=== PATIENT | male | born 1955 | race Caucasian/White ===

== ENCOUNTER 2017-09-30 07:44 | Inpatient (IN) | payer OTHER, MEDICARE, SELFPAY ==
[2017-09-30] VITALS (13 sets, daily range): BP systolic 105–159; BP diastolic 69–77; PULSE 85–112; RESP 18–32; TEMP 37.4–38.2; O2SAT 95–97; BMI 25.0
[2017-09-30 07:56] LABS: Bedside Glucose 327 mg/dL (70-110)
--- NOTE | 2017-09-30 07:57 | ED.RN ---
PT STATES THAT HIS FALL HIS FROM HIS RT FOOT. UNKNOWN CAUSE OF SWELLING. PT STATES THAT IT IS A BURNING FEELING. WOKE UP APPROX 3 DAYS AGO WITH HIS RT FOOT SWELLING.
--- NOTE | 2017-09-30 08:03 | RAD_ITS ---
STUDY: X-RAY CHEST REASON FOR EXAM: Male, 61 years old. Cough. TECHNIQUE: Single AP portable view of the chest. COMPARISON: Comparison is made with prior study dated September 23, 2017. FINDINGS: EKG electrodes are seen. The lungs are clear and expanded. There is no demonstrated pleural abnormality. Normal size heart. Normal mediastinum and catherine. Normal visualized pulmonary arteries. Normal visualized aortic arch and descending thoracic aorta. There are diffuse degenerative changes of the visualized thoracic spine. Normal visualized ribs, clavicles, and shoulders. There is no demonstrated abnormality of the visualized soft tissue structures of the upper abdomen. RAD/Chest 1 View (Portable) IMPRESSION: The lungs are clear. Electronically Signed: Abel Casas MD at 9:23 EST Tel [phone], Service support ,
--- NOTE | 2017-09-30 08:05 | RAD_ITS ---
STUDY: X-RAY - RIGHT FOOT CLINICAL: Male, 61 years old. Swelling and bruising following a recent fall. TECHNIQUE: 4 view(s) of the foot. COMPARISON: None. FINDINGS: There is a plantar calcaneal spur. Normal visualized subtalar, talonavicular, calcaneocuboid, tarsal and tarsometatarsal articulations. Normal metatarsi. Normal metatarsophalangeal joint of the great toe. Normal tibial and fibular sesamoid bones. Normal interphalangeal joint of the great toe. Normal phalanges of the great toe. Normal second through fifth metatarsophalangeal joints. MR toe deformity. Diffuse soft tissue swelling. RAD/Foot min 3 Views IMPRESSION: Diffuse soft tissue swelling. Electronically Signed: Abel Casas MD at 9:25 EST Tel [phone], Service support ,
[2017-09-30 08:33] LABS: Absolute Lymphocyte Count 1.14 X10^3/ul (0.83-4.51); Absolute Neutrophil Count 15.9 X10^3/uL (2.0-7.7); Basophil# 0.01 X10^3/uL; Basophil% 0.1 % (0-1); Hematocrit 43.1 % (40-54); Hemoglobin 14.4 g/dl (13.0-16.5); Lymphocyte # 1.14 X10^3/ul (4.0); Lymphocyte % 6.1 % (19-41); Mean Corp Hgb Conc 33.4 g/gl (32-36); Mean Corpuscular Hgb 30.3 pg (27.0-32.0); Mean Corpuscular Volume 90.7 fL (80-94); Mean Platelet Vol. 10.1 fl (6.2-12.0); Monocyte# 1.55 X10^3/uL; Monocyte% 8.3 % (0-10); Neutrophil # 15.85 X10^3/uL (2.7-7.7); Neutrophil % 85.3 % (47-70); Platelet Count 148 K/mm3 (150-450); RBC Distribution Width CV 13.7 % (11.6-14.6); RBC Distribution Width SD 45.3 fl (35.1-43.9); Red Blood Count 4.75 M/mm3 (4.6-6.2); White Blood Count 18.6 K/mm3 (4.4-11.0)
[2017-09-30 08:35] LABS: Differential Indicated SCAN CRITERIA MET; POSITIVE COUNT NO; POSITIVE DIFFERENTIAL YES; POSITIVE MORPHOLOGY YES
[2017-09-30] MEDS: 0.9% Normal Saline 1,000 ML 150 ML IV ×3 (08:42→22:40)
[2017-09-30 08:49] LABS: ALB/GLOB Ratio 0.6 RATIO (0.9-2.4); AST(SGOT) 167 U/L (15-37); Alanine Aminotransfer ALT/SGPT 50 U/L (12-78); Albumin, Serum 3.2 g/dL (3.4-5.0); Alkaline Phosphatase 78 U/L (45-117); Anion Gap 12 (5-15); BUN 40 mg/dL (7-18); BUN/Creat Ratio 22.6 RATIO (10-20); Calcium,Total 9.6 mg/dL (8.5-10.1); Chloride 98 mmol/L (98-107); Creatinine, Serum 1.77 mg/dL (0.70-1.30); EST Glomerular Filtration Rate 41 mL/min (>60); Est Glom Filt Rate - Afr Amer 50 mL/min (>60); Glucose 356 mg/dL (70-110); Protein, Total 8.2 g/dL (6.4-8.2); Sodium Level 134 mmol/L (136-145)
--- NOTE | 2017-09-30 08:57 | ED.RN ---
LACTIC ACID 2.[address] THE LAB. DR TIRADO AWARE
[2017-09-30 08:59] LABS: Lactic Acid 2.8 mmol/L (0.4-2.0)
--- NOTE | 2017-09-30 09:08 | ED.VISSUMM ---
- ER Visit Summary Date of Service: 09/30/17 Chief Complaint: [Fall with right foot pain] History of Present Illness: The patient is a 61 M [resents the emergency department with pain in his right foot. Patient somewhat of a poor informant but does describe a fall about 3 days ago. Patient thinks he may have injured his foot at that time. He has had some discomfort in his right foot but was more severe this morning around 5 AM. Patient apparently attempted to get out of his seat at some point this morning and started to follow-up with somebody caught him and cannot help him down of the floor. He denies any injuries this morning. Patient denies fever. Patient has had a slight cough. Patient lives in a intermediate. Patient does not have a primary care physician locally.] Physical Examination: [HEENT-PERRLA, EOMI. Cranial nerves II through XII grossly intact. TMs clear. Mucous membranes dry. No adenopathy. Cardiovascular-regular rate and rhythm without murmur or ectopy Lungs-clear to auscultation, chest wall stable without crepitus or subcu emphysema Abdomen-normoactive bowel sounds, soft, nontender, no rebound or rigidity, no peritoneal signs. Extremities-intact ?4. Right foot-patient has diffuse erythema and ecchymosis noted. Patient has blistering to the sole of the foot noted with tenderness to palpation. She has some fluctuance noted over the area of blistering. There is a foul odor from the foot. Patient has normal dorsal pedal and posterior tibial pulses and normal cap refill. Test Results: [Blood cultures ordered. CBC with differential obtained showed an elevated white blood cell count of 18.6, hemoglobin 14, hematocrit 43, platelets 148. Chemistries unremarkable. BUN was 40, creatinine 1.77, glucose 356. X-rays of the right foot showed soft tissue swelling and no fractures noted and no evidence of osteomyelitis on my interpretation however official report from radiology pending. Chest x-ray also showed nothing acute as per my interpretation.] Lactate was elevated 2.8. Emergency Department Course and Treatment: [Patient was started on vancomycin and Unasyn IV. Patient received a 2 L normal saline fluid bolus.] Treatment Plan: [Admit for IV antibiotics and surgical consultation for possible I&D of right foot.] Disposition: [Admit] Impression: [Cellulitis/abscess right foot in diabetic patient Sepsis Renal insufficiency Diabetes] This note was generated with [employer] dictation software. It may contain incorrect words, spelling, and punctuation that were not noted in review of the chart prior to signing ED Disposition - Plan for ED Patient: Chief Complaint: Fall Referrals: Care Physician,No Primary [Primary Care Provider] -
--- NOTE | 2017-09-30 09:14 | ED.DCSUM_ITS ---
- ER Visit Summary Date of Service: 09/30/17 Chief Complaint: [Fall with right foot pain] History of Present Illness: The patient is a 61 M [resents the emergency department with pain in his right foot. Patient somewhat of a poor informant but does describe a fall about 3 days ago. Patient thinks he may have injured his foot at that time. He has had some discomfort in his right foot but was more severe this morning around 5 AM. Patient apparently attempted to get out of his seat at some point this morning and started to follow-up with somebody caught him and cannot help him down of the floor. He denies any injuries this morning. Patient denies fever. Patient has had a slight cough. Patient lives in a care home. Patient does not have a primary care physician locally.] Physical Examination: [HEENT-PERRLA, EOMI. Cranial nerves II through XII grossly intact. TMs clear. Mucous membranes dry. No adenopathy. Cardiovascular-regular rate and rhythm without murmur or ectopy Lungs-clear to auscultation, chest wall stable without crepitus or subcu emphysema Abdomen-normoactive bowel sounds, soft, nontender, no rebound or rigidity, no peritoneal signs. Extremities-intact ?4. Right foot-patient has diffuse erythema and ecchymosis noted. Patient has blistering to the sole of the foot noted with tenderness to palpation. She has some fluctuance noted over the area of blistering. There is a foul odor from the foot. Patient has normal dorsal pedal and posterior tibial pulses and normal cap refill. Test Results: [Blood cultures ordered. CBC with differential obtained showed an elevated white blood cell count of 18.6, hemoglobin 14, hematocrit 43, platelets 148. Chemistries unremarkable. BUN was 40, creatinine 1.77, glucose 356. X-rays of the right foot showed soft tissue swelling and no fractures noted and no evidence of osteomyelitis on my interpretation however official report from radiology pending. Chest x-ray also showed nothing acute as per my interpretation.] Lactate was elevated 2.8. Emergency Department Course and Treatment: [Patient was started on vancomycin and Unasyn IV. Patient received a 2 L normal saline fluid bolus.] Treatment Plan: [Admit for IV antibiotics and surgical consultation for possible I&D of right foot.] Disposition: [Admit] Impression: [Cellulitis/abscess right foot in diabetic patient Sepsis Renal insufficiency Diabetes] This note was generated with [employer] dictation software. It may contain incorrect words, spelling, and punctuation that were not noted in review of the chart prior to signing ED Disposition - Plan for ED Patient: Chief Complaint: Fall Referrals: Care Physician,No Primary [Primary Care Provider] -
--- NOTE | 2017-09-30 09:22 | PCM.HP.STD ---
Problem List (1) Falls Status: Acute (2) Diabetic foot infection Status: Chronic (3) Type 2 diabetes mellitus Status: Acute (4) Sepsis Status: Acute (5) Acute kidney injury Status: Acute (6) Hypertension Status: Chronic History of Present Illness Date of Admission: 09/30/17 Chief Complaint: Falls, foot infection The patient is a 61 year old M past medical history of type II DM complicated by peripheral neuropathy, hypertension, hyperlipidemia who comes in with complaints of pain in his right foot and a history of fall 3 days prior. Patient is a and follows up with the [facility], and is reportedly living in the halfway. History of bipolar disorder and drug use. He complains of chills but denied any fever. States he has had discomfort in his right foot for some time. He last had a fall this morning. Denied any chest pain no dizziness or feeling of going to pass out. Vitals in the ED showed temperature of 99.3F, heart rate was 112, blood pressure is 159/74, respiratory rate was 24 was saturating well at 96% on room air. WBC was 18.6, b 14.4, Plt 148, Na 134, 5.0, Cl 98, Co2 24, BUN 40, Cr 1.77, HbA1c 7.3, admitting lactic acid was 2.8 CXR was unremarkable. Right foot x-ray showed diffuse soft tissue swelling. CT scan of right foot showed degenerative changes, diffuse soft tissue edema without discrete drainable abscess. Past Medical History Past Medical History (Chronic Problems): Chronic Problems Diabetic foot infection (Chronic) Hypertension (Chronic) Allergies HYDROCODONE Allergy (Uncoded 09/30/17 07:54) Unknown Home Medications: Ambulatory Orders Medication Instructions Recorded Acetaminophen [Tylenol] 325 mg PO TID PRN 09/30/17 Ammonium Lactate 1 dose TOPICAL DAILY 09/30/17 Aspirin 81 mg PO DAILY 09/30/17 Capsaicin 1 dose TOPICAL DAILY 09/30/17 Diclofenac 4 gm TOPICAL BID 09/30/17 Divalproex Sodium [Depakote ER] 4 tab PO QHS 09/30/17 Gabapentin [Neurontin] 2 tab PO TID 09/30/17 Hydrochlorothiazide [Hctz] 25 mg PO DAILY 09/30/17 Lisinopril [Zestril] 20 mg PO BID 09/30/17 Metoprolol Tartrate [Lopressor 25 mg PO BID 09/30/17 (Beta Kely)] Twilight-3 Fatty Acids/Fish Oil [Fish 2 cap PO BID 09/30/17 Oil 1,000 mg Capsule] Primidone [Mysoline] 50 mg PO BID 09/30/17 Quetiapine Fumarate 3.5 tab PO QHS 09/30/17 Simvastatin 40 tab PO QHS 09/30/17 Tamsulosin HCl [Flomax] 1 tab PO DAILY 09/30/17 Surgical History: - - unknown Psychiatric History: No pertinent psych hx Smoking Status: Current every day smoker Tobacco Use: Cigarettes Alcohol: None Drugs: Cocaine - history - *Family History Maternal History Items: No pertinent history Paternal History Items: No pertinent history Review of Systems Constitutional: Denies: Anorexia, Chills, Fever, Malaise, Weakness, Weight Change Eyes: Denies: Blurred vision, Cataracts, Conjunctivae Inflammation, Pain, Redness HEENT: Denies: Difficulty Swallowing, Head Aches, Hearing Changes, Nasal Congestion, Sinus Congestion, Sinus Drainage, Sore Throat, Visual Changes Cardiovascular: Denies: Chest Pain, Claudication, Edema, Orthopnea, Palpitations, Paroxysmal Noc. Dyspnea, Syncope Respiratory: Denies: Cough, Shortness of Breath, Shortness of breath at rest, Shortness of breath upon exertion, Sputum production Gastrointestinal: Denies: Abdominal Pain, Constipation, Hematemesis, Nausea, Vomiting Genitourinary: Denies: Dysuria, Frequency, Incontinence Musculoskeletal: Denies: Joint Pain, Joint stiffness, Joint swelling, Joint Tenderness Skin: Denies: Dryness, Jaundice, Rash, Wounds Neurological: Denies: Blurred vision, Double vision, Difficulty swallowing, Focal weakness, Numbness, Tingling Psychiatric: Denies: Anxiety, Depression, Homicidal Ideations, Suicidal Ideations Endocrine: Denies: Change in Body Habitus, Heat/ Cold Intolerance Hematologic/ Lymphatic: Denies: Anemia, Easy Bruising, Easy Bleeding, Petechiae VTE Information - Inpt Only VTE Present on Admission: No VTE Pharm Prophylaxis ordered?: Yes Patient Problems: Active and Suspected Problems Falls (Acute) Type 2 diabetes mellitus (Acute) Sepsis (Acute) Acute kidney injury (Acute) Type 2 diabetes mellitus with diabetic polyneuropathy (Acute) Abscess of right foot (Acute) - Physical Exam General: Alert, Oriented x3, Cooperative, No apparent distress HEENT: Atraumatic, PERRLA, EOMI, Normocephalic Oral: Moist Mucosa Neck: Supple Lungs: Clear to auscultation, Normal air movement Cardiovascular: Regular rate, Regular Rhythm, Normal S1, Normal S2, No murmurs Abdomen: Bowel Sounds Present, Soft, Non Tender, Non-Distended, No Hepato-splenomegaly Extremities: Edema - of the right foot with erythema extending over the lower leg. Prominent bulge of the right plantar surface with ecchymosis and erythema, Tenderness, - - Diminished pulses of the right foot Skin: No rashes, No breakdown Musculoskeletal: No Tenderness to Palpation of Joints or Extremities Lymphatic: No Cervical, Supraclavicular, or Inguinal Adenopathy Neurological: Cranial nerves II-XII grossly intact, Neuro grossly intact Psych/Mental Status: Normal Affect, Appropriate Vital Signs Temp Pulse Resp BP Pulse Ox 99.3 F H 107 H 24 H 159/74 H 96 09/30/17 07:45 09/30/17 07:55 09/30/17 07:45 09/30/17 07:45 09/30/17 07:45 Oxygen Delivery Method Room Air Weight: 97.7 kg Body Mass Index (BMI) 30.0 Finger Stick Blood Glucose 256 Laboratory Tests Past 24 Hrs 09/30/17 09/30/17 09/30/17 08:13 08:13 08:13 WBC 18.6 H RBC 4.75 Hgb 14.4 Hct 43.1 MCV 90.7 MCH 30.3 MCHC 33.4 RDW 13.7 RDW Differential 45.3 H Plt Count 148 L MPV 10.1 Immature Gran % (Auto) 0.200 Neut % (Auto) 85.3 H Lymph % (Auto) 6.1 L [place] % (Auto) 8.3 Eos % (Auto) 0.0 Baso % (Auto) 0.1 Absolute Neuts (auto) 15.9 H Absolute Lymphs (auto) 1.14 Total Counted Pending Sodium 134 L Potassium 5.0 Chloride 98 Carbon Dioxide 24.0 Anion Gap 12 BUN 40 H Creatinine 1.77 H Estim Creat Clear Calc 45.50 Est GFR (MDRD) Af Amer 50 L Est GFR (MDRD) Non-Af 41 L BUN/Creatinine Ratio 22.6 H Glucose 356 H Lactic Acid 2.8 H Calcium 9.6 Total Bilirubin 0.60 AST 167 H ALT 50 Alkaline Phosphatase 78 Total Protein 8.2 Albumin 3.2 L Globulin 5.0 H Albumin/Globulin Ratio 0.6 L POC Glucose 09/30/17 07:49 POC Glucose 327 H Assessment/Plan Active and Suspected Problems Falls (Acute) Type 2 diabetes mellitus (Acute) Sepsis (Acute) Acute kidney injury (Acute) Type 2 diabetes mellitus with diabetic polyneuropathy (Acute) Abscess of right foot (Acute) 61y/o male with PMHx of hypertension, Type 2 DM complicated by neuropathy, bipolar disorder who comes in with complaints of right leg swelling and falls 1. Sepsis secondary to Right foot and lower extremity swelling, secondary to diabetic foot infection, CT scan of the leg as well as foot x-ray did not show any discrete abscess, patient has a noticeable collection in the plantar surface of the right foot, Patient has tachycardia, elevated white cell count, acute kidney injury, source of infection being the right foot. Lactic acid was 2.8 on admission, repeat has been 1.9 Plan: admit to [place], on telemetry, Podiatry consult, IV vancomycin and Zosyn, infectious disease consult, pain control, Doppler ultrasound of the right lower extremity 2. DM, type II complicated by peripheral neuropathy, with history of recurrent falls, and is on large doses of insulin, would start patient on half the dose of insulin and slowly working up, will continue on Accu-Cheks and insulin sliding scale, HbA1c 7.3, continue also on gabapentin 3. Hypertension, controlled, on metoprolol, hydrochlorothiazide and lisinopril, continue same and continue to monitor 4. Hyperlipidemia, on simvastatin 5. Bipolar disorder, on Seroquel and Depakote 6. Acute kidney injury likely related to current infection, will continue on IV fluids, recheck BMP in a.m. 7. DVT prophylaxis on Lovenox subcu Code Visit Inpatient E&M: 02902 Init Hosp L2
--- NOTE | 2017-09-30 09:24 | ED.RN ---
PT HAS BEEN UNABLE TO PROVIDE A UA AT THIS TIME. PER MD, DO NOT CATH AT THIS TIME.
[2017-09-30] MEDS: 0.9% Normal Saline 1,000 ML 1000 ML IV ×2 (09:28→10:25)
--- NOTE | 2017-09-30 09:49 | CT_ITS ---
STUDY: CT RIGHT FOOT REASON FOR EXAM: Male, 61 years old. Diabetic foot, suspected abscess RADIATION DOSAGE (If Supplied By Facility): CTDIvol = ( 7.68 ) mGy, DLP = ( 236.51 ) mGycm TECHNIQUE: Thin section transaxial imaging of the foot was obtained, with sagittal and coronal reconstructed images. Individualized dose optimization techniques were used for this CT. COMPARISON: Right foot films 09/30/2017 FINDINGS: There is no fracture or bony erosion. An enthesophyte is seen at the insertion of the Achilles tendon. A plantar calcaneal spur is present. There is slight subluxation of the navicular on the talus medially. Degenerative changes are seen within the midfoot. Normal metatarsi. Normal metatarsophalangeal joint of the great toe. Normal tibial and fibular sesamoid bones. Normal interphalangeal joint of the great toe. Normal phalanges of the great toe. Normal second through fifth metatarsophalangeal joints. Normal interphalangeal joints and phalanges of the lesser toes. There is diffuse soft tissue edema. No definite well-defined, drainable fluid collection. CT/Extremity Lower without Contra IMPRESSION: No discrete bony erosion. Degenerative changes, as detailed above. Diffuse soft tissue edema, without discrete drainable abscess. Electronically Signed: Asad Alford DO at 10:35 EST Tel , Service support ,
--- NOTE | 2017-09-30 10:31 | CON.PCM_ITS ---
Problem List (1) Diabetic foot infection Status: Acute Reason for Consult: foot infection Consulted by: Dr. Jones History of Present Illness: The patient is a 61 year old M with T2DM who presented with one week of progressive R foot pain, swelling, redness. Pain was severe, burning. No inciting events or trauma. Has some neuropathy. Developed fever and shaking chills. No recent abx. No drainage from foot. Came to ED, found to be septic , vanc/unasyn ordered, bcx sent. Full ROS Performed and neg except as noted above. - Medical History Past Medical History (Chronic Problems): Chronic Problems Hypertension (Chronic) Allergies/Adverse Reactions: Allergies HYDROCODONE Allergy (Uncoded 09/30/17 07:54) Unknown Home Medications: Ambulatory Orders Medication Instructions Recorded Acetaminophen [Tylenol] 325 mg PO TID PRN 09/30/17 Ammonium Lactate 1 dose TOPICAL DAILY 09/30/17 Aspirin 81 mg PO DAILY 09/30/17 Capsaicin 1 dose TOPICAL DAILY 09/30/17 Diclofenac 4 gm TOPICAL BID 09/30/17 Divalproex Sodium [Depakote ER] 4 tab PO QHS 09/30/17 Gabapentin [Neurontin] 2 tab PO TID 09/30/17 Hydrochlorothiazide [Hctz] 25 mg PO DAILY 09/30/17 Lisinopril [Zestril] 20 mg PO BID 09/30/17 Metoprolol Tartrate [Lopressor 25 mg PO BID 09/30/17 (Beta Kely)] Farber-3 Fatty Acids/Fish Oil [Fish 2 cap PO BID 09/30/17 Oil 1,000 mg Capsule] Primidone [Mysoline] 50 mg PO BID 09/30/17 Quetiapine Fumarate 3.5 tab PO QHS 09/30/17 Simvastatin 40 tab PO QHS 09/30/17 Tamsulosin HCl [Flomax] 1 tab PO DAILY 09/30/17 - Social History SMOKING STATUS:: Current every day smoker Drug Use: none Vital Signs Temp Pulse Resp BP Pulse Ox 99.4 F H 105 H 28 H 159/74 H 97 09/30/17 09:21 09/30/17 09:45 09/30/17 09:21 09/30/17 09:45 09/30/17 09:21 - Other Studies Radiology: [] reviewed Other Studies: [] Route of nutrition/ use of supplements: [] Nutritional Intake: [] IV Site: [] Hart Catheter: [] - Physical Exam General: Alert, Cooperative, - - ill appearing, shaking HEENT: Atraumatic, PERRLA, EOMI Neck: Supple, No Nodes Lungs: Clear to auscultation, Normal air movement Cardiovascular: No murmurs, Tachycardic Abdomen: Bowel Sounds Present, Soft, Non Tender, Non-Distended Extremities: Edema Skin: - - R foot with swelling, redness, tenderness, and ecchymosis on plantar side IV Site: Peripheral, without redness Neurological: Cranial nerves II-XII grossly intact - Assessment/Plan Antibiotics: [] Assessment/Plan: [] Active and Suspected Problems Falls (Acute) Diabetic foot infection (Acute) Type 2 diabetes mellitus (Acute) Sepsis (Acute) Acute kidney injury (Acute) Severe sepsis (leukocytosis, tachycardia, elevated lactate, GEMA) due to DM R foot infection, concerning for abscess/osteo - CT pending. Bcx sent. No open wound for culturing. Podiatry consulted. Would cover empirically with vanc/ zosyn. Likely will need surgical debridement, but will wait for imaging and podiatry eval. Thank you, will follow, d/w Dr. Jones.
--- NOTE | 2017-09-30 10:32 | ED.RN ---
[facility] CALL[facility] AND [facility] NO B[facility]S
[2017-09-30 11:20] LABS: Bedside Glucose 335 mg/dL (70-110)
[2017-09-30 11:23] LABS: Hemoglobin A1c 7.3 % (4.2-6.3)
[2017-09-30] MEDS: Lisinopril 20 MG Tablet PO ×2 (12:16→21:00)
[2017-09-30] MEDS: Tamsulosin HCl 0.4 MG Capsule PO (12:16)
[2017-09-30] MEDS: Primidone 50 MG Tablet PO ×2 (12:16→17:32)
[2017-09-30] MEDS: Metoprolol Tartrate 25 MG Tablet PO ×2 (12:16→21:00)
[2017-09-30] MEDS: Aspirin 81 MG TAB.CHEW PO (12:16)
[2017-09-30] MEDS: Omega-3 Acid Ethyl Esters 1 GM Capsule 2 GM PO ×2 (12:16→21:00)
[2017-09-30] MEDS: Enoxaparin 40 MG/0.4 ML Syringe SC (12:17)
[2017-09-30] MEDS: Gabapentin 600 MG Tablet PO ×2 (12:22→17:32)
[2017-09-30 12:26] LABS: Reflex Lactate? Y
--- NOTE | 2017-09-30 13:11 | VDLE_ITS ---
Reason For Study: SWELLING RIGHT GSV is normal. CFV is compressible, spontaneous, phasic, competent and demonstrates normal augmentation. FV is compressible, spontaneous, phasic, competent and demonstrates normal augmentation. POP V is compressible, spontaneous, phasic, competent and demonstrates normal augmentation. T/P Trunk is compressible. PTV is compressible. RT PerV is compressible. Procedure Exam performed portable in patient room. A preliminary report was called and/or faxed to [facility]. Interpretation Summary Deep veins of the right lower extremity are patent and compressible segmentally. There is no evidence of right lower extremity deep vein thrombosis. Valvular competence appears intact within the proximal deep venous system on the right . The right greater saphenous vein appears patent and compressible segmentally. Ordering Physician: Samantha Jones Performed By: Kiki Vazquez, DAHLIA, RVT
--- NOTE | 2017-09-30 13:19 | PCM.RX.CS ---
Subjective/Objective Date: 09/30/17 Time: 13:19 Antibiotic: Vancomycin Type of Consult: New start Labs: Sodium 134 mmol/L (136-145) L 09/30/17 08:13 Potassium 5.0 mmol/L (3.5-5.1) 09/30/17 08:13 Chloride 98 mmol/L (98-107) 09/30/17 08:13 Carbon Dioxide 24.0 mmol/L (21.0-32.0) 09/30/17 08:13 Anion Gap 12 (5-15) 09/30/17 08:13 BUN 40 mg/dL (7-18) H 09/30/17 08:13 Creatinine 1.77 mg/dL (0.70-1.30) H 09/30/17 08:13 Est GFR (MDRD) Af Amer 50 mL/min (>60) L 09/30/17 08:13 Est GFR (MDRD) Non-Af 41 mL/min (>60) L 09/30/17 08:13 BUN/Creatinine Ratio 22.6 RATIO (10-20) H 09/30/17 08:13 Glucose 356 mg/dL (70-110) H 09/30/17 08:13 Pharmacy Plan for Drug Dosing: Goal vancomycin trough 10-15 mcg/mL. Recommend vancomycin 1500mg IV q24h for est trough 12 mcg/mL. Check prior to 4th dose. Increase if renal function improves to baseline. Pharmacy Service will continue to monitor and adjust dosing as required. Pharmacy to order these labs: Trough - Vancomycin Labs to be done on (date): 10/03/17 Labs to be done (time): 09:00
[2017-09-30 13:32] LABS: Lactic Acid 1.9 mmol/L (0.4-2.0)
--- NOTE | 2017-09-30 13:37 | PCM.CONS.GEN ---
Problem List (1) Type 2 diabetes mellitus with diabetic polyneuropathy Status: Acute (2) Abscess of right foot Status: Acute (3) Diabetic foot infection Status: Chronic (4) Sepsis Status: Acute (5) Charcot's joint of right foot Status: Acute Reason for Consult Date of Consultation: 09/30/17 Reason for Consultation: Right foot infection History of Present Illness: The patient is a 61 year old M with history of diabetes and other comorbidities as seen bedside this afternoon for right foot that is swollen, red, hot, and bruised. He reports he first noticed this condition on Thursday approximately 2 days ago. He denies trauma or puncture wound. He denies history of previous foot infections or ulcers. He is concerned he does not live in a clean environment and reports there are dogs going to the bathroom all over the house on a daily basis. He does have some right foot pain. He does not feel stable and denies claudication. It is not clear if he is ambulating at this time. He was seen by infectious disease earlier today who ordered a CT scan and this is pending. He is very lethargic during exam and is able to participate in a partial manner. Past Medical History Past Medical History (Chronic Problems): Chronic Problems Diabetic foot infection (Chronic) Hypertension (Chronic) Allergies HYDROCODONE Allergy (Uncoded 09/30/17 07:54) Unknown Home Medications: Ambulatory Orders Medication Instructions Recorded Acetaminophen [Tylenol] 325 mg PO TID PRN 09/30/17 Ammonium Lactate 1 dose TOPICAL DAILY 09/30/17 Aspirin 81 mg PO DAILY 09/30/17 Capsaicin 1 dose TOPICAL DAILY 09/30/17 Diclofenac 4 gm TOPICAL BID 09/30/17 Divalproex Sodium [Depakote ER] 4 tab PO QHS 09/30/17 Gabapentin [Neurontin] 2 tab PO TID 09/30/17 Hydrochlorothiazide [Hctz] 25 mg PO DAILY 09/30/17 Lisinopril [Zestril] 20 mg PO BID 09/30/17 Metoprolol Tartrate [Lopressor 25 mg PO BID 09/30/17 (Beta Kely)] [place]-3 Fatty Acids/Fish Oil [Fish 2 cap PO BID 09/30/17 Oil 1,000 mg Capsule] Primidone [Mysoline] 50 mg PO BID 09/30/17 Quetiapine Fumarate 3.5 tab PO QHS 09/30/17 Simvastatin 40 tab PO QHS 09/30/17 Tamsulosin HCl [Flomax] 1 tab PO DAILY 09/30/17 Lives: - - He lives with others in this location is not known if this is at a [facility] or with family or friends Smoking Status: Current every day smoker - *Family History Maternal History Items: No pertinent history Paternal History Items: No pertinent history Review of Systems Constitutional: Reports: Weakness, Fatigue. Denies: Chills, Fever Cardiovascular: Denies: Claudication Respiratory: Denies: Cough Musculoskeletal: Reports: Foot Pain. Denies: Leg Pain Skin: Reports: Skin Changes. Denies: Wounds Neurological: Reports: Numbness Patient Problems: Active and Suspected Problems Falls (Acute) Type 2 diabetes mellitus (Acute) Sepsis (Acute) Acute kidney injury (Acute) Type 2 diabetes mellitus with diabetic polyneuropathy (Acute) Abscess of right foot (Acute) Charcot's joint of right foot (Acute) - Physical Exam General: Alert, Cooperative, No apparent distress, Lethargic HEENT: Atraumatic Extremities: Diminished Peripheral Pulses, Edema - Right foot with calor Skin: - - Bulla to plantar medial arch with serous drainage only noted on drainage. Bulla sub-first metatarsal head of the right foot with serous drainage noted upon scalpel drainage. No purulence on expression. There is significant ecchymosis and some erythema to the plantar forefoot and medial arch of the right lower extremity. The compartments remain soft. There is no crepitus on palpation to the forefoot. Musculoskeletal: No Tenderness to Palpation of Joints or Extremities, Muscle Wasting, Tenderness - Pain to palpate arch and edema is noted. There is minimal laxity noted with the midfoot manipulation with discomfort Neurological: - - Lack of sensation light touch Psych/Mental Status: Normal Affect, Appropriate Vital Signs Temp Pulse Resp BP Pulse Ox 100.8 F H 108 H 32 H 137/71 H 97 09/30/17 11:07 09/30/17 12:16 09/30/17 11:07 09/30/17 11:07 09/30/17 11:07 Oxygen Delivery Method Room Air Weight: 81.4 kg Body Mass Index (BMI) 25.0 Intake and Output for Last 24 Hours 09/28/17 09/29/17 09/30/17 23:59 23:59 23:59 Intake Total 2177 / 2177 Balance 2176 / 217 Laboratory Tests Past 24 Hrs 09/30/17 12:50 Lactic Acid 1.9 POC Glucose 09/30/17 11:06 POC Glucose 335 H Assessment/Plan Active and Suspected Problems Falls (Acute) Type 2 diabetes mellitus (Acute) Sepsis (Acute) Acute kidney injury (Acute) Type 2 diabetes mellitus with diabetic polyneuropathy (Acute) Abscess of right foot (Acute) Charcot's joint of right foot (Acute) Right foot infection Differential and concurrent diagnosis also includes Charcot right talonavicular joint Sepsis diabetes with neuropathy High fall risk Other comorbidities I reviewed and discussed the patient case with him today. I reviewed his diagnostic data including his labs. His leukocytosis of 18.5 is noted. ESR and C-reactive protein are pending. 3 right foot x-rays are noted without soft tissue emphysema, definitive osseous destruction, or foreign body. There is no acute fracture noted. There is some subluxation of the navicular on the talus where approximately 70% of the joint is still congruent. There is edema noted. Clinically his foot is red and warm this is consistent with both an infection and Charcot event. I recommend treating both at this time. Infectious disease is on consultation and input is greatly appreciated. He continues on broad-spectrum antibiotics of vancomycin and Zosyn. After verbal consent and alcohol preparation a 15 blade was used to drain his bulla sites ?2 and a deep aerobic and anaerobic wound culture was obtained. His CT scan was also reviewed without definitive abscess or osseous destruction. Again, his soft tissue emphysema is noted And subluxation of the navicular of the talus. A dry gauze dressing and Kerlix and Jorge wrap was applied. He is advised to elevate this limb. To maintain a nonweightbearing strict status with assistive device and assistance from a staff medical member is encouraged. I will follow him closely while in house. If improvement is not clinically noted surgical drainage and exploration will be considered. Medical management and DVT prophylaxis per primary team is appreciated. I also recommend care coordination start for discharge planning; the patient expressed that he is not living safe conditions. Please not hesitate to call if you have any questions. Thank you very much for the consultation. Valery Faulkner, [facility] [phone]
--- NOTE | 2017-09-30 13:56 | CASEMGMT ---
Social Work Note Placed call to EDGAR Cummins, at [facility] and confirmed that the pt would not have usp covered under the [facility] as he is only 50% service connected. Inquires if pt needs placement and inform that EDGAR is not sure yet, but depending if he ends up needing wound care or IV antibiotics it would be a possibility. Will await to see what outcome of ID and podiatry consults are to begin discussion with pt's guardian regarding discharge plan. EDGAR to continue to follow and assist with discharge planning. Mariela Fairbanks, SENIOR PREMIUM AUDITOR SALT OPERATOR
--- NOTE | 2017-09-30 14:10 | RAD_ITS ---
STUDY: X-RAY - RIGHT FOOT CLINICAL: Male, 61 years old. Infection and possible abscess of the foot. TECHNIQUE: 3 view(s) of the foot. COMPARISON: None. FINDINGS: There is an enthesophyte involving the posterior superior calcaneus at the site of insertion of the Achilles tendon. Small plantar spur. Normal visualized subtalar, talonavicular, calcaneocuboid, tarsal and tarsometatarsal articulations. Normal metatarsi. Normal metatarsophalangeal joint of the great toe. Normal tibial and fibular sesamoid bones. Normal interphalangeal joint of the great toe. Normal phalanges of the great toe. Normal second through fifth metatarsophalangeal joints. Normal interphalangeal joints and phalanges of the lesser toes. Diffuse soft tissue swelling. RAD/Foot min 3 Views IMPRESSION: Diffuse soft tissue swelling. Electronically Signed: Abel Casas MD at 14:43 EST Tel [phone], Service support ,
--- NOTE | 2017-09-30 14:53 | NURSING ---
Awaiting to give patient lunch and afternoon meds- pt had doppler, taken to xray and is working with therapy at this time. Will see patient as soon as therapy complete.
[2017-09-30] MEDS: Piperacil/Tazobactam 3.375 GM/50 ML ML IV ×2 (15:28→22:40)
[2017-09-30 15:34] LABS: Pathologist Review Reviewed
[2017-09-30 16:03] LABS: Erythrocyte Sedimentation Rate 49 mm/hr (0-20)
[2017-09-30 16:11] LABS: Bedside Glucose 249 mg/dL (70-110)
[2017-09-30] MEDS: Glucerna Shake 120 ML LIQUID PO ×2 (17:34→20:58)
[2017-09-30 17:40] LABS: Bedside Glucose 214 mg/dL (70-110)
[2017-09-30] MEDS: Atorvastatin Calcium 20 MG Tablet PO (21:00)
[2017-09-30 21:41] LABS: Bedside Glucose 193 mg/dL (70-110)
[2017-10-01] VITALS (17 sets, daily range): BP systolic 137–162; BP diastolic 72–80; PULSE 62–83; RESP 16–18; TEMP 36.8–37.6; O2SAT 92–98; BMI 25.0
[2017-10-01] MEDS: oxyCODONE 5 MG Tablet PO ×2 (01:35→21:49)
[2017-10-01] MEDS: 0.9% Normal Saline 1,000 ML 150 ML IV ×2 (05:27→14:09)
[2017-10-01] MEDS: Piperacil/Tazobactam 3.375 GM/50 ML ML IV ×3 (06:08→22:40)
[2017-10-01 06:36] LABS: Bedside Glucose 135 mg/dL (70-110)
[2017-10-01 06:40] LABS: Absolute Lymphocyte Count 1.03 X10^3/ul (0.83-4.51); Absolute Neutrophil Count 5.3 X10^3/uL (2.0-7.7); Basophil# 0.02 X10^3/uL; Basophil% 0.3 % (0-1); Eosinophil# 0.03 X10^3/uL; Eosinophils% 0.4 % (0-5); Hematocrit 35.3 % (40-54); Hemoglobin 11.8 g/dl (13.0-16.5); Lymphocyte # 1.03 X10^3/ul (4.0); Lymphocyte % 13.2 % (19-41); Mean Corp Hgb Conc 33.4 g/gl (32-36); Mean Corpuscular Volume 89.8 fL (80-94); Monocyte% 17.9 % (0-10); Neutrophil # 5.31 X10^3/uL (2.7-7.7); Neutrophil % 68.1 % (47-70); Platelet Count 129 K/mm3 (150-450); RBC Distribution Width CV 13.5 % (11.6-14.6); RBC Distribution Width SD 43.5 fl (35.1-43.9); Red Blood Count 3.93 M/mm3 (4.6-6.2); White Blood Count 7.8 K/mm3 (4.4-11.0)
[2017-10-01 06:47] LABS: POSITIVE COUNT NO; POSITIVE DIFFERENTIAL NO; POSITIVE MORPHOLOGY NO
[2017-10-01 07:20] LABS: Anion Gap 8 (5-15); BUN 23 mg/dL (7-18); BUN/Creat Ratio 22.3 RATIO (10-20); Calcium,Total 8.2 mg/dL (8.5-10.1); Chloride 105 mmol/L (98-107); Cholesterol 81 mg/dL (200); Creatinine, Serum 1.03 mg/dL (0.70-1.30); EST Glomerular Filtration Rate 77 mL/min (>60); Est Glom Filt Rate - Afr Amer 94 mL/min (>60); Estimated Creatinine Clearance 78.18 ml/min; Glucose 133 mg/dL (70-110); High Density Lipoprotein 15 mg/dL; Potassium 3.7 mmol/L (3.5-5.1); Sodium Level 136 mmol/L (136-145); Triglycerides 147 mg/dL; Very Low Density Lipoprotein 29 mg/dL (5-40)
[2017-10-01 07:24] LABS: Bacteria 0 SEEN /hpf (None Seen); Mucous, Urine 0 SEEN /hpf (<or=2+); Red Blood Cells-Urine 0 SEEN /hpf (0-5)
[2017-10-01 07:28] LABS: Color, Urine Yellow (Yellow); Glucose, Dipstick 250 mg/dl (Normal); Ketone-Dipstick 5 mg/dl (Negative); Leukocyte Esterase-Dipstick Negative /ul (Negative); Nitrite-Dipstick Negative (Negative); Occult Blood-Urine 50 /ul (Negative); Protein-Dipstick 15 mg/dl (Negative); Urine Bilirubin Dipstick Negative (Negative); Urine Clarity Clear (Clear); Urine Urobilinogen 4 mg/dl (Normal); Urine pH 6.5 (5.0 - 8.0)
[2017-10-01 07:36] LABS: Squamous Epithelial Cells - UA 0-5 SEEN /hpf (0-5); White Blood Cells 0-5 SEEN /hpf (0-5)
[2017-10-01] MEDS: Tamsulosin HCl 0.4 MG Capsule PO (07:57)
[2017-10-01] MEDS: Primidone 50 MG Tablet PO ×2 (07:57→21:50)
[2017-10-01] MEDS: Gabapentin 600 MG Tablet PO ×3 (07:57→21:51)
[2017-10-01] MEDS: Aspirin 81 MG TAB.CHEW PO (07:57)
[2017-10-01] MEDS: Omega-3 Acid Ethyl Esters 1 GM Capsule 2 GM PO ×2 (07:58→21:52)
[2017-10-01] MEDS: Enoxaparin 40 MG/0.4 ML Syringe SC (07:58)
[2017-10-01] MEDS: Lisinopril 20 MG Tablet PO ×2 (08:00→21:51)
[2017-10-01] MEDS: Metoprolol Tartrate 25 MG Tablet PO ×2 (08:01→21:52)
[2017-10-01] MEDS: Glucerna Shake 120 ML LIQUID PO ×2 (08:09→22:00)
[2017-10-01 09:11] LABS: Bedside Glucose 130 mg/dL (70-110)
--- NOTE | 2017-10-01 09:46 | PCM.PROGNOTE ---
Patient Problems: Active and Suspected Problems Falls (Acute) Type 2 diabetes mellitus (Acute) Sepsis (Acute) Acute kidney injury (Acute) Type 2 diabetes mellitus with diabetic polyneuropathy (Acute) Abscess of right foot (Acute) Charcot's joint of right foot (Acute) Subjective: This 61-year-old male with multiple comorbidities seen bedside this morning for follow-up of right foot infection with sepsis. He is more alert and able to participate in his exam this morning. It is noted that he is hard of hearing. He reports decreased foot pain and nausea or chills. He reports of fever last night. He is able to participate in his exam more this morning. - Physical Exam General: Alert, Oriented x3, Cooperative Extremities: No cyanosis, Capillary Refill Less than 3 Seconds, No Calf Tenderness - negative rai and jones signs bilateral, Diminished Peripheral Pulses, Edema - bilateral lower extremity. slightly decreased to right foot and leg Skin: - - Increased skin wrinkles noted with decreased edema to the right lower extremity. The intensity of the erythema is decreasing to the right foot. There is still a plantar arch ecchymosis area with bulla that is draining serous fluid and appears to have additional fluid loculation. There is no crepitus on deep palpation of the tissues however it is painful on the plantar medial arch. Musculoskeletal: Muscle Wasting, Tenderness - Plantar medial arch palpation pain. No pain with passive manipulation of the digits or midfoot. Neurological: - - Diminished sensation light touch right foot Psych/Mental Status: Normal Affect, Appropriate Vital Signs Temp Pulse Resp BP Pulse Ox 98.3 F 83 18 162/72 H 98 10/01/17 08:12 10/01/17 08:12 10/01/17 08:12 10/01/17 08:12 10/01/17 08:12 Oxygen Delivery Method Room Air Weight: 81.4 kg Body Mass Index (BMI) 25.0 Intake and Output for Last 24 Hours 09/29/17 09/30/17 10/01/17 23:59 23:59 23:59 Intake Total 3322 / 3322 2248 / 2248 Output Total 1000 / 1000 850 / 850 Balance 2322 / 2322 1398 / 1398 Laboratory Tests Past 24 Hrs 09/30/17 09/30/17 10/01/17 12:50 15:15 00:30 WBC RBC Hgb Hct MCV MCH MCHC RDW RDW Differential Plt Count MPV Immature Gran % (Auto) Neut % (Auto) Lymph % (Auto) [place] % (Auto) Eos % (Auto) Baso % (Auto) Absolute Neuts (auto) Absolute Lymphs (auto) Total Counted ESR 49 H Sodium Potassium Chloride Carbon Dioxide Anion Gap BUN Creatinine Estim Creat Clear Calc Est GFR (MDRD) Af Amer Est GFR (MDRD) Non-Af BUN/Creatinine Ratio Glucose Lactic Acid 1.9 Calcium Triglycerides Cholesterol LDL Cholesterol VLDL Cholesterol HDL Cholesterol Urine Color Yellow Urine Clarity Clear Urine pH 6.5 Ur Specific [place] 1.010 Urine Protein 15 H Urine Glucose (UA) 250 H Urine Ketones 5 H Urine Occult Blood 50 H Urine Nitrite Negative Urine Bilirubin Negative Urine Urobilinogen 4 H Ur Leukocyte Esterase Negative Urine RBC 0 SEEN Urine WBC 0-5 SEEN Ur Squamous Epith Cells 0-5 SEEN Urine Bacteria 0 SEEN Urine Mucus 0 SEEN 10/01/17 10/01/17 05:52 05:52 WBC 7.8 RBC 3.93 L Hgb 11.8 L Hct 35.3 L MCV 89.8 MCH 30.0 MCHC 33.4 RDW 13.5 RDW Differential 43.5 Plt Count 129 L MPV 10.0 Immature Gran % (Auto) 0.100 Neut % (Auto) 68.1 Lymph % (Auto) 13.2 L [place] % (Auto) 17.9 H Eos % (Auto) 0.4 Baso % (Auto) 0.3 Absolute Neuts (auto) 5.3 Absolute Lymphs (auto) 1.03 Total Counted Not Reportable ESR Sodium 136 Potassium 3.7 Chloride 105 Carbon Dioxide 23.0 Anion Gap 8 BUN 23 H Creatinine 1.03 Estim Creat Clear Calc 78.18 Est GFR (MDRD) Af Amer 94 Est GFR (MDRD) Non-Af 77 BUN/Creatinine Ratio 22.3 H Glucose 133 H Lactic Acid Calcium 8.2 L Triglycerides 147 Cholesterol 81 LDL Cholesterol 37 VLDL Cholesterol 29 HDL Cholesterol 15 L Urine Color Urine Clarity Urine pH Ur Specific [place] Urine Protein Urine Glucose (UA) Urine Ketones Urine Occult Blood Urine Nitrite Urine Bilirubin Urine Urobilinogen Ur Leukocyte Esterase Urine RBC Urine WBC Ur Squamous Epith Cells Urine Bacteria Urine Mucus POC Glucose 10/01/17 10/01/17 09/30/17 07:53 06:31 20:48 POC Glucose 130 H 135 H 193 H 09/30/17 09/30/17 09/30/17 17:31 15:12 11:06 POC Glucose 214 H 249 H 335 H Assessment/Plan Active and Suspected Problems Falls (Acute) Type 2 diabetes mellitus (Acute) Sepsis (Acute) Acute kidney injury (Acute) Type 2 diabetes mellitus with diabetic polyneuropathy (Acute) Abscess of right foot (Acute) Charcot's joint of right foot (Acute) Right foot infection Sepsis resolving diabetes with neuropathy High fall risk Other comorbidities I reviewed and discussed the patient case with him today. I reviewed his diagnostic data including his labs. His leukocytosis of 18.5 has decreased to 7.8. ESR was 49. 3 right foot x-rays are noted without soft tissue emphysema, definitive osseous destruction, or foreign body. There is no acute fracture noted. After reviewing the advanced imaging closer it is noted that there is a very hypertrophic navicular with medial extension and most of the joint does appear to be well aligned there is no fragmentation or subluxation. Clinically his foot is red and warm this is consistent with an infection. Although there is slight improvement since yesterday, there is new fluid formation the plantar medial arch with continued palpation pain. I am concerned an abscess is starting to loculated. There is no previous identifiable abscess on the CT scan however upon close review it is noted that there is increased soft tissue emphysema along this plane of concern. I recommend surgical incision and drainage and debridement today in the operating room with either myself, Dr. Faulkner or Dr. Marsh pending operating room time availability. He was made n.p.o. at this time and his heparin was held. Consents will be signed. He understands the planned procedure, possible benefits, risks, complications, and anticipated healing time and management. He understands this may be a staged procedure and he is still at risk for limb loss. Complications include but are not limited to the following: Continued pain, swelling, drainage, delayed or nonhealing, need for further surgery, deformity progression, scarring, blood clot, allergy, loss of limb, function, life. Infectious disease is on consultation and input is greatly appreciated. He continues on broad-spectrum antibiotics of vancomycin and Zosyn. His culture results obtained yesterday are only growing out staph aureus at this time and the susceptibilities and final is still pending. His fever has resolved. An MRI would be helpful for surgical planning if this can be done prior to his surgical time this afternoon. He is able to answer more questions today and complete the MRI safety screening exam and his medical records from his other areas of treatment including [facility] and [facility] are being sent over for further review. I answered his questions. This plan was discussed with Dr. Jones. Valery Faulkner, [facility] [phone]
--- NOTE | 2017-10-01 11:01 | PN.ID_ITS ---
Patient Problems: Active and Suspected Problems Falls (Acute) Type 2 diabetes mellitus (Acute) Sepsis (Acute) Acute kidney injury (Acute) Type 2 diabetes mellitus with diabetic polyneuropathy (Acute) Abscess of right foot (Acute) Charcot's joint of right foot (Acute) Subjective: No fever, no n/v/d. Foot pain controlled. - Physical Exam General: Alert, Cooperative Lungs: Clear to auscultation, Normal air movement Cardiovascular: Regular rate, Regular Rhythm Abdomen: Soft, Non Tender, Non-Distended Skin: Ulcer/ Wound - Foot s/p I&D, some improvement in swelling/redness Vital Signs Temp Pulse Resp BP Pulse Ox 98.3 F 83 18 162/72 H 98 10/01/17 08:12 10/01/17 08:12 10/01/17 08:12 10/01/17 08:12 10/01/17 08:12 Oxygen Delivery Method Room Air Weight: 81.4 kg Body Mass Index (BMI) 25.0 Intake and Output for Last 24 Hours 09/29/17 09/30/17 10/01/17 23:59 23:59 23:59 Intake Total 3322 / 3322 3307 / 3307 Output Total 1000 / 1000 1550 / 1550 Balance 2322 / 2322 1757 / 1757 Microbiology Past 72 Hours 09/30/17 Unknown Gram Stain - Final Wound Abcess - Aerobic & Anaerobic Swabs Laboratory Tests Past 24 Hrs 09/30/17 09/30/17 10/01/17 12:50 15:15 00:30 WBC RBC Hgb Hct MCV MCH MCHC RDW RDW Differential Plt Count MPV Immature Gran % (Auto) Neut % (Auto) Lymph % (Auto) [place] % (Auto) Eos % (Auto) Baso % (Auto) Absolute Neuts (auto) Absolute Lymphs (auto) Total Counted ESR 49 H Sodium Potassium Chloride Carbon Dioxide Anion Gap BUN Creatinine Estim Creat Clear Calc Est GFR (MDRD) Af Amer Est GFR (MDRD) Non-Af BUN/Creatinine Ratio Glucose Lactic Acid 1.9 Calcium Triglycerides Cholesterol LDL Cholesterol VLDL Cholesterol HDL Cholesterol Urine Color Yellow Urine Clarity Clear Urine pH 6.5 Ur Specific [place] 1.010 Urine Protein 15 H Urine Glucose (UA) 250 H Urine Ketones 5 H Urine Occult Blood 50 H Urine Nitrite Negative Urine Bilirubin Negative Urine Urobilinogen 4 H Ur Leukocyte Esterase Negative Urine RBC 0 SEEN Urine WBC 0-5 SEEN Ur Squamous Epith Cells 0-5 SEEN Urine Bacteria 0 SEEN Urine Mucus 0 SEEN 10/01/17 10/01/17 05:52 05:52 WBC 7.8 RBC 3.93 L Hgb 11.8 L Hct 35.3 L MCV 89.8 MCH 30.0 MCHC 33.4 RDW 13.5 RDW Differential 43.5 Plt Count 129 L MPV 10.0 Immature Gran % (Auto) 0.100 Neut % (Auto) 68.1 Lymph % (Auto) 13.2 L [place] % (Auto) 17.9 H Eos % (Auto) 0.4 Baso % (Auto) 0.3 Absolute Neuts (auto) 5.3 Absolute Lymphs (auto) 1.03 Total Counted Not Reportable ESR Sodium 136 Potassium 3.7 Chloride 105 Carbon Dioxide 23.0 Anion Gap 8 BUN 23 H Creatinine 1.03 Estim Creat Clear Calc 78.18 Est GFR (MDRD) Af Amer 94 Est GFR (MDRD) Non-Af 77 BUN/Creatinine Ratio 22.3 H Glucose 133 H Lactic Acid Calcium 8.2 L Triglycerides 147 Cholesterol 81 LDL Cholesterol 37 VLDL Cholesterol 29 HDL Cholesterol 15 L Urine Color Urine Clarity Urine pH Ur Specific [place] Urine Protein Urine Glucose (UA) Urine Ketones Urine Occult Blood Urine Nitrite Urine Bilirubin Urine Urobilinogen Ur Leukocyte Esterase Urine RBC Urine WBC Ur Squamous Epith Cells Urine Bacteria Urine Mucus POC Glucose 10/01/17 10/01/17 09/30/17 07:53 06:31 20:48 POC Glucose 130 H 135 H 193 H 09/30/17 09/30/17 09/30/17 17:31 15:12 11:06 POC Glucose 214 H 249 H 335 H Route of nutrition/ use of supplements: [] Nutritional Intake: [] IV Site: [] Hart Catheter: [] - Assessment/Plan Antibiotics: [] Assessment/Plan: [] Active and Suspected Problems Falls (Acute) Diabetic foot infection (Acute) Type 2 diabetes mellitus (Acute) Sepsis (Acute) Acute kidney injury (Acute) Severe sepsis (leukocytosis, tachycardia, elevated lactate, GEMA) due to DM R foot infection, concerning for abscess/osteo - CT showed no abscess. Labs and vital improved, foot looks better. Cont with vanc/zosyn. I&D done, cx pending will follow, d/w Dr. Faulkner
--- NOTE | 2017-10-01 11:12 | EKG12_ITS ---
Test Reason : PRE-OP Blood Pressure : / mmHG Vent. Rate : 074 BPM Atrial Rate : 074 BPM P-R Int : 172 ms QRS Dur : 122 ms QT Int : 390 ms P-R-T Axes : 063 027 -03 degrees QTc Int : 432 ms Normal sinus rhythm Right bundle branch block Abnormal ECG When compared with ECG of 23-SEP-2017 21:52, No significant change was found Confirmed by JOHN PLUMMER, SEKOU ([id number]), innovation analyst SHOAIB CHRISTIANSON ([id number]) on 10/13/2017 8:53:47 AM Referred By: ELIZABETH Confirmed By:SEKOU LOPEZ MD
[2017-10-01 12:31] LABS: Bedside Glucose 212 mg/dL (70-110)
--- NOTE | 2017-10-01 12:45 | CASEMGMT ---
Social Work Note Reviewed pt's chart and pt is requiring a significant amount of assistance with ADL's. Anticipate potential need for SNF placement at discharge. As confirmed yesterday pt is not service connected enough for the [facility] to assist with payment for SNF and would need to be covered under his Medicare Part A after a 3 day stay. Placed call to pt's EAMNUEL, Rober Houser, and left vm without pt identifiers requesting a return phone call. [facility] had stopped at [facility] and left card with contact information. Placed call and also left vm providing SW's contact information. Will continue to follow and assist with discharge planning. ADELAIDE Roman TIRE CHANGER
--- NOTE | 2017-10-01 14:46 | PCM.PN.HOSP ---
Patient Problems: Active and Suspected Problems Falls (Acute) Type 2 diabetes mellitus (Acute) Sepsis (Acute) Acute kidney injury (Acute) Type 2 diabetes mellitus with diabetic polyneuropathy (Acute) Abscess of right foot (Acute) Charcot's joint of right foot (Acute) Subjective: Patient was seen and examined. Has no new complaints. Denies any fever or chills. Discussed with Dr. Faulkner, will be going for I&D tomorrow. Records from [place] and [facility] are still pending Objective: Physical Exam General: Alert, Oriented x3, Cooperative, No apparent distress HEENT: Atraumatic, PERRLA, EOMI, Normocephalic Oral: Moist Mucosa Neck: Supple Lungs: Clear to auscultation, Normal air movement Cardiovascular: Regular rate, Regular Rhythm, Normal S1, Normal S2, No murmurs Abdomen: Bowel Sounds Present, Soft, Non Tender, Non-Distended, No Hepato-splenomegaly Extremities: Edema - of the right foot with erythema extending over the lower leg. Prominent bulge of the right plantar surface with ecchymosis and erythema, Tenderness, - - Diminished pulses of the right foot Skin: No rashes, No breakdown Musculoskeletal: No Tenderness to Palpation of Joints or Extremities Lymphatic: No Cervical, Supraclavicular, or Inguinal Adenopathy Neurological: Cranial nerves II-XII grossly intact, Neuro grossly intact Psych/Mental Status: Normal Affect, Appropriate Vitals/I&O's: Vital Signs Temp Pulse Resp BP Pulse Ox 99.4 F H 71 18 149/80 H 97 10/01/17 14:04 10/01/17 14:04 10/01/17 14:04 10/01/17 14:04 10/01/17 14:04 Oxygen Delivery Method Room Air Weight: 81.4 kg Body Mass Index (BMI) 25.0 Intake and Output for Last 24 Hours 09/29/17 09/30/17 10/01/17 23:59 23:59 23:59 Intake Total 3322 / 3322 3307 / 3307 Output Total 1000 / 1000 1550 / 1550 Balance 2322 / 2322 1757 / 1757 Microbiology Past 72 Hours 09/30/17 Unknown Wound Abcess - Aerobic & Anaerobic Swabs Gram Stain - Final 09/30/17 Unknown Wound Abcess - Aerobic & Anaerobic Swabs Wound Culture - Preliminary Staphylococcus aureus Laboratory Results 09/30/17 15:12: POC Glucose 249 H 09/30/17 15:15: ESR 49 H 09/30/17 17:31: POC Glucose 214 H 09/30/17 20:48: POC Glucose 193 H 10/01/17 00:30: Urine Color Yellow, Urine Clarity Clear, Urine pH 6.5, Ur Specific [place] 1.010, Urine Protein 15 H, Urine Glucose (UA) 250 H, Urine Ketones 5 H, Urine Occult Blood 50 H, Urine Nitrite Negative, Urine Bilirubin Negative, Urine Urobilinogen 4 H, Ur Leukocyte Esterase Negative, Urine RBC 0 SEEN, Urine WBC 0-5 SEEN, Ur Squamous Epith Cells 0-5 SEEN, Urine Bacteria 0 SEEN, Urine Mucus 0 SEEN 10/01/17 05:52: WBC 7.8, RBC 3.93 L, Hgb 11.8 L, Hct 35.3 L, MCV 89.8, MCH 30.0, MCHC 33.4, RDW 13.5, RDW Differential 43.5, Plt Count 129 L, MPV 10.0, Immature Gran % (Auto) 0.100, Neut % (Auto) 68.1, Lymph % (Auto) 13.2 L, [place] % (Auto) 17.9 H, Eos % (Auto) 0.4, Baso % (Auto) 0.3, Absolute Neuts (auto) 5.3, Absolute Lymphs (auto) 1.03, Total Counted Not Reportable 10/01/17 05:52: Sodium 136, Potassium 3.7, Chloride 105, Carbon Dioxide 23.0, Anion Gap 8, BUN 23 H, Creatinine 1.03, Estim Creat Clear Calc 78.18, Est GFR (MDRD) Af Amer 94, Est GFR (MDRD) Non-Af 77, BUN/Creatinine Ratio 22.3 H, Glucose 133 H, Calcium 8.2 L, Triglycerides 147, Cholesterol 81, LDL Cholesterol 37, VLDL Cholesterol 29, HDL Cholesterol 15 L 10/01/17 06:31: POC Glucose 135 H 10/01/17 07:53: POC Glucose 130 H 10/01/17 11:49: POC Glucose 212 H [facility] Admin: 10/01/17 07:57 Dose: 81 mg Atorvastatin Calcium (Lipitor) 20 mg PO QHS [facility] Last Admin: 09/30/17 21:00 Dose: 20 mg Dextrose (D50w Syringe) 0 gm IV X1 PRN; Protocol PRN Reason: Hypoglycemia Divalproex Sodium (Depakote Er) 2,000 mg PO QHS [facility] Gabapentin (Neurontin) 600 mg PO TIDCM [facility] Last Admin: 10/01/17 11:57 Dose: 600 mg Glucagon () 1 mg IM .X1 PRN PRN Reason: Hypoglycemia Hydrochlorothiazide (Hctz) 25 mg PO DAILY [facility] Last Admin: 09/30/17 17:28 Dose: Not Given Sodium Chloride () 1,000 mls @ 150 mls/hr IV .Q6H40M [facility] Last Admin: 10/01/17 14:09 Dose: 150 mls/hr Piperacillin Sod/Tazobactam Sod (Zosyn) 3.375 gm in 50 mls @ 12.5 mls/hr IV Q8 [facility] Last Admin: 10/01/17 14:09 Dose: 12.5 mls/hr Vancomycin HCl 1,500 mg/ (Sodium Chloride) 530 mls @ 250 mls/hr IV Q24H [facility] Last Admin: 10/01/17 10:45 Dose: 250 mls/hr Insulin Aspart (Novolog Flexpen (Bkc)) 0 units SC ACHS [facility] PRN Reason: Protocol Last Admin: 10/01/17 11:54 Dose: 2 units Insulin Aspart (Novolog Flexpen (Bkc)) 11 units SC DINNER [facility] Last Admin: 09/30/17 17:33 Dose: 11 units Insulin Aspart (Novolog Flexpen (Bkc)) 16 units SC BREAKFAST [facility] Last Admin: 10/01/17 07:59 Dose: 16 u Insulin Aspart (Novolog Flexpen (Bkc)) 10 units SC LUNCH [facility] Last Admin: 10/01/17 11:55 Dose: 10 units Insulin Detemir (Levemir (Bkc)) 50 units SC QHS [facility] Last Admin: 09/30/17 20:57 Dose: 50 u Lisinopril (Zestril) 20 mg PO BID [facility] Last Admin: 10/01/17 08:00 Dose: 20 mg Magnesium Hydroxide (Milk Of Magnesia) 30 ml PO DAILY PRN PRN PRN Reason: Constipation Metoprolol Tartrate (Lopressor (Beta Kely)) 25 mg PO BID [facility] Last Admin: 10/01/17 08:01 Dose: 25 mg Nicotine (Nicoderm Cq (Pbkc)) 21 mg TRANSDERM. DAILY [facility] Last Admin: 10/01/17 07:58 Dose: 21 mg Non-Formulary Medication (Quetiapine Fumarate) 3.5 tab PO QHS [facility] Nutritional Formula (Lactose Free) (Glucerna Shake) 120 ml PO 4X/DAY [facility] Last Admin: 10/01/17 14:05 Dose: Not Given Tbnce-2-Bpmb Ethyl Esters (Lovaza) 2 gm PO BID [facility] Last Admin: 10/01/17 07:58 Dose: 2 gm Ondansetron HCl (Zofran) 4 mg IV Q8H PRN PRN PRN Reason: Nausea Oxycodone HCl (Oxyir) 5 mg PO Q4H PRN PRN PRN Reason: Moderate Pain (pain scale 4-5) Last Admin: 10/01/17 01:35 Dose: 5 mg Prim[facility] (M[facility]) [facility] Last Admin: 10/01/17 07:57 Dose: 50 mg Psyllium Hydrophilic Mucilloid (Metamucil) 1 packet PO DAILY PRN PRN PRN Reason: CONSTIPATION Senna/Docusate Sodium (Senokot-S, Yusra-Colace) 2 tablet PO BID PRN PRN Reason: Constipation Sodium Chloride () 5 - 30 ml IV UD PRN PRN Reason: SALINE FLUSH Tamsulosin HCl (Flomax) 0.4 mg PO DAILY@0830 [facility] Last Admin: 10/01/17 07:57 Dose: 0.4 mg Assessment/Plan Active and Suspected Problems Falls (Acute) Type 2 diabetes mellitus (Acute) Sepsis (Acute) Acute kidney injury (Acute) Type 2 diabetes mellitus with diabetic polyneuropathy (Acute) Abscess of right foot (Acute) Charcot's joint of right foot (Acute) 61y/o male with PMHx of hypertension, Type 2 DM complicated by neuropathy, bipolar disorder who comes in with complaints of right leg swelling and falls 1. Sepsis secondary to Right foot and lower extremity swelling, secondary to diabetic foot infection, wound cultures growing staph aureus, concerning for osteomyelitis/abscess. Initial CT scan of the leg as well as foot x-ray did not show any discrete abscess, WBC has improved, on IV vancomycin and zosyn. Podiatry is planning on doing I & D tomorrow. 2. DM, type II complicated by peripheral neuropathy, with history of recurrent falls, HbA1c 7.3, blood sugars are fairly controlled, on reduced doses of home insulin regimen, will continue on same as well as Accu-Cheks and insulin sliding scale and gabapentin. 3. Hypertension, controlled, on metoprolol, hydrochlorothiazide and lisinopril, continue same and continue to monitor 4. Hyperlipidemia, on simvastatin 5. Bipolar disorder, on Seroquel and Depakote 6. Acute kidney injury likely related to current infection, improved on IV fluids 7. DVT prophylaxis on Lovenox subcu Code Visit Inpatient E&M: 12484 Subs Hosp L2
--- NOTE | 2017-10-01 14:52 | PN_ITS ---
Patient Problems: Active and Suspected Problems Falls (Acute) Type 2 diabetes mellitus (Acute) Sepsis (Acute) Acute kidney injury (Acute) Type 2 diabetes mellitus with diabetic polyneuropathy (Acute) Abscess of right foot (Acute) Charcot's joint of right foot (Acute) Subjective: Patient was seen and examined. Has no new complaints. Denies any fever or chills. Discussed with Dr. Faulkner, will be going for I&D tomorrow. Records from [place] and [facility] are still pending Objective: Physical Exam General: Alert, Oriented x3, Cooperative, No apparent distress HEENT: Atraumatic, PERRLA, EOMI, Normocephalic Oral: Moist Mucosa Neck: Supple Lungs: Clear to auscultation, Normal air movement Cardiovascular: Regular rate, Regular Rhythm, Normal S1, Normal S2, No murmurs Abdomen: Bowel Sounds Present, Soft, Non Tender, Non-Distended, No Hepato- splenomegaly Extremities: Edema - of the right foot with erythema extending over the lower leg. Prominent bulge of the right plantar surface with ecchymosis and erythema, Tenderness, - - Diminished pulses of the right foot Skin: No rashes, No breakdown Musculoskeletal: No Tenderness to Palpation of Joints or Extremities Lymphatic: No Cervical, Supraclavicular, or Inguinal Adenopathy Neurological: Cranial nerves II-XII grossly intact, Neuro grossly intact Psych/Mental Status: Normal Affect, Appropriate Vitals/I&O's: Vital Signs Temp Pulse Resp BP Pulse Ox 99.4 F H 71 18 149/80 H 97 10/01/17 14:04 10/01/17 14:04 10/01/17 14:04 10/01/17 14:04 10/01/17 14:04 Oxygen Delivery Method Room Air Weight: 81.4 kg Body Mass Index (BMI) 25.0 Intake and Output for Last 24 Hours 09/29/17 09/30/17 10/01/17 23:59 23:59 23:59 Intake Total 3322 / 3322 3307 / 3307 Output Total 1000 / 1000 1550 / 1550 Balance 2322 / 2322 1757 / 1757 Microbiology Past 72 Hours 09/30/17 Unknown Wound Abcess - Aerobic & Anaerobic Swabs Gram Stain - Final 09/30/17 Unknown Wound Abcess - Aerobic & Anaerobic Swabs Wound Culture - Preliminary Staphylococcus aureus Laboratory Results 09/30/17 15:12: POC Glucose 249 H 09/30/17 15:15: ESR 49 H 09/30/17 17:31: POC Glucose 214 H 09/30/17 20:48: POC Glucose 193 H 10/01/17 00:30: Urine Color Yellow, Urine Clarity Clear, Urine pH 6.5, Ur Specific [place] 1.010, Urine Protein 15 H, Urine Glucose (UA) 250 H, Urine Ketones 5 H, Urine Occult Blood 50 H, Urine Nitrite Negative, Urine Bilirubin Negative, Urine Urobilinogen 4 H, Ur Leukocyte Esterase Negative, Urine RBC 0 SEEN, Urine WBC 0-5 SEEN, Ur Squamous Epith Cells 0-5 SEEN, Urine Bacteria 0 SEEN, Urine Mucus 0 SEEN 10/01/17 05:52: WBC 7.8, RBC 3.93 L, Hgb 11.8 L, Hct 35.3 L, MCV 89.8, MCH 30.0 , MCHC 33.4, RDW 13.5, RDW Differential 43.5, Plt Count 129 L, MPV 10.0, Immature Gran % (Auto) 0.100, Neut % (Auto) 68.1, Lymph % (Auto) 13.2 L, [place] % (Auto) 17.9 H, Eos % (Auto) 0.4, Baso % (Auto) 0.3, Absolute Neuts (auto) 5.3, Absolute Lymphs (auto) 1.03, Total Counted Not Reportable 10/01/17 05:52: Sodium 136, Potassium 3.7, Chloride 105, Carbon Dioxide 23.0, Anion Gap 8, BUN 23 H, Creatinine 1.03, Estim Creat Clear Calc 78.18, Est GFR ( MDRD) Af Amer 94, Est GFR (MDRD) Non-Af 77, BUN/Creatinine Ratio 22.3 H, Glucose 133 H, Calcium 8.2 L, Triglycerides 147, Cholesterol 81, LDL Cholesterol 37, VLDL Cholesterol 29, HDL Cholesterol 15 L 10/01/17 06:31: POC Glucose 135 H 10/01/17 07:53: POC Glucose 130 H 10/01/17 11:49: POC Glucose 212 H Current [facility] Admin: 10/01/17 07:57 Dose: 81 mg Atorvastatin Calcium (Lipitor) 20 mg PO QHS [facility] Last Admin: 09/30/17 21:00 Dose: 20 mg Dextrose (D50w Syringe) 0 gm IV X1 PRN; Protocol PRN Reason: Hypoglycemia Divalproex Sodium (Depakote Er) 2,000 mg PO QHS [facility] Gabapentin (Neurontin) 600 mg PO TIDCM [facility] Last Admin: 10/01/17 11:57 Dose: 600 mg Glucagon () 1 mg IM .X1 PRN PRN Reason: Hypoglycemia Hydrochlorothiazide (Hctz) 25 mg PO DAILY [facility] Last Admin: 09/30/17 17:28 Dose: Not Given Sodium Chloride () 1,000 mls @ 150 mls/hr IV .Q6H40M [facility] Last Admin: 10/01/17 14:09 Dose: 150 mls/hr Piperacillin Sod/Tazobactam Sod (Zosyn) 3.375 gm in 50 mls @ 12.5 mls/hr IV Q8 [facility] Last Admin: 10/01/17 14:09 Dose: 12.5 mls/hr Vancomycin HCl 1,500 mg/ (Sodium Chloride) 530 mls @ 250 mls/hr IV Q24H [facility] Last Admin: 10/01/17 10:45 Dose: 250 mls/hr Insulin Aspart (Novolog Flexpen (Bkc)) 0 units SC ACHS [facility] PRN Reason: Protocol Last Admin: 10/01/17 11:54 Dose: 2 units Insulin Aspart (Novolog Flexpen (Bkc)) 11 units SC DINNER [facility] Last Admin: 09/30/17 17:33 Dose: 11 units Insulin Aspart (Novolog Flexpen (Bkc)) 16 units SC BREAKFAST [facility] Last Admin: 10/01/17 07:59 Dose: 16 u Insulin Aspart (Novolog Flexpen (Bkc)) 10 units SC LUNCH [facility] Last Admin: 10/01/17 11:55 Dose: 10 units Insulin Detemir (Levemir (Bkc)) 50 units SC QHS [facility] Last Admin: 09/30/17 20:57 Dose: 50 u Lisinopril (Zestril) 20 mg PO BID [facility] Last Admin: 10/01/17 08:00 Dose: 20 mg Magnesium Hydroxide (Milk Of Magnesia) 30 ml PO DAILY PRN PRN PRN Reason: Constipation Metoprolol Tartrate (Lopressor (Beta Kely)) 25 mg PO BID [facility] Last Admin: 10/01/17 08:01 Dose: 25 mg Nicotine (Nicoderm Cq (Pbkc)) 21 mg TRANSDERM. DAILY [facility] Last Admin: 10/01/17 07:58 Dose: 21 mg Non-Formulary Medication (Quetiapine Fumarate) 3.5 tab PO QHS [facility] Nutritional Formula (Lactose Free) (Glucerna Shake) 120 ml PO 4X/DAY [facility] Last Admin: 10/01/17 14:05 Dose: Not Given [id number] Ethyl Esters (Lovaza) 2 gm PO BID [facility] Last Admin: 10/01/17 07:58 Dose: 2 gm Ondansetron HCl (Zofran) 4 mg IV Q8H PRN PRN PRN Reason: Nausea Oxycodone HCl (Oxyir) 5 mg PO Q4H PRN PRN PRN Reason: Moderate Pain (pain scale 4-5) Last Admin: 10/01/17 01:35 Dose: 5 mg [facility]) [facility] Last Admin: 10/01/17 07:57 Dose: 50 mg Psyllium Hydrophilic Mucilloid (Metamucil) 1 packet PO DAILY PRN PRN PRN Reason: CONSTIPATION Senna/Docusate Sodium (Senokot-S, Yusra-Colace) 2 tablet PO BID PRN PRN Reason: Constipation Sodium Chloride () 5 - 30 ml IV UD PRN PRN Reason: SALINE FLUSH Tamsulosin HCl (Flomax) 0.4 mg PO DAILY@0830 [facility] Last Admin: 10/01/17 07:57 Dose: 0.4 mg Assessment/Plan Active and Suspected Problems Falls (Acute) Type 2 diabetes mellitus (Acute) Sepsis (Acute) Acute kidney injury (Acute) Type 2 diabetes mellitus with diabetic polyneuropathy (Acute) Abscess of right foot (Acute) Charcot's joint of right foot (Acute) 61y/o male with PMHx of hypertension, Type 2 DM complicated by neuropathy, bipolar disorder who comes in with complaints of right leg swelling and falls 1. Sepsis secondary to Right foot and lower extremity swelling, secondary to diabetic foot infection, wound cultures growing staph aureus, concerning for osteomyelitis/abscess. Initial CT scan of the leg as well as foot x-ray did not show any discrete abscess, WBC has improved, on IV vancomycin and zosyn. Podiatry is planning on doing I & D tomorrow. 2. DM, type II complicated by peripheral neuropathy, with history of recurrent falls, HbA1c 7.3, blood sugars are fairly controlled, on reduced doses of home insulin regimen, will continue on same as well as Accu-Cheks and insulin sliding scale and gabapentin. 3. Hypertension, controlled, on metoprolol, hydrochlorothiazide and lisinopril , continue same and continue to monitor 4. Hyperlipidemia, on simvastatin 5. Bipolar disorder, on Seroquel and Depakote 6. Acute kidney injury likely related to current infection, improved on IV fluids 7. DVT prophylaxis on Lovenox subcu Code Visit Inpatient E&M: 54001 Subs Hosp L2
--- NOTE | 2017-10-01 15:10 | CASEMGMT ---
RN DYLLAN called and left message with [facility]. Patient information left on confidential VM and requested return call to RN DYLLAN. CM will continue to follow this patient and offer case management services.
--- NOTE | 2017-10-01 15:17 | CASEMGMT ---
Social Work Note Again placed call to the pt's LG, Rober Houser, and had to leave a requesting a return phone call. SW to continue to follow and assist with discharge planning. ADELAIDE RomanW
--- NOTE | 2017-10-01 16:17 | NURSING ---
Pt off of floor to have surgery
--- NOTE | 2017-10-01 16:18 | CHAPLAIN ---
Type of Pastoral Visit _x__ Initial Visit ___ Follow-up Visit ___ On-call Visit ___ General Patient Visit ___ Spiritual Assessment ___ Family Conference ___ Bereavement ___ Rapid Response ___ Code Blue ___ Other (describe below) Pastoral Care Referral From _x__ Patient ___ Family ___ Nurse ___ Physician ___ Academic Records Specialist ___ Lead Android Developer ___ Other (describe below) Sacrament/Intervention _x__ Active listening ___ Anointing ___ Rastafarian ___ Bereavement ___ Communion ___ Teresa exploration ___ ___ Life review ___ Prayer ___ Reconciliation ___ Sacrament of Sick _x__ Supportive presence ___ Wedding ___ Other (describe below) Pastoral Comments patient speaks of and repeats that he is unhappy in his long term and that he has delusions; pt asks that his brother call him; I tell him that I will follow up with that request and see what we can do; during visit his phone rings and I show him how to use phone; he says that it is his brother; I leave room and go to explain my information to SW; EDGAR is aware of these details and has begun work toward some resolution
[2017-10-01 16:55] LABS: Bedside Glucose 173 mg/dL (70-110)
[2017-10-01] MEDS: Bupivacaine Mpf 0.5% 30 ML VIAL (18:56)
--- NOTE | 2017-10-01 19:10 | PCM.OPRPT ---
Report of Operation Date of Procedure: 10/01/17 Pre-Operative Diagnosis: Abscess with necrosis/nonviable tissue right foot Post-Operative Diagnosis: Same Surgery/Procedure Performed:: Incision, Drainage, and debridement right foot Description of Surgical Findings:: Abscess, with drainage, and necrosis consistent with infection right foot patcher helper: Dr. Lowe Type of Anesthesia:: Local MAC Specimen's removed: Deep culture of abscess right foot Estimated Blood Loss (mL): 30mL Description of Procedure: Indications: This is a 61 year old gentleman with history of poorly controlled diabetes who has developed cellulitis with abscess and nonviable necrotic tissue to the right foot. He has elevated temperature, and leukocytosis. ESR and CRP are elevated. Xrays and CT scan of the right foot were obtained and were negative for gas. He is on antibiotic therapy per Infectious Disease. The patient has significant sepsis with cellulitis, swelling, increased temperature, nonviable and necrotic tissue to the foot - due to the findings, the patient was brought to the operating room for incision, drainage, and debridement of the right foot. This was discussed with him as well as his power of senior attorney (his brother Rober over the phone) in great detail - reviewed the rationale of this with them, as well as all of the possible benefits vs risks/possible complications. They were advised the risks and potential complications include, but are not limited to pain, nonhealing, delayed healing, scarring, need for further surgery, need for further procedures, worsening infection, charcot neuroarthropathy, bleeding, complex regional pain syndrome, numbness, swelling, fracture, deformity, problems walking, problems with shoes, weakness, loss of strength, loss of limb, loss of life. They were able to repeat these back. The consent form was reviewed with them, and it was freely signed. All of their questions were answered. No guarantees were given. Also of note he was not able to get an MRI due to hardware, surgical clips in hip area. Operative Procedure: The patient was brought back to the operating room and was placed on the operating room table in the supine position. He was carefully secured to the operating room table with a safely belt around his waist. The patient received MAC anesthesia and after the hindfoot/ankle were cleansed with 70% isopropyl alcohol a right ankle nerve block was completed using a total of 20% of 0.5% Bupivacaine plain. A well padded pneumatic tourniquet was placed around the patient's right ankle. The patient's right foot was scrubbed, prepped, draped in the usual aseptic fashion. A timeout was performed and the patient was proper identified and the surgical plan was confirmed. Further attention was directed to the patient's right foot. There was noted to be significant cellulitis with swelling and skin was very taut consistent with abscess formation to the dorsal forefoot, there was noted to be cellulitis, with swelling, drainage, open ulceration, necrosis and nonviable tissue to the medial and plantar forefoot extending to the midfoot, the skin was also very taut consistent with abscess formation. There was also some soft tissue crepitus to the abscess site. At this time using a 15 scalpel blade an incision was made to the plantar medial forefoot extending to the plantar medial midfoot, also incisions were also made to dorsal foot, one overlying the medial 2nd metatarsal space and the other lateral 3rd metatarsal space. There was immediate expression of dish water drainage from the incision site. There was noted to be some purulence from the plantar medial incision site distally. There was also significant bleeding, therefore the foot was elevated for exsanguination and the right ankle pneumatic tourniquet was inflated for hemostasis and to control the bleeding. The sites were explored with a hemostat breaking up the loculations of the abscess. The abscess was completely drained. The medial plantar flexor tendons were visualized and were noted to be intact and viable. The nonviable necrotic tissue to the medial and plantar medial foot was debrided away using a 15 scalpel blade, this tissue involved the epidermal and dermal layer. A culture was obtained of the abscess and was sent to pathology for further evaluation. The site was flushed out with copious amounts of normal saline solution. The surgical site applied healthy and viable at this time. Also of note, there was no probe to bone and does not appear bone is involved with infection at this time. The site was packed with 1/4 inch Iodoform gauze packing. A dressing was applied which consisted of 4x4 gauze, kerlix, abd pads, and gallito bandages. The pneumatic tourniquet was deflated and there was immediate return of warmth and perfusion to the foot, with CFT < 2 seconds to all toes and more temperature present. The patient tolerated the procedure well and the anesthesia well with no complications. He was transported to the recovery room with vital signs stable and in good condition. Post operative orders were placed. No weightbearing right foot, keep right foot elevated. Keep dressing clean, dry, and intact. He is to continue with antibiotic therapy per Infectious Disease and medical management per the medicine team. He will continued to be followed as an inpatient. Per patient request, I did review the details of the procedure with patient's power of senior attorney (his brother Rober). Grafts/Implants Used: None - Complications None
--- NOTE | 2017-10-01 19:13 | OP.PCM_ITS ---
Report of Operation Date of Procedure: 10/01/17 Pre-Operative Diagnosis: Abscess with necrosis/nonviable tissue right foot Post-Operative Diagnosis: Same Surgery/Procedure Performed:: Incision, Drainage, and debridement right foot Description of Surgical Findings:: Abscess, with drainage, and necrosis consistent with infection right foot driver supervisor: Dr. Lowe Type of Anesthesia:: Local MAC Specimen's removed: Deep culture of abscess right foot Estimated Blood Loss (mL): 30mL Description of Procedure: Indications: This is a 61 year old gentleman with history of poorly controlled diabetes who has developed cellulitis with abscess and nonviable necrotic tissue to the right foot. He has elevated temperature, and leukocytosis. ESR and CRP are elevated. Xrays and CT scan of the right foot were obtained and were negative for gas. He is on antibiotic therapy per Infectious Disease. The patient has significant sepsis with cellulitis, swelling, increased temperature , nonviable and necrotic tissue to the foot - due to the findings, the patient was brought to the operating room for incision, drainage, and debridement of the right foot. This was discussed with him as well as his power of real estate attorney ( his brother Rober over the phone) in great detail - reviewed the rationale of this with them, as well as all of the possible benefits vs risks/possible complications. They were advised the risks and potential complications include, but are not limited to pain, nonhealing, delayed healing, scarring, need for further surgery, need for further procedures, worsening infection, charcot neuroarthropathy, bleeding, complex regional pain syndrome, numbness, swelling, fracture, deformity, problems walking, problems with shoes, weakness, loss of strength, loss of limb, loss of life. They were able to repeat these back. The consent form was reviewed with them, and it was freely signed. All of their questions were answered. No guarantees were given. Also of note he was not able to get an MRI due to hardware, surgical clips in hip area. Operative Procedure: The patient was brought back to the operating room and was placed on the operating room table in the supine position. He was carefully secured to the operating room table with a safely belt around his waist. The patient received MAC anesthesia and after the hindfoot/ankle were cleansed with 70% isopropyl alcohol a right ankle nerve block was completed using a total of 20% of 0.5% Bupivacaine plain. A well padded pneumatic tourniquet was placed around the patient's right ankle. The patient's right foot was scrubbed, prepped , draped in the usual aseptic fashion. A timeout was performed and the patient was proper identified and the surgical plan was confirmed. Further attention was directed to the patient's right foot. There was noted to be significant cellulitis with swelling and skin was very taut consistent with abscess formation to the dorsal forefoot, there was noted to be cellulitis, with swelling, drainage, open ulceration, necrosis and nonviable tissue to the medial and plantar forefoot extending to the midfoot, the skin was also very taut consistent with abscess formation. There was also some soft tissue crepitus to the abscess site. At this time using a 15 scalpel blade an incision was made to the plantar medial forefoot extending to the plantar medial midfoot , also incisions were also made to dorsal foot, one overlying the medial 2nd metatarsal space and the other lateral 3rd metatarsal space. There was immediate expression of dish water drainage from the incision site. There was noted to be some purulence from the plantar medial incision site distally. There was also significant bleeding, therefore the foot was elevated for exsanguination and the right ankle pneumatic tourniquet was inflated for hemostasis and to control the bleeding. The sites were explored with a hemostat breaking up the loculations of the abscess. The abscess was completely drained. The medial plantar flexor tendons were visualized and were noted to be intact and viable. The nonviable necrotic tissue to the medial and plantar medial foot was debrided away using a 15 scalpel blade, this tissue involved the epidermal and dermal layer. A culture was obtained of the abscess and was sent to pathology for further evaluation. The site was flushed out with copious amounts of normal saline solution. The surgical site applied healthy and viable at this time. Also of note, there was no probe to bone and does not appear bone is involved with infection at this time. The site was packed with 1/4 inch Iodoform gauze packing. A dressing was applied which consisted of 4x4 gauze, kerlix, abd pads, and gallito bandages. The pneumatic tourniquet was deflated and there was immediate return of warmth and perfusion to the foot, with CFT < 2 seconds to all toes and more temperature present. The patient tolerated the procedure well and the anesthesia well with no complications. He was transported to the recovery room with vital signs stable and in good condition. Post operative orders were placed. No weightbearing right foot, keep right foot elevated. Keep dressing clean, dry, and intact. He is to continue with antibiotic therapy per Infectious Disease and medical management per the medicine team. He will continued to be followed as an inpatient. Per patient request, I did review the details of the procedure with patient's power of real estate attorney (his brother Rober). Grafts/Implants Used: None - Complications None
[2017-10-01] MEDS: Atorvastatin Calcium 20 MG Tablet PO (21:52)
[2017-10-01] MEDS: Divalproex (ER) 500 MG Tablet 2000 MG PO (22:43)
[2017-10-01 22:46] LABS: Bedside Glucose 250 mg/dL (70-110)
[2017-10-02] VITALS (16 sets, daily range): BP systolic 146–173; BP diastolic 79–85; PULSE 69–94; RESP 16–38; TEMP 36.8–37.3; O2SAT 92–99
[2017-10-02] MEDS: 0.9% Normal Saline 1,000 ML 150 ML IV (02:30)
[2017-10-02] MEDS: oxyCODONE 5 MG Tablet PO ×4 (02:40→18:13)
[2017-10-02] MEDS: Piperacil/Tazobactam 3.375 GM/50 ML ML IV ×2 (05:41→13:30)
[2017-10-02 07:09] LABS: Absolute Lymphocyte Count 0.94 X10^3/ul (0.83-4.51); Absolute Neutrophil Count 6.8 X10^3/uL (2.0-7.7); Basophil# 0.01 X10^3/uL; Basophil% 0.1 % (0-1); Eosinophil# 0.02 X10^3/uL; Eosinophils% 0.2 % (0-5); Hematocrit 34.6 % (40-54); Hemoglobin 11.8 g/dl (13.0-16.5); Lymphocyte # 0.94 X10^3/ul (4.0); Lymphocyte % 10.1 % (19-41); Mean Corp Hgb Conc 34.1 g/gl (32-36); Mean Corpuscular Hgb 30.3 pg (27.0-32.0); Mean Corpuscular Volume 88.7 fL (80-94); Mean Platelet Vol. 10.1 fl (6.2-12.0); Monocyte# 1.55 X10^3/uL; Monocyte% 16.6 % (0-10); Neutrophil # 6.77 X10^3/uL (2.7-7.7); Neutrophil % 72.8 % (47-70); Platelet Count 136 K/mm3 (150-450); RBC Distribution Width CV 13.2 % (11.6-14.6); RBC Distribution Width SD 41.9 fl (35.1-43.9); White Blood Count 9.3 K/mm3 (4.4-11.0)
[2017-10-02 07:11] LABS: Differential Indicated SCAN CRITERIA MET; POSITIVE COUNT NO; POSITIVE DIFFERENTIAL YES; POSITIVE MORPHOLOGY NO
[2017-10-02 07:14] LABS: Anion Gap 10 (5-15); BUN 16 mg/dL (7-18); BUN/Creat Ratio 17.6 RATIO (10-20); Calcium,Total 8.1 mg/dL (8.5-10.1); Chloride 104 mmol/L (98-107); Creatinine, Serum 0.91 mg/dL (0.70-1.30); EST Glomerular Filtration Rate 89 mL/min (>60); Est Glom Filt Rate - Afr Amer 108 mL/min (>60); Estimated Creatinine Clearance 88.49 ml/min; Glucose 152 mg/dL (70-110); Sodium Level 135 mmol/L (136-145)
[2017-10-02 07:56] LABS: Bedside Glucose 159 mg/dL (70-110)
[2017-10-02] MEDS: Gabapentin 600 MG Tablet PO ×3 (08:21→18:04)
[2017-10-02] MEDS: Aspirin 81 MG TAB.CHEW PO (08:21)
[2017-10-02] MEDS: Primidone 50 MG Tablet PO ×2 (08:22→18:03)
[2017-10-02] MEDS: Psyllium 1 PACKET PO (08:26)
[2017-10-02] MEDS: Tamsulosin HCl 0.4 MG Capsule PO (08:36)
[2017-10-02] MEDS: Omega-3 Acid Ethyl Esters 1 GM Capsule 2 GM PO ×2 (08:37→22:16)
[2017-10-02] MEDS: Metoprolol Tartrate 25 MG Tablet PO ×2 (08:37→22:16)
[2017-10-02] MEDS: Glucerna Shake 120 ML LIQUID PO ×4 (08:44→22:17)
--- NOTE | 2017-10-02 08:46 | NURSING ---
This nurse applied oxygen at 2L NC b/c pt complaining of SOB and respirations 34min. Dr. Jones was paged by this nurse and informed of that. She was going to order Aero;'s. This nurse asked if we needed to decrease IVF rate as its going at 150ml/hr. Dr. Jones said she would look at his EMAR.
[2017-10-02] MEDS: Lisinopril 20 MG Tablet PO ×2 (08:48→22:17)
--- NOTE | 2017-10-02 09:09 | CASEMGMT ---
Social Work Note Placed call to pt's guardian, Rober Houser, again and left requesting a return phone call. Placed call to ELENI Dalton , ([phone]) and confirmed that contact numbers we have for Rober are correct. Will continue to follow and assist with discharge planning. Unable to send referrals to SNFs without permission of guardian. ADELAIDE Roman INFORMATION TECHNOLOGY CONSULTANT
[2017-10-02] MEDS: Ipratropium/Albuterol Sulfate 3 ML AMPUL.NEB INHALATION ×3 (09:15→19:20)
[2017-10-02] MEDS: 0.9% Normal Saline 1,000 ML 75 ML IV (10:23)
--- NOTE | 2017-10-02 11:06 | CASEMGMT ---
Social Work Note Face to face with the pt who appears very drowsy during time in room. Introduced self and role at [facility]. Discuss with pt that he may need jail facility placement at discharge for additional therapy and care. Pt states he does not have a preference of placement. Inquire if he has additional numbers for his brother and he denies. SW to continue to follow and assist with discharge planning. Mariela Fairbanks, ELECTRICAL MECHANICAL TECHNICIAN BUFFER IN[employer]ATED PAD
--- NOTE | 2017-10-02 11:53 | CASEMGMT ---
Social Work Note Son, called, and states that [place] SW was working on placement. Explain that this SW would have to work on his discharge plan from this hospital and that currently the therapists and physician were anticipating the pt needing placement. Rober is in agreement and states that he would prefer his brother be placed out towards him in [place]. Denies preference of facility. Inquire how long the pt would be there and inform that it would depend on his progress, but that an average stay is approximately 2 weeks. No further questions at this time. Faxed initial referrals to [facility] P: [phone] F: [phone], and to [facility] P: [phone] F: [phone]. Call from Myesha at [facility]. According to Myesha they do not have any beds available, but recommends their [place] and [place] facilities. Faxed additional referral to [facility] P: [phone] F: [phone]. ADELAIDE Roman
[2017-10-02 12:36] LABS: Bedside Glucose 111 mg/dL (70-110)
--- NOTE | 2017-10-02 13:28 | CASEMGMT ---
Social Work Note Call from Lizzy at [facility] with additional questions. States she will review with her DON and get back to regarding if the are able to accept. Placed call to [facility] and spoke with Roselia. States she will review with her trust administrator and get back to shortly. Faxed additional referal to [facility] P: [phone] F: [phone]. ADELAIDE RomanW
--- NOTE | 2017-10-02 14:35 | CASEMGMT ---
Social Work Note Placed call to Lizzy at [facility] and left a vm requesting a return phone call. Placed call to Roselia at [facility] and left vm requesting a return phone call. Placed call to Jake at [facility] and they are reviewing. Call back from Lizzy stating that they are not able to accept d/t to the pt's drug history. Faxed additional referral to [facility] in [place]. P: [phone] F: [phone]. Left vm for sales service coordinator, Courtney Waters. ADELAIDE Roman BLUEPRINTER
--- NOTE | 2017-10-02 14:59 | CASEMGMT ---
Social Work Note Faxed referral to [facility] P: [phone] F: [phone]. Left vm with admissions office. ADELAIDE Roman ICU SPECIALIST
--- NOTE | 2017-10-02 15:32 | CASEMGMT ---
Addendum entered by Mariela Fairbanks 10/02/17 15:54: Social Work Note Call from Courtney franks, and from Roselia franks. Call back from [facility] stating they are very interested, but want to do an on-site on Thursday. Pt will be here through the weekend. ADELAIDE Roman Original Note: Social Work Note Call from Mitchell at [facility] stating that they should be able to accept the pt as long as he is a skilled stay and will not be [place] [facility]. Inform that the pt is from a halfway and according to his guardian the plan will be to return there. Central intake is reviewing to ensure benefits, but [facility] will call SW once they have been verified to confirm that they can accept. SW to continue to follow and assist with discharge planning. ADELAIDE Roman
--- NOTE | 2017-10-02 16:23 | PN.ID_ITS ---
Patient Problems: Active and Suspected Problems Falls (Acute) Type 2 diabetes mellitus (Acute) Sepsis (Acute) Acute kidney injury (Acute) Type 2 diabetes mellitus with diabetic polyneuropathy (Acute) Abscess of right foot (Acute) Charcot's joint of right foot (Acute) Subjective: Feeling better, R foot sore, no fever, no n/v/d. - Physical Exam General: Alert, Cooperative, No apparent distress Lungs: Clear to auscultation, Normal air movement Cardiovascular: Regular rate, Regular Rhythm Abdomen: Soft, Non Tender, Non-Distended Skin: Incision - R foot wrapped Vital Signs Temp Pulse Resp BP Pulse Ox 98.3 F 89 19 H 146/84 H 99 10/02/17 10:24 10/02/17 13:18 10/02/17 13:18 10/02/17 10:24 10/02/17 10:24 Oxygen Flow Rate 2 Oxygen Delivery Method Nasal Cannula Weight: 81.4 kg Body Mass Index (BMI) 25.0 Intake and Output for Last 24 Hours 09/30/17 10/01/17 10/02/17 23:59 23:59 23:59 Intake Total 3322 / 3322 4507 / 4507 3771 / 3771 Output Total 1000 / 1000 1550 / 1550 300 / 300 Balance 2322 / 2322 2957 / 2957 3471 / 3471 Microbiology Past 72 Hours 09/30/17 Unknown Gram Stain - Final Wound Abcess - Aerobic & Anaerobic Swabs Wound Culture - Final Staphylococcus aureus Anaerobic Culture - Preliminary No growth in 48 hours. 09/30/17 09:26 Blood Culture - Preliminary Blood Culture (Wb) - Left Hand No growth in 48 hours. 10/01/17 Unknown Gram Stain - Final Wound - Aerobic & Anaerobic Swabs Wound Culture - Preliminary Gram positive organism Laboratory Tests Past 24 Hrs 10/02/17 10/02/17 06:36 06:36 WBC 9.3 RBC 3.90 L Hgb 11.8 L Hct 34.6 L MCV 88.7 MCH 30.3 MCHC 34.1 RDW 13.2 RDW Differential 41.9 Plt Count 136 L MPV 10.1 Immature Gran % (Auto) 0.200 Neut % (Auto) 72.8 H Lymph % (Auto) 10.1 L [place] % (Auto) 16.6 H Eos % (Auto) 0.2 Baso % (Auto) 0.1 Absolute Neuts (auto) 6.8 Absolute Lymphs (auto) 0.94 Total Counted Not Reportable Sodium 135 L Potassium 4.0 Chloride 104 Carbon Dioxide 21.0 Anion Gap 10 BUN 16 Creatinine 0.91 Estim Creat Clear Calc 88.49 Est GFR (MDRD) Af Amer 108 Est GFR (MDRD) Non-Af 89 BUN/Creatinine Ratio 17.6 Glucose 152 H Calcium 8.1 L POC Glucose 10/02/17 10/02/17 10/01/17 12:26 07:53 22:36 POC Glucose 111 H 159 H 250 H 10/01/17 16:48 POC Glucose 173 H Route of nutrition/ use of supplements: [] Nutritional Intake: [] IV Site: [] Hart Catheter: [] - Assessment/Plan Antibiotics: [] Assessment/Plan: [] Active and Suspected Problems Falls (Acute) Diabetic foot infection (Acute) Type 2 diabetes mellitus (Acute) Sepsis (Acute) Acute kidney injury (Acute) Severe sepsis (leukocytosis, tachycardia, elevated lactate, GEMA) due to DM R foot abscess with MSSA - Much improved. Now s/p OR 10/[address] Marsh. No bone involvement seen. Cx with MSSA. Surg cx with GPC. Will narrow vanc/ zosyn to unasyn. Plan on d/c on po abx, potentially augmentin and doxy for 2 week course. will follow
--- NOTE | 2017-10-02 17:34 | PCM.PROGNOTE ---
Patient Problems: Active and Suspected Problems Falls (Acute) Type 2 diabetes mellitus (Acute) Sepsis (Acute) Acute kidney injury (Acute) Type 2 diabetes mellitus with diabetic polyneuropathy (Acute) Abscess of right foot (Acute) Charcot's joint of right foot (Acute) Subjective: Patient seen for follow up on right foot, s/p I+D on 10/01/17. Patient resting in bed, no complaints. - Physical Exam General: Alert, Oriented x3, Cooperative, No apparent distress Extremities: Capillary Refill Less than 3 Seconds, No Calf Tenderness, - - s/p I+D to the right foot, 3 incisions - there is residual cellulitis which is improving and less red, there is less swelling, he does not relate to pain, there is no maloder, no visible abscess, no purulence, no drainage at this time, bleeding controlled, the areas of debridement appear be healing at this time. Vital Signs Temp Pulse Resp BP Pulse Ox 98.3 F 83 19 H 146/84 H 99 10/02/17 10:24 10/02/17 14:05 10/02/17 13:18 10/02/17 10:24 10/02/17 10:24 Oxygen Flow Rate 2 Oxygen Delivery Method Nasal Cannula Weight: 81.4 kg Body Mass Index (BMI) 25.0 Intake and Output for Last 24 Hours 09/30/17 10/01/17 10/02/17 23:59 23:59 23:59 Intake Total 3322 / 3322 4507 / 4507 3771 / 3771 Output Total 1000 / 1000 1550 / 1550 300 / 300 Balance 2322 / 2322 2957 / 2957 3471 / 3471 Microbiology Past 72 Hours 09/30/17 Unknown Gram Stain - Final Wound Abcess - Aerobic & Anaerobic Swabs Wound Culture - Final Staphylococcus aureus Anaerobic Culture - Preliminary No growth in 48 hours. 09/30/17 09:26 Blood Culture - Preliminary Blood Culture (Wb) - Left Hand No growth in 48 hours. 10/01/17 Unknown Gram Stain - Final Wound - Aerobic & Anaerobic Swabs Wound Culture - Preliminary Gram positive organism Laboratory Tests Past 24 Hrs 10/02/17 10/02/17 06:36 06:36 WBC 9.3 RBC 3.90 L Hgb 11.8 L Hct 34.6 L MCV 88.7 MCH 30.3 MCHC 34.1 RDW 13.2 RDW Differential 41.9 Plt Count 136 L MPV 10.1 Immature Gran % (Auto) 0.200 Neut % (Auto) 72.8 H Lymph % (Auto) 10.1 L [place] % (Auto) 16.6 H Eos % (Auto) 0.2 Baso % (Auto) 0.1 Absolute Neuts (auto) 6.8 Absolute Lymphs (auto) 0.94 Total Counted Not Reportable Sodium 135 L Potassium 4.0 Chloride 104 Carbon Dioxide 21.0 Anion Gap 10 BUN 16 Creatinine 0.91 Estim Creat Clear Calc 88.49 Est GFR (MDRD) Af Amer 108 Est GFR (MDRD) Non-Af 89 BUN/Creatinine Ratio 17.6 Glucose 152 H Calcium 8.1 L POC Glucose 10/02/17 10/02/17 10/01/17 12:26 07:53 22:36 POC Glucose 111 H 159 H 250 H Assessment/Plan Active and Suspected Problems Falls (Acute) Type 2 diabetes mellitus (Acute) Sepsis (Acute) Acute kidney injury (Acute) Type 2 diabetes mellitus with diabetic polyneuropathy (Acute) Abscess of right foot (Acute) Charcot's joint of right foot (Acute) Cellulitis, abscess right foot s/p I+D on 10/01/17 Clinically improvement noted to foot with antibiotic therapy and I+D procedure. No fever, no leukocytosis. Surgical culture with GPC, previous culture grew MSSA; patient on Unasyn by Infectious Disease. Reviewed ERNESTINE results from yesterday, appears to have normal ABIs but abnormal TBI to right foot consistent with small vessel disease - recommend vascular surgery consult. Changed dressing. Applied wet to dry dressing consisting of normal saline solution and overlying gauze, kerlix, abd pad and gallito bandage. Keep clean, dry, and intact. No weightbearing right foot. Keep right foot elevated. Will continue to follow
--- NOTE | 2017-10-02 17:42 | PN_ITS ---
Patient Problems: Active and Suspected Problems Falls (Acute) Type 2 diabetes mellitus (Acute) Sepsis (Acute) Acute kidney injury (Acute) Type 2 diabetes mellitus with diabetic polyneuropathy (Acute) Abscess of right foot (Acute) Charcot's joint of right foot (Acute) Subjective: Patient seen for follow up on right foot, s/p I+D on 10/01/17. Patient resting in bed, no complaints. - Physical Exam General: Alert, Oriented x3, Cooperative, No apparent distress Extremities: Capillary Refill Less than 3 Seconds, No Calf Tenderness, - - s/p I +D to the right foot, 3 incisions - there is residual cellulitis which is improving and less red, there is less swelling, he does not relate to pain, there is no maloder, no visible abscess, no purulence, no drainage at this time , bleeding controlled, the areas of debridement appear be healing at this time. Vital Signs Temp Pulse Resp BP Pulse Ox 98.3 F 83 19 H 146/84 H 99 10/02/17 10:24 10/02/17 14:05 10/02/17 13:18 10/02/17 10:24 10/02/17 10:24 Oxygen Flow Rate 2 Oxygen Delivery Method Nasal Cannula Weight: 81.4 kg Body Mass Index (BMI) 25.0 Intake and Output for Last 24 Hours 09/30/17 10/01/17 10/02/17 23:59 23:59 23:59 Intake Total 3322 / 3322 4507 / 4507 3771 / 3771 Output Total 1000 / 1000 1550 / 1550 300 / 300 Balance 2322 / 2322 2957 / 2957 3471 / 3471 Microbiology Past 72 Hours 09/30/17 Unknown Gram Stain - Final Wound Abcess - Aerobic & Anaerobic Swabs Wound Culture - Final Staphylococcus aureus Anaerobic Culture - Preliminary No growth in 48 hours. 09/30/17 09:26 Blood Culture - Preliminary Blood Culture (Wb) - Left Hand No growth in 48 hours. 10/01/17 Unknown Gram Stain - Final Wound - Aerobic & Anaerobic Swabs Wound Culture - Preliminary Gram positive organism Laboratory Tests Past 24 Hrs 10/02/17 10/02/17 06:36 06:36 WBC 9.3 RBC 3.90 L Hgb 11.8 L Hct 34.6 L MCV 88.7 MCH 30.3 MCHC 34.1 RDW 13.2 RDW Differential 41.9 Plt Count 136 L MPV 10.1 Immature Gran % (Auto) 0.200 Neut % (Auto) 72.8 H Lymph % (Auto) 10.1 L [place] % (Auto) 16.6 H Eos % (Auto) 0.2 Baso % (Auto) 0.1 Absolute Neuts (auto) 6.8 Absolute Lymphs (auto) 0.94 Total Counted Not Reportable Sodium 135 L Potassium 4.0 Chloride 104 Carbon Dioxide 21.0 Anion Gap 10 BUN 16 Creatinine 0.91 Estim Creat Clear Calc 88.49 Est GFR (MDRD) Af Amer 108 Est GFR (MDRD) Non-Af 89 BUN/Creatinine Ratio 17.6 Glucose 152 H Calcium 8.1 L POC Glucose 10/02/17 10/02/17 10/01/17 12:26 07:53 22:36 POC Glucose 111 H 159 H 250 H Assessment/Plan Active and Suspected Problems Falls (Acute) Type 2 diabetes mellitus (Acute) Sepsis (Acute) Acute kidney injury (Acute) Type 2 diabetes mellitus with diabetic polyneuropathy (Acute) Abscess of right foot (Acute) Charcot's joint of right foot (Acute) Cellulitis, abscess right foot s/p I+D on 10/01/17 Clinically improvement noted to foot with antibiotic therapy and I+D procedure. No fever, no leukocytosis. Surgical culture with GPC, previous culture grew MSSA ; patient on Unasyn by Infectious Disease. Reviewed ERNESTINE results from yesterday, appears to have normal ABIs but abnormal TBI to right foot consistent with small vessel disease - recommend vascular surgery consult. Changed dressing. Applied wet to dry dressing consisting of normal saline solution and overlying gauze, kerlix, abd pad and gallito bandage. Keep clean, dry, and intact. No weightbearing right foot. Keep right foot elevated. Will continue to follow
[2017-10-02 18:16] LABS: Bedside Glucose 209 mg/dL (70-110)
--- NOTE | 2017-10-02 18:31 | PN_ITS ---
Patient Problems: Active and Suspected Problems Falls (Acute) Type 2 diabetes mellitus (Acute) Sepsis (Acute) Acute kidney injury (Acute) Type 2 diabetes mellitus with diabetic polyneuropathy (Acute) Abscess of right foot (Acute) Charcot's joint of right foot (Acute) Subjective: Patient was seen and examined. No new complaints. Had surgery done yesterday. Wound cultures are growing staph aureus Objective: Physical Exam General: Alert, Oriented x3, Cooperative, No apparent distress HEENT: Atraumatic, PERRLA, EOMI, Normocephalic Oral: Moist Mucosa Neck: Supple Lungs: Clear to auscultation, Normal air movement Cardiovascular: Regular rate, Regular Rhythm, Normal S1, Normal S2, No murmurs Abdomen: Bowel Sounds Present, Soft, Non Tender, Non-Distended, No Hepato- splenomegaly Extremities: Edema - of the right foot with erythema extending over the lower leg. Prominent bulge of the right plantar surface with ecchymosis and erythema, Tenderness, - - Diminished pulses of the right foot Skin: No rashes, No breakdown Musculoskeletal: No Tenderness to Palpation of Joints or Extremities Lymphatic: No Cervical, Supraclavicular, or Inguinal Adenopathy Neurological: Cranial nerves II-XII grossly intact, Neuro grossly intact Psych/Mental Status: Normal Affect, Appropriate Vitals/I&O's: Vital Signs Temp Pulse Resp BP Pulse Ox 98.3 F 83 19 H 146/84 H 99 10/02/17 10:24 10/02/17 14:05 10/02/17 13:18 10/02/17 10:24 10/02/17 10:24 Oxygen Flow Rate 2 Oxygen Delivery Method Nasal Cannula Weight: 81.4 kg Body Mass Index (BMI) 25.0 Intake and Output for Last 24 Hours 09/30/17 10/01/17 10/02/17 23:59 23:59 23:59 Intake Total 3322 / 3322 4507 / 4507 4263 / 4263 Output Total 1000 / 1000 1550 / 1550 300 / 300 Balance 2322 / 2322 2957 / 2957 3963 / 3963 Microbiology Past 72 Hours 09/30/17 Unknown Wound Abcess - Aerobic & Anaerobic Swabs Gram Stain - Final 09/30/17 Unknown Wound Abcess - Aerobic & Anaerobic Swabs Wound Culture - Final Staphylococcus aureus 09/30/17 Unknown Wound Abcess - Aerobic & Anaerobic Swabs Anaerobic Culture - Preliminary No growth in 48 hours. 09/30/17 09:26 Blood Culture (Wb) - Left Hand Blood Culture - Preliminary No growth in 48 hours. 10/01/17 Unknown Wound - Aerobic & Anaerobic Swabs Gram Stain - Final 10/01/17 Unknown Wound - Aerobic & Anaerobic Swabs Wound Culture - Preliminary Gram positive organism Laboratory Results 10/01/17 22:36: POC Glucose 250 H 10/02/17 06:36: WBC 9.3, RBC 3.90 L, Hgb 11.8 L, Hct 34.6 L, MCV 88.7, MCH 30.3 , MCHC 34.1, RDW 13.2, RDW Differential 41.9, Plt Count 136 L, MPV 10.1, Immature Gran % (Auto) 0.200, Neut % (Auto) 72.8 H, Lymph % (Auto) 10.1 L, [place] % (Auto) 16.6 H, Eos % (Auto) 0.2, Baso % (Auto) 0.1, Absolute Neuts (auto) 6.8 , Absolute Lymphs (auto) 0.94, Total Counted Not Reportable 10/02/17 06:36: Sodium 135 L, Potassium 4.0, Chloride 104, Carbon Dioxide 21.0, Anion Gap 10, BUN 16, Creatinine 0.91, Estim Creat Clear Calc 88.49, Est GFR ( MDRD) Af Amer 108, Est GFR (MDRD) Non-Af 89, BUN/Creatinine Ratio 17.6, Glucose 152 H, Calcium 8.1 L 10/02/17 07:53: POC Glucose 159 H 10/02/17 12:26: POC Glucose 111 H 10/02/17 17:55: POC Glucose 209 H Current Medications Albuterol/Ipratropium (Duoneb) 3 ml INHALATION Q4HWA.RT [facility] Last Admin: 10/02/17 13:00 Dose: 3 ml Aspirin (Aspirin, Baby) 81 mg PO DAILYCM [facility] Last Admin: 10/02/17 08:21 Dose: 81 mg Atorvastatin Calcium (Lipitor) 20 mg PO QHS [facility] Last Admin: 10/01/17 21:52 Dose: 20 mg Cholecalciferol (Vitamin D) 3,000 unit PO DAILY [facility] Dextrose (D50w Syringe) 0 gm IV X1 PRN; Protocol PRN Reason: Hypoglycemia Divalproex Sodium (Depakote Er) 2,000 mg PO QHS [facility] Last Admin: 10/01/17 22:43 Dose: 2,000 mg Gabapentin (Neurontin) 600 mg PO TIDCM [facility] Last Admin: 10/02/17 18:04 Dose: 600 mg Glucagon () 1 mg IM .X1 PRN PRN Reason: Hypoglycemia Hydrochlorothiazide (Hctz) 25 mg PO DAILY [facility] Last Admin: 09/30/17 17:28 Dose: Not Given Ampicillin Sodium/Sulbactam (Sodium 3 gm/ Sodium Chloride) 112 mls @ 150 mls/ hr IV Q8 [facility] Insulin Aspart (Novolog Flexpen (Bkc)) 0 units SC ACHS [facility] PRN Reason: Protocol Last Admin: 10/02/17 18:02 Dose: 1 units Insulin Aspart (Novolog Flexpen (Bkc)) 11 units SC DINNER [facility] Last Admin: 10/02/17 18:03 Dose: 11 units Insulin Aspart (Novolog Flexpen (Bkc)) 16 units SC BREAKFAST [facility] Last Admin: 10/02/17 08:23 Dose: 16 u Insulin Aspart (Novolog Flexpen (Bkc)) 10 units SC LUNCH [facility] Last Admin: 10/02/17 12:30 Dose: Not Given Insulin Detemir (Levemir (Bkc)) 50 units SC QHS [facility] Last Admin: 10/01/17 22:38 Dose: 50 u Lisinopril (Zestril) 20 mg PO BID [facility] Last Admin: 10/02/17 08:48 Dose: 20 mg Magnesium Hydroxide (Milk Of Magnesia) 30 ml PO DAILY PRN PRN PRN Reason: Constipation Metoprolol Tartrate (Lopressor (Beta Kely)) 25 mg PO BID [facility] Last Admin: 10/02/17 08:37 Dose: 25 mg Nicotine (Nicoderm Cq (Pbkc)) 21 mg TRANSDERM. DAILY [facility] Last Admin: 10/02/17 08:37 Dose: 21 mg Nutritional Formula (Lactose Free) (Glucerna Shake) 120 ml PO 4X/DAY [facility] Last Admin: 10/02/17 18:02 Dose: 120 ml Shnhr-5-Mwtr Ethyl Esters (Lovaza) 2 gm PO BID [facility] Last Admin: 10/02/17 08:37 Dose: 2 gm Ondansetron HCl (Zofran) 4 mg IV Q8H PRN PRN PRN Reason: Nausea Oxycodone HCl (Oxyir) 5 mg PO Q4H PRN PRN PRN Reason: Moderate Pain (pain scale 4-5) Last Admin: 10/02/17 18:13 Dose: 5 mg Primidone (Mysoline) 50 mg PO BIDCM [facility] Last Admin: 10/02/17 18:03 Dose: 50 mg Psyllium Hydrophilic Mucilloid (Metamucil) 1 packet PO DAILY PRN PRN PRN Reason: CONSTIPATION Last Admin: 10/02/17 08:26 Dose: 1 packet Quetiapine Fumarate (Seroquel) 700 mg PO QHS [facility] Senna/Docusate Sodium (Senokot-S, Yusra-Colace) 2 tablet PO BID PRN PRN Reason: Constipation Sodium Chloride () 5 - 30 ml IV UD PRN PRN Reason: SALINE FLUSH Tamsulosin HCl (Flomax) 0.4 mg PO DAILY@0830 [facility] Last Admin: 10/02/17 08:36 Dose: 0.4 mg Assessment/Plan Active and Suspected Problems Falls (Acute) Type 2 diabetes mellitus (Acute) Sepsis (Acute) Acute kidney injury (Acute) Type 2 diabetes mellitus with diabetic polyneuropathy (Acute) Abscess of right foot (Acute) Charcot's joint of right foot (Acute) 61y/o male with PMHx of hypertension, Type 2 DM complicated by neuropathy, bipolar disorder who comes in with complaints of right leg swelling and falls 1. Sepsis secondary to Right foot and lower extremity swelling, secondary to diabetic foot infection, wound cultures growing MSSA, s/p I&D 10/01/17, initially on vancomycin and Zosyn, switched to Unasyn 2. Diabetic foot infection, complicated by PAD, s/p I&D, vascular study on the leg was significant for ERNESTINE on the right of 1.11, discussed with customer solutions representative who recommended vascular consult for further evaluation on the basis of small vessel disease/possible calcification. Consult placed for vascular, Dr. Peñaloza for recommendations 3. DM, type II complicated by peripheral neuropathy, with history of recurrent falls, HbA1c 7.3, blood sugars is controlled, on reduced doses of home insulin regimen, will continue on same as well as Accu-Cheks and insulin sliding scale and gabapentin. 3. Hypertension, controlled, on metoprolol, hydrochlorothiazide and lisinopril , continue same and continue to monitor 4. Hyperlipidemia, on simvastatin 5. Bipolar disorder, on Seroquel and Depakote 6. Acute kidney injury likely related to current infection, resolved with IV fluids 7. DVT prophylaxis on Lovenox subcu Code Visit Inpatient E&M: 14406 Subs Hosp L2
[2017-10-02] MEDS: QUEtiapine 100 MG Tablet 700 MG PO (22:15)
[2017-10-02] MEDS: Atorvastatin Calcium 20 MG Tablet PO (22:16)
[2017-10-02] MEDS: Divalproex (ER) 500 MG Tablet 2000 MG PO (22:16)
[2017-10-02 22:41] LABS: Bedside Glucose 231 mg/dL (70-110)
[2017-10-03] VITALS (13 sets, daily range): BP systolic 147–161; BP diastolic 69–77; PULSE 62–94; RESP 18–26; TEMP 36.6–37.4; O2SAT 90–97
[2017-10-03 07:58] LABS: Cholesterol 90 mg/dL (200); High Density Lipoprotein 12 mg/dL; Triglycerides 158 mg/dL; Very Low Density Lipoprotein 32 mg/dL (5-40)
[2017-10-03] MEDS: oxyCODONE 5 MG Tablet PO ×2 (08:18→21:46)
[2017-10-03] MEDS: Primidone 50 MG Tablet PO ×2 (08:19→17:29)
[2017-10-03] MEDS: Lisinopril 20 MG Tablet PO ×2 (08:19→21:52)
[2017-10-03] MEDS: Aspirin 81 MG TAB.CHEW PO (08:19)
[2017-10-03] MEDS: Gabapentin 600 MG Tablet PO ×3 (08:19→17:27)
[2017-10-03] MEDS: Metoprolol Tartrate 25 MG Tablet PO (08:19)
[2017-10-03] MEDS: Glucerna Shake 120 ML LIQUID PO ×4 (08:20→22:04)
[2017-10-03] MEDS: Tamsulosin HCl 0.4 MG Capsule PO (08:20)
[2017-10-03] MEDS: Omega-3 Acid Ethyl Esters 1 GM Capsule 2 GM PO ×2 (08:21→21:51)
[2017-10-03 08:31] LABS: Bedside Glucose 153 mg/dL (70-110)
[2017-10-03] MEDS: Ipratropium/Albuterol Sulfate 3 ML AMPUL.NEB INHALATION ×3 (08:40→19:30)
--- NOTE | 2017-10-03 10:53 | PN_ITS ---
Patient Problems: Active and Suspected Problems Falls (Acute) Type 2 diabetes mellitus (Acute) Sepsis (Acute) Acute kidney injury (Acute) Type 2 diabetes mellitus with diabetic polyneuropathy (Acute) Abscess of right foot (Acute) Charcot's joint of right foot (Acute) Subjective: Patient seen for follow up on right foot. He has no complaints at this time. He was resting in bed. - Physical Exam General: Alert, Cooperative, No apparent distress Extremities: Capillary Refill Less than 3 Seconds, No Calf Tenderness, - - s/p I +D to the right foot, 3 incisions - there is residual cellulitis which continues to improve/resolve, there is less swelling, he does not relate to pain , there is no maloder, no visible abscess, no purulence, bleeding controlled, the areas of debridement continue to heal. Musculoskeletal: No Tenderness to Palpation of Joints or Extremities - of foot or ankle Vital Signs Temp Pulse Resp BP Pulse Ox 97.8 F 85 24 H 158/71 H 97 10/03/17 08:26 10/03/17 08:41 10/03/17 08:41 10/03/17 08:26 10/03/17 08:46 Oxygen Flow Rate 2 Oxygen Delivery Method Room Air Weight: 81.4 kg Body Mass Index (BMI) 25.0 Intake and Output for Last 24 Hours 10/01/17 10/02/17 10/03/17 23:59 23:59 23:59 Intake Total 4507 / 4507 4263 / 4263 643 / 643 Output Total 1550 / 1550 300 / 300 200 / 200 Balance 2957 / 2957 3963 / 3963 443 / 443 Microbiology Past 72 Hours 10/01/17 Unknown Gram Stain - Final Wound - Aerobic & Anaerobic Swabs Wound Culture - Preliminary Staphylococcus aureus 09/30/17 Unknown Gram Stain - Final Wound Abcess - Aerobic & Anaerobic Swabs Wound Culture - Final Staphylococcus aureus Anaerobic Culture - Preliminary No growth in 48 hours. 09/30/17 09:26 Blood Culture - Preliminary Blood Culture (Wb) - Left Hand No growth in 48 hours. Laboratory Tests Past 24 Hrs 10/03/17 06:55 Triglycerides 158 Cholesterol 90 LDL Cholesterol 46 VLDL Cholesterol 32 HDL Cholesterol 12 L POC Glucose 10/03/17 10/02/17 10/02/17 08:14 22:29 17:55 POC Glucose 153 H 231 H 209 H 10/02/17 12:26 POC Glucose 111 H Assessment/Plan Active and Suspected Problems Falls (Acute) Type 2 diabetes mellitus (Acute) Sepsis (Acute) Acute kidney injury (Acute) Type 2 diabetes mellitus with diabetic polyneuropathy (Acute) Abscess of right foot (Acute) Charcot's joint of right foot (Acute) Cellulitis, abscess right foot s/p I+D on 10/01/17 Clinically continued improvement noted to foot with antibiotic therapy and I+D procedure. No fever, no leukocytosis. Surgical culture with staph aureus, previous culture grew MSSA; patient on Unasyn by Infectious Disease. Reviewed noninvasive lower extremity arterial study, appears to have normal ABIs but abnormal TBI to right foot consistent with small vessel disease - recommended vascular surgery evaluation. Changed dressing. Applied wet to dry dressing consisting of normal saline solution and overlying gauze, kerlix, abd pad and gallito bandage. Keep clean, dry, and intact. No weightbearing right forefoot, ok to put weight on right heel as needed for transitions. Keep right foot elevated. Reviewed with Dr. Munoz. Will continue to follow
[2017-10-03 11:51] LABS: Bedside Glucose 223 mg/dL (70-110)
--- NOTE | 2017-10-03 12:34 | PCM.PN.HOSP ---
Patient Problems: Active and Suspected Problems Falls (Acute) Type 2 diabetes mellitus (Acute) Sepsis (Acute) Acute kidney injury (Acute) Type 2 diabetes mellitus with diabetic polyneuropathy (Acute) Abscess of right foot (Acute) Charcot's joint of right foot (Acute) Subjective: Patient was seen and examined. No new complains. His breathing is much better. No acute events. Objective: Physical Exam General: Alert, Oriented x3, Cooperative, No apparent distress HEENT: Atraumatic, PERRLA, EOMI, Normocephalic Oral: Moist Mucosa Neck: Supple Lungs: Clear to auscultation, Normal air movement Cardiovascular: Regular rate, Regular Rhythm, Normal S1, Normal S2, No murmurs Abdomen: Bowel Sounds Present, Soft, Non Tender, Non-Distended, No Hepato-splenomegaly Extremities: Edema - of the right foot with erythema extending over the lower leg. Prominent bulge of the right plantar surface with ecchymosis and erythema, Tenderness, - - Diminished pulses of the right foot Skin: No rashes, No breakdown Musculoskeletal: No Tenderness to Palpation of Joints or Extremities Lymphatic: No Cervical, Supraclavicular, or Inguinal Adenopathy Neurological: Cranial nerves II-XII grossly intact, Neuro grossly intact Psych/Mental Status: Normal Affect, Appropriate Vitals/I&O's: Vital Signs Temp Pulse Resp BP Pulse Ox 97.8 F 85 24 H 158/71 H 97 10/03/17 08:26 10/03/17 08:41 10/03/17 08:41 10/03/17 08:26 10/03/17 08:46 Oxygen Flow Rate 2 Oxygen Delivery Method Room Air Weight: 81.4 kg Body Mass Index (BMI) 25.0 Intake and Output for Last 24 Hours 10/01/17 10/02/17 10/03/17 23:59 23:59 23:59 Intake Total 4507 / 4507 4263 / 4263 883 / 883 Output Total 1550 / 1550 300 / 300 600 / 600 Balance 2957 / 2957 3963 / 3963 283 / 283 Microbiology Past 72 Hours 10/01/17 Unknown Wound - Aerobic & Anaerobic Swabs Gram Stain - Final 10/01/17 Unknown Wound - Aerobic & Anaerobic Swabs Wound Culture - Preliminary Staphylococcus aureus 09/30/17 Unknown Wound Abcess - Aerobic & Anaerobic Swabs Gram Stain - Final 09/30/17 Unknown Wound Abcess - Aerobic & Anaerobic Swabs Wound Culture - Final Staphylococcus aureus 09/30/17 Unknown Wound Abcess - Aerobic & Anaerobic Swabs Anaerobic Culture - Preliminary No growth in 48 hours. 09/30/17 09:26 Blood Culture (Wb) - Left Hand Blood Culture - Preliminary No growth in 48 hours. Laboratory Results 10/02/17 12:26: POC Glucose 111 H 10/02/17 17:55: POC Glucose 209 H 10/02/17 22:29: POC Glucose 231 H 10/03/17 06:55: Triglycerides 158, Cholesterol 90, LDL Cholesterol 46, VLDL Cholesterol 32, HDL Cholesterol 12 L 10/03/17 08:14: POC Glucose 153 H 10/03/17 11:33: POC Glucose 223 H Current Medications Albuterol/Ipratropium (Duoneb) 3 ml INHALATION Q4HWA.RT [facility] Last Admin: 10/03/17 11:50 Dose: Not Given Aspirin (Aspirin, Baby) 81 mg PO DAILYCM [facility] Last Admin: 10/03/17 08:19 Dose: 81 mg Atorvastatin Calcium (Lipitor) 20 mg PO QHS [facility] Last Admin: 10/02/17 22:16 Dose: 20 mg Cholecalciferol (Vitamin D) 3,000 unit PO DAILY [facility] Last Admin: 10/03/17 11:34 Dose: 3,000 unit Dextrose (D50w Syringe) 0 gm IV X1 PRN; Protocol PRN Reason: Hypoglycemia Divalproex Sodium (Depakote Er) 2,000 mg PO QHS [facility] Last Admin: 10/02/17 22:16 Dose: 2,000 mg Gabapentin (Neurontin) 600 mg PO TIDCM [facility] Last Admin: 10/03/17 11:36 Dose: 600 mg Glucagon () 1 mg IM .X1 PRN PRN Reason: Hypoglycemia Hydrochlorothiazide (Hctz) 25 mg PO DAILY [facility] Last Admin: 09/30/17 17:28 Dose: Not Given Ampicillin Sodium/Sulbactam (Sodium 3 gm/ Sodium Chloride) 112 mls @ 150 mls/hr IV Q8 [facility] Last Admin: 10/03/17 05:06 Dose: 150 mls/hr Insulin Aspart (Novolog Flexpen (Bkc)) 0 units SC ACHS [facility] PRN Reason: Protocol Last Admin: 10/03/17 11:34 Dose: 2 units Insulin Aspart (Novolog Flexpen (Bkc)) 11 units SC DINNER [facility] Last Admin: 10/02/17 18:03 Dose: 11 units Insulin Aspart (Novolog Flexpen (Bkc)) 16 units SC BREAKFAST [facility] Last Admin: 10/03/17 08:23 Dose: 16 u Insulin Aspart (Novolog Flexpen (Bkc)) 10 units SC LUNCH [facility] Last Admin: 10/03/17 11:35 Dose: 10 units Insulin Detemir (Levemir (Bkc)) 50 units SC QHS [facility] Last Admin: 10/02/17 22:34 Dose: 50 u Lisinopril (Zestril) 20 mg PO BID [facility] Last Admin: 10/03/17 08:19 Dose: 20 mg Magnesium Hydroxide (Milk Of Magnesia) 30 ml PO DAILY PRN PRN PRN Reason: Constipation Metoprolol Tartrate (Lopressor (Beta Kely)) 50 mg PO BID [facility] Nicotine (Nicoderm Cq (Pbkc)) 21 mg TRANSDERM. DAILY [facility] Last Admin: 10/03/17 08:22 Dose: 21 mg Nutritional Formula (Lactose Free) (Glucerna Shake) 120 ml PO 4X/DAY [facility] Last Admin: 10/03/17 08:20 Dose: 120 ml Sevac-4-Btes Ethyl Esters (Lovaza) 2 gm PO BID [facility] Last Admin: 10/03/17 08:21 Dose: 2 gm Ondansetron HCl (Zofran) 4 mg IV Q8H PRN PRN PRN Reason: Nausea Oxycodone HCl (Oxyir) 5 mg PO Q4H PRN PRN PRN Reason: Moderate Pain (pain scale 4-5) Last Admin: 10/03/17 08:18 Dose: 5 [facility] Admin: 10/03/17 08:19 Dose: 50 mg Psyllium Hydrophilic Mucilloid (Metamucil) 1 packet PO DAILY PRN PRN PRN Reason: CONSTIPATION Last Admin: 10/02/17 08:26 Dose: 1 packet Quetiapine Fumarate (Seroquel) 700 mg PO QHS [facility] Last Admin: 10/02/17 22:15 Dose: 700 mg Senna/Docusate Sodium (Senokot-S, Yusra-Colace) 2 tablet PO BID PRN PRN Reason: Constipation Sodium Chloride () 5 - 30 ml IV UD PRN PRN Reason: SALINE FLUSH Tamsulosin HCl (Flomax) 0.4 mg PO DAILY@0830 [facility] Last Admin: 10/03/17 08:20 Dose: 0.4 mg Assessment/Plan Active and Suspected Problems Falls (Acute) Type 2 diabetes mellitus (Acute) Sepsis (Acute) Acute kidney injury (Acute) Type 2 diabetes mellitus with diabetic polyneuropathy (Acute) Abscess of right foot (Acute) Charcot's joint of right foot (Acute) 61y/o male with PMHx of hypertension, Type 2 DM complicated by neuropathy, bipolar disorder who comes in with complaints of right leg swelling and falls 1. MSSA Sepsis secondary to Right foot and lower extremity swelling, secondary to diabetic foot infection, wound cultures growing MSSA, s/p I&D 10/01/17, initially on vancomycin and Zosyn, now on Unasyn, 2. Diabetic foot infection, complicated by PAD, s/p I&D, vascular study on the leg was significant for ERNESTINE on the right of 1.11, discussed with patient access specialist who recommended vascular consult for further evaluation on the basis of small vessel disease/possible calcification. Consult placed for vascular, Dr. Peñaloza for recommendations 3. DM, type II complicated by peripheral neuropathy, with history of recurrent falls, HbA1c 7.3, blood sugars is slightly uncontrolled, resume home insulin regimen, will continue on same as well as Accu-Cheks and insulin sliding scale and gabapentin. 3. Hypertension, controlled, on metoprolol, hydrochlorothiazide and lisinopril, continue same and continue to monitor 4. Hyperlipidemia, on simvastatin 5. Bipolar disorder, on Seroquel and Depakote 6. Acute kidney injury likely related to current infection, resolved with IV fluids 7. DVT prophylaxis on Lovenox subcu Code Visit Inpatient E&M: 20910 Subs Hosp L2
--- NOTE | 2017-10-03 12:59 | PN_ITS ---
Patient Problems: Active and Suspected Problems Falls (Acute) Type 2 diabetes mellitus (Acute) Sepsis (Acute) Acute kidney injury (Acute) Type 2 diabetes mellitus with diabetic polyneuropathy (Acute) Abscess of right foot (Acute) Charcot's joint of right foot (Acute) Subjective: Patient was seen and examined. No new complains. His breathing is much better. No acute events. Objective: Physical Exam General: Alert, Oriented x3, Cooperative, No apparent distress HEENT: Atraumatic, PERRLA, EOMI, Normocephalic Oral: Moist Mucosa Neck: Supple Lungs: Clear to auscultation, Normal air movement Cardiovascular: Regular rate, Regular Rhythm, Normal S1, Normal S2, No murmurs Abdomen: Bowel Sounds Present, Soft, Non Tender, Non-Distended, No Hepato- splenomegaly Extremities: Edema - of the right foot with erythema extending over the lower leg. Prominent bulge of the right plantar surface with ecchymosis and erythema, Tenderness, - - Diminished pulses of the right foot Skin: No rashes, No breakdown Musculoskeletal: No Tenderness to Palpation of Joints or Extremities Lymphatic: No Cervical, Supraclavicular, or Inguinal Adenopathy Neurological: Cranial nerves II-XII grossly intact, Neuro grossly intact Psych/Mental Status: Normal Affect, Appropriate Vitals/I&O's: Vital Signs Temp Pulse Resp BP Pulse Ox 97.8 F 85 24 H 158/71 H 97 10/03/17 08:26 10/03/17 08:41 10/03/17 08:41 10/03/17 08:26 10/03/17 08:46 Oxygen Flow Rate 2 Oxygen Delivery Method Room Air Weight: 81.4 kg Body Mass Index (BMI) 25.0 Intake and Output for Last 24 Hours 10/01/17 10/02/17 10/03/17 23:59 23:59 23:59 Intake Total 4507 / 4507 4263 / 4263 883 / 883 Output Total 1550 / 1550 300 / 300 600 / 600 Balance 2957 / 2957 3963 / 3963 283 / 283 Microbiology Past 72 Hours 10/01/17 Unknown Wound - Aerobic & Anaerobic Swabs Gram Stain - Final 10/01/17 Unknown Wound - Aerobic & Anaerobic Swabs Wound Culture - Preliminary Staphylococcus aureus 09/30/17 Unknown Wound Abcess - Aerobic & Anaerobic Swabs Gram Stain - Final 09/30/17 Unknown Wound Abcess - Aerobic & Anaerobic Swabs Wound Culture - Final Staphylococcus aureus 09/30/17 Unknown Wound Abcess - Aerobic & Anaerobic Swabs Anaerobic Culture - Preliminary No growth in 48 hours. 09/30/17 09:26 Blood Culture (Wb) - Left Hand Blood Culture - Preliminary No growth in 48 hours. Laboratory Results 10/02/17 12:26: POC Glucose 111 H 10/02/17 17:55: POC Glucose 209 H 10/02/17 22:29: POC Glucose 231 H 10/03/17 06:55: Triglycerides 158, Cholesterol 90, LDL Cholesterol 46, VLDL Cholesterol 32, HDL Cholesterol 12 L 10/03/17 08:14: POC Glucose 153 H 10/03/17 11:33: POC Glucose 223 H Current Medications Albuterol/Ipratropium (Duoneb) 3 ml INHALATION Q4HWA.RT [facility] Last Admin: 10/03/17 11:50 Dose: Not Given Aspirin (Aspirin, Baby) 81 mg PO DAILYCM [facility] Last Admin: 10/03/17 08:19 Dose: 81 mg Atorvastatin Calcium (Lipitor) 20 mg PO QHS [facility] Last Admin: 10/02/17 22:16 Dose: 20 mg Cholecalciferol (Vitamin D) 3,000 unit PO DAILY [facility] Last Admin: 10/03/17 11:34 Dose: 3,000 unit Dextrose (D50w Syringe) 0 gm IV X1 PRN; Protocol PRN Reason: Hypoglycemia Divalproex Sodium (Depakote Er) 2,000 mg PO QHS [facility] Last Admin: 10/02/17 22:16 Dose: 2,000 mg Gabapentin (Neurontin) 600 mg PO TIDCM [facility] Last Admin: 10/03/17 11:36 Dose: 600 mg Glucagon () 1 mg IM .X1 PRN PRN Reason: Hypoglycemia Hydrochlorothiazide (Hctz) 25 mg PO DAILY [facility] Last Admin: 09/30/17 17:28 Dose: Not Given Ampicillin Sodium/Sulbactam (Sodium 3 gm/ Sodium Chloride) 112 mls @ 150 mls/ hr IV Q8 [facility] Last Admin: 10/03/17 05:06 Dose: 150 mls/hr Insulin Aspart (Novolog Flexpen (Bkc)) 0 units SC ACHS [facility] PRN Reason: Protocol Last Admin: 10/03/17 11:34 Dose: 2 units Insulin Aspart (Novolog Flexpen (Bkc)) 11 units SC DINNER [facility] Last Admin: 10/02/17 18:03 Dose: 11 units Insulin Aspart (Novolog Flexpen (Bkc)) 16 units SC BREAKFAST [facility] Last Admin: 10/03/17 08:23 Dose: 16 u Insulin Aspart (Novolog Flexpen (Bkc)) 10 units SC LUNCH [facility] Last Admin: 10/03/17 11:35 Dose: 10 units Insulin Detemir (Levemir (Bkc)) 50 units SC QHS [facility] Last Admin: 10/02/17 22:34 Dose: 50 u Lisinopril (Zestril) 20 mg PO BID [facility] Last Admin: 10/03/17 08:19 Dose: 20 mg Magnesium Hydroxide (Milk Of Magnesia) 30 ml PO DAILY PRN PRN PRN Reason: Constipation Metoprolol Tartrate (Lopressor (Beta Kely)) 50 mg PO BID [facility] Nicotine (Nicoderm Cq (Pbkc)) 21 mg TRANSDERM. DAILY [facility] Last Admin: 10/03/17 08:22 Dose: 21 mg Nutritional Formula (Lactose Free) (Glucerna Shake) 120 ml PO 4X/DAY [facility] Last Admin: 10/03/17 08:20 Dose: 120 ml [id number] Ethyl Esters (Lovaza) 2 gm PO BID [facility] Last Admin: 10/03/17 08:21 Dose: 2 gm Ondansetron HCl (Zofran) 4 mg IV Q8H PRN PRN PRN Reason: Nausea Oxycodone HCl (Oxyir) 5 mg PO Q4H PRN PRN PRN Reason: Moderate Pain (pain scale 4-5) Last Admin: 10/03/17 08:18 Dose: 5 mg [facility]) [facility] Last Admin: 10/03/17 08:19 Dose: 50 mg Psyllium Hydrophilic Mucilloid (Metamucil) 1 packet PO DAILY PRN PRN PRN Reason: CONSTIPATION Last Admin: 10/02/17 08:26 Dose: 1 packet Quetiapine Fumarate (Seroquel) 700 mg PO QHS [facility] Last Admin: 10/02/17 22:15 Dose: 700 mg Senna/Docusate Sodium (Senokot-S, Yusra-Colace) 2 tablet PO BID PRN PRN Reason: Constipation Sodium Chloride () 5 - 30 ml IV UD PRN PRN Reason: SALINE FLUSH Tamsulosin HCl (Flomax) 0.4 mg PO DAILY@0830 [facility] Last Admin: 10/03/17 08:20 Dose: 0.4 mg Assessment/Plan Active and Suspected Problems Falls (Acute) Type 2 diabetes mellitus (Acute) Sepsis (Acute) Acute kidney injury (Acute) Type 2 diabetes mellitus with diabetic polyneuropathy (Acute) Abscess of right foot (Acute) Charcot's joint of right foot (Acute) 61y/o male with PMHx of hypertension, Type 2 DM complicated by neuropathy, bipolar disorder who comes in with complaints of right leg swelling and falls 1. MSSA Sepsis secondary to Right foot and lower extremity swelling, secondary to diabetic foot infection, wound cultures growing MSSA, s/p I&D 10/01/17, initially on vancomycin and Zosyn, now on Unasyn, 2. Diabetic foot infection, complicated by PAD, s/p I&D, vascular study on the leg was significant for ERNESTINE on the right of 1.11, discussed with fabric worker foreman who recommended vascular consult for further evaluation on the basis of small vessel disease/possible calcification. Consult placed for vascular, Dr. Peñaloza for recommendations 3. DM, type II complicated by peripheral neuropathy, with history of recurrent falls, HbA1c 7.3, blood sugars is slightly uncontrolled, resume home insulin regimen, will continue on same as well as Accu-Cheks and insulin sliding scale and gabapentin. 3. Hypertension, controlled, on metoprolol, hydrochlorothiazide and lisinopril , continue same and continue to monitor 4. Hyperlipidemia, on simvastatin 5. Bipolar disorder, on Seroquel and Depakote 6. Acute kidney injury likely related to current infection, resolved with IV fluids 7. DVT prophylaxis on Lovenox subcu Code Visit Inpatient E&M: 46862 Subs Hosp L2
[2017-10-03 17:26] LABS: Bedside Glucose 166 mg/dL (70-110)
--- NOTE | 2017-10-03 18:45 | NURSING ---
This nurse called yardage tufting machine operator this morning around 11am. This nurse asked for Dr. Crow Peñaloza for consult on this patient. Match Up Worker told this nurse that he was not qm consultant and that Dr. Bae is qm consultant today. Dr. Bae was then paged and called and spoke to this nurse and informed her of the consult. Reason for consult is diabetic foot ulcer, PAD. Dr. Bae stated she could come see him but is not a Vascular surgeon. This nurse then paged Dr. Jones and informed her of the above. Dr. Jones is aware that Dr. Peñaloza is not qm consultant and wants a Vascular surgeon. Dr. Jones is okay with patient waiting until Thursday 10/[address] Peñaloza to see pt.
[2017-10-03] MEDS: QUEtiapine 100 MG Tablet 700 MG PO (21:51)
[2017-10-03] MEDS: Divalproex (ER) 500 MG Tablet 2000 MG PO (21:52)
[2017-10-03] MEDS: 0.9% NaCl Peripheral Flush Adult/Peds IV (21:54)
[2017-10-03] MEDS: Atorvastatin Calcium 20 MG Tablet PO (21:55)
[2017-10-03] MEDS: Metoprolol Tartrate 50 MG Tablet PO (21:55)
[2017-10-03 23:26] LABS: Bedside Glucose 228 mg/dL (70-110)
[2017-10-04] VITALS (9 sets, daily range): BP systolic 128–165; BP diastolic 63–81; PULSE 54–72; RESP 16–22; TEMP 36.7–36.9; O2SAT 92–97
[2017-10-04] MEDS: Acetaminophen 325 MG Tablet 650 MG PO ×3 (04:30→21:21)
[2017-10-04] MEDS: 0.9% NaCl Peripheral Flush Adult/Peds IV ×3 (05:48→21:17)
[2017-10-04 07:06] LABS: Bedside Glucose 112 mg/dL (70-110)
[2017-10-04] MEDS: Ipratropium/Albuterol Sulfate 3 ML AMPUL.NEB INHALATION ×4 (07:16→20:46)
--- NOTE | 2017-10-04 09:11 | PCM.PN.HOSP ---
Patient Problems: Active and Suspected Problems Falls (Acute) Type 2 diabetes mellitus (Acute) Sepsis (Acute) Acute kidney injury (Acute) Type 2 diabetes mellitus with diabetic polyneuropathy (Acute) Abscess of right foot (Acute) Charcot's joint of right foot (Acute) Subjective: Patient seen and examined. No complains. No acute events. Denies any fever or chills. Objective: Physical Exam General: Alert, Oriented x3, Cooperative, No apparent distress HEENT: Atraumatic, PERRLA, EOMI, Normocephalic Oral: Moist Mucosa Neck: Supple Lungs: Clear to auscultation, Normal air movement Cardiovascular: Regular rate, Regular Rhythm, Normal S1, Normal S2, No murmurs Abdomen: Bowel Sounds Present, Soft, Non Tender, Non-Distended, No Hepato-splenomegaly Extremities: Edema - right lower extremity is dressed in gauze dressing and JOANNA wrap. Skin: No rashes, No breakdown Musculoskeletal: No Tenderness to Palpation of Joints or Extremities Lymphatic: No Cervical, Supraclavicular, or Inguinal Adenopathy Neurological: Cranial nerves II-XII grossly intact, Neuro grossly intact Psych/Mental Status: Normal Affect, Appropriate Vitals/I&O's: Vital Signs Temp Pulse Resp BP Pulse Ox 98.4 F 66 18 128/63 H 92 10/04/17 02:50 10/04/17 07:16 10/04/17 07:16 10/04/17 02:50 10/04/17 07:16 Oxygen Flow Rate 2 Oxygen Delivery Method Room Air Weight: 81.4 kg Body Mass Index (BMI) 25.0 Intake and Output for Last 24 Hours 10/02/17 10/03/17 10/04/17 23:59 23:59 23:59 Intake Total 4263 / 4263 1203 / 1203 577 / 577 Output Total 300 / 300 1200 / 1200 250 / 250 Balance 3963 / 3963 3 / 3 327 / 327 Microbiology Past 72 Hours 10/01/17 Unknown Wound - Aerobic & Anaerobic Swabs Gram Stain - Final 10/01/17 Unknown Wound - Aerobic & Anaerobic Swabs Wound Culture - Final Staphylococcus aureus 09/30/17 Unknown Wound Abcess - Aerobic & Anaerobic Swabs Gram Stain - Final 09/30/17 Unknown Wound Abcess - Aerobic & Anaerobic Swabs Wound Culture - Final Staphylococcus aureus 09/30/17 Unknown Wound Abcess - Aerobic & Anaerobic Swabs Anaerobic Culture - Preliminary No growth in 48 hours. 09/30/17 09:26 Blood Culture (Wb) - Left Hand Blood Culture - Preliminary No growth in 48 hours. Laboratory Results 10/03/17 11:33: POC Glucose 223 H 10/03/17 16:15: POC Glucose 166 H 10/03/17 21:45: POC Glucose 228 H 10/04/17 06:45: POC Glucose 112 H Current Medications Acetaminophen (Tylenol) 650 mg PO Q4H PRN PRN PRN Reason: PAIN Last Admin: 10/04/17 04:30 Dose: 650 mg Albuterol/Ipratropium (Duoneb) 3 ml INHALATION Q4HWA.RT [facility] Last Admin: 10/04/17 07:16 Dose: 3 ml Aspirin (Aspirin, Baby) 81 mg PO DAILYCM [facility] Last Admin: 10/03/17 08:19 Dose: 81 mg Atorvastatin Calcium (Lipitor) 20 mg PO QHS [facility] Last Admin: 10/03/17 21:55 Dose: 20 mg Cholecalciferol (Vitamin D) 3,000 unit PO DAILY [facility] Last Admin: 10/03/17 11:34 Dose: 3,000 unit Dextrose (D50w Syringe) 0 gm IV X1 PRN; Protocol PRN Reason: Hypoglycemia Divalproex Sodium (Depakote Er) 2,000 mg PO QHS [facility] Last Admin: 10/03/17 21:52 Dose: 2,000 mg Gabapentin (Neurontin) 600 mg PO TIDCM [facility] Last Admin: 10/03/17 17:27 Dose: 600 mg Glucagon () 1 mg IM .X1 PRN PRN Reason: Hypoglycemia Hydrochlorothiazide (Hctz) 25 mg PO DAILY [facility] Last Admin: 09/30/17 17:28 Dose: Not Given Ampicillin Sodium/Sulbactam (Sodium 3 gm/ Sodium Chloride) 112 mls @ 150 mls/hr IV Q8 [facility] Last Admin: 10/04/17 05:47 Dose: 150 mls/hr Insulin Aspart (Novolog Flexpen (Bkc)) 0 units SC ACHS [facility] PRN Reason: Protocol Last Admin: 10/04/17 06:57 Dose: Not Given Insulin Aspart (Novolog Flexpen (Bkc)) 20 units SC LUNCH JESSIE Insulin Aspart (Novolog Flexpen (Bkc)) 22 units SC DINNER [facility] Last Admin: 10/03/17 17:32 Dose: 22 units Insulin Aspart (Novolog Flexpen (Bk)) 32 units SC BREAKFAST [facility] Insulin Detemir (Levemir (Bkc)) 50 units SC QHS [facility] Last Admin: 10/03/17 21:52 Dose: 50 u Lisinopril (Zestril) 20 mg PO BID [facility] Last Admin: 10/03/17 21:52 Dose: 20 mg Magnesium Hydroxide (Milk Of Magnesia) 30 ml PO DAILY PRN PRN PRN Reason: Constipation Metoprolol Tartrate (Lopressor (Beta Kely)) 50 mg PO BID [facility] Last Admin: 10/03/17 21:55 Dose: 50 mg Nicotine (Nicoderm Cq (Pbkc)) 21 mg TRANSDERM. DAILY [facility] Last Admin: 10/03/17 08:22 Dose: 21 mg Nutritional Formula (Lactose Free) (Glucerna Shake) 120 ml PO 4X/DAY [facility] Last Admin: 10/03/17 22:04 Dose: 120 ml Rcsdp-2-Tmlp Ethyl Esters (Lovaza) 2 gm PO BID [facility] Last Admin: 10/03/17 21:51 Dose: 2 gm Ondansetron HCl (Zofran) 4 mg IV Q8H PRN PRN PRN Reason: Nausea Oxycodone HCl (Oxyir) 5 mg PO Q4H PRN PRN PRN Reason: Moderate Pain (pain scale 4-5) Last Admin: 10/03/17 21:46 Dose: 5 [facility] Last Admin: 10/03/17 17:29 Dose: 50 mg Psyllium Hydrophilic Mucilloid (Metamucil) 1 packet PO DAILY PRN PRN PRN Reason: CONSTIPATION Last Admin: 10/02/17 08:26 Dose: 1 packet Quetiapine Fumarate (Seroquel) 700 mg PO QHS [facility] Last Admin: 10/03/17 21:51 Dose: 700 mg Senna/Docusate Sodium (Senokot-S, Yusra-Colace) 2 tablet PO BID PRN PRN Reason: Constipation Sodium Chloride () 5 - 30 ml IV UD PRN PRN Reason: SALINE FLUSH Last Admin: 10/04/17 05:48 Dose: 10 ml Tamsulosin HCl (Flomax) 0.4 mg PO DAILY@0830 [facility] Last Admin: 10/03/17 08:20 Dose: 0.4 mg Assessment/Plan Active and Suspected Problems Falls (Acute) Type 2 diabetes mellitus (Acute) Sepsis (Acute) Acute kidney injury (Acute) Type 2 diabetes mellitus with diabetic polyneuropathy (Acute) Abscess of right foot (Acute) Charcot's joint of right foot (Acute) 61y/o male with PMHx of hypertension, Type 2 DM complicated by neuropathy, bipolar disorder who comes in with complaints of right leg swelling and falls 1. MSSA Sepsis secondary to Right foot and lower extremity swelling, secondary to diabetic foot infection, wound cultures growing MSSA, s/p I&D 10/01/17, initially on vancomycin and Zosyn, now on Unasyn, per ID, patient will possibly be discharged on po augmentin and doxycycline. 2. Diabetic foot infection, complicated by PAD, s/p I&D, vascular study on the leg was significant for ERNESTINE on the right of 1.11, discussed with upset welding machine operator who recommended vascular consult for further evaluation on the basis of small vessel disease/possible calcification. Consult placed for vascular, Dr. Peñaloza for recommendations 3. DM, type II complicated by peripheral neuropathy, with history of recurrent falls, HbA1c 7.3, blood sugars are controlled, on home insulin regimen, will continue on same as well as Accu-Cheks and insulin sliding scale and gabapentin. 3. Hypertension, controlled, on metoprolol, hydrochlorothiazide and lisinopril, continue same and continue to monitor 4. Hyperlipidemia, on simvastatin 5. Bipolar disorder, on Seroquel and Depakote 6. Acute kidney injury likely related to current infection, resolved 7. DVT prophylaxis on Lovenox subcu Code Visit Inpatient E&M: 78974 Subs Hosp L2
--- NOTE | 2017-10-04 09:20 | PCM.PROGNOTE ---
Patient Problems: Active and Suspected Problems Falls (Acute) Type 2 diabetes mellitus (Acute) Sepsis (Acute) Acute kidney injury (Acute) Type 2 diabetes mellitus with diabetic polyneuropathy (Acute) Abscess of right foot (Acute) Charcot's joint of right foot (Acute) Subjective: Patient seen today for follow up on right foot. He has no new complaints. Denies pain in foot. - Physical Exam General: Alert, Oriented x3, Cooperative, No apparent distress Extremities: Capillary Refill Less than 3 Seconds, No Calf Tenderness, Diminished Peripheral Pulses - Chronic, - - s/p I+D to the right foot, 3 incisions - there is residual cellulitis which continues to improve/resolve, there is less swelling - there is return of skin lines and wrinkles, he does not relate to pain, there is no maloder, no visible abscess, no purulence, bleeding controlled, the areas of debridement continue to heal. Vital Signs Temp Pulse Resp BP Pulse Ox 98.4 F 66 18 128/63 H 92 10/04/17 02:50 10/04/17 07:16 10/04/17 07:16 10/04/17 02:50 10/04/17 07:16 Oxygen Flow Rate 2 Oxygen Delivery Method Room Air Weight: 81.4 kg Body Mass Index (BMI) 25.0 Intake and Output for Last 24 Hours 10/02/17 10/03/17 10/04/17 23:59 23:59 23:59 Intake Total 4263 / 4263 1203 / 1203 577 / 577 Output Total 300 / 300 1200 / 1200 250 / 250 Balance 3963 / 3963 3 / 3 327 / 327 Microbiology Past 72 Hours 10/01/17 Unknown Gram Stain - Final Wound - Aerobic & Anaerobic Swabs Wound Culture - Final Staphylococcus aureus 09/30/17 Unknown Gram Stain - Final Wound Abcess - Aerobic & Anaerobic Swabs Wound Culture - Final Staphylococcus aureus Anaerobic Culture - Preliminary No growth in 48 hours. 09/30/17 09:26 Blood Culture - Preliminary Blood Culture (Wb) - Left Hand No growth in 48 hours. POC Glucose 10/04/17 10/03/17 10/03/17 06:45 21:45 16:15 POC Glucose 112 H 228 H 166 H 10/03/17 11:33 POC Glucose 223 H Assessment/Plan Active and Suspected Problems Falls (Acute) Type 2 diabetes mellitus (Acute) Sepsis (Acute) Acute kidney injury (Acute) Type 2 diabetes mellitus with diabetic polyneuropathy (Acute) Abscess of right foot (Acute) Charcot's joint of right foot (Acute) Cellulitis, abscess right foot s/p I+D on 10/01/17 There is continued improvement noted to foot with antibiotic therapy and I+D procedure. Site is healing. No fever, no leukocytosis. Surgical culture with MSSA, previous culture also with MSSA; patient on Unasyn by Infectious Disease. Changed dressing. Applied wet to dry dressing consisting of normal saline solution and overlying gauze, kerlix, abd pad and gallito bandage. Keep clean, dry, and intact. No weightbearing right forefoot, ok to put weight on right heel as needed for transitions. Keep right foot elevated. Noninvasive lower extremity arterial study has been reviewed, appears to have normal ABIs but abnormal TBI to right foot consistent with small vessel disease - vascular surgery has been consulted for further recommendations. Will continue to follow
[2017-10-04] MEDS: Lisinopril 20 MG Tablet PO ×2 (11:03→21:20)
[2017-10-04] MEDS: Glucerna Shake 120 ML LIQUID PO ×4 (11:03→21:18)
[2017-10-04] MEDS: Omega-3 Acid Ethyl Esters 1 GM Capsule 2 GM PO ×2 (11:04→21:20)
[2017-10-04] MEDS: Gabapentin 600 MG Tablet PO ×2 (11:04→17:14)
[2017-10-04] MEDS: Metoprolol Tartrate 50 MG Tablet PO ×2 (11:05→21:20)
[2017-10-04] MEDS: Tamsulosin HCl 0.4 MG Capsule PO (11:07)
[2017-10-04] MEDS: Aspirin 81 MG TAB.CHEW PO (11:07)
[2017-10-04] MEDS: Primidone 50 MG Tablet PO ×2 (11:08→17:14)
[2017-10-04 12:11] LABS: Bedside Glucose 227 mg/dL (70-110)
[2017-10-04 17:36] LABS: Bedside Glucose 172 mg/dL (70-110)
[2017-10-04] MEDS: QUEtiapine 100 MG Tablet 700 MG PO (21:21)
[2017-10-04] MEDS: Divalproex (ER) 500 MG Tablet 2000 MG PO (21:21)
[2017-10-04] MEDS: Atorvastatin Calcium 20 MG Tablet PO (21:21)
[2017-10-04 23:11] LABS: Bedside Glucose 196 mg/dL (70-110)
[2017-10-05] VITALS (12 sets, daily range): BP systolic 122–175; BP diastolic 64–88; PULSE 49–78; RESP 16–21; TEMP 36.5–36.8; O2SAT 91–98
[2017-10-05] MEDS: Acetaminophen 325 MG Tablet 650 MG PO ×4 (03:23→22:11)
[2017-10-05] MEDS: 0.9% NaCl Peripheral Flush Adult/Peds IV ×4 (05:56→21:59)
--- NOTE | 2017-10-05 06:17 | PCM.CONS.GEN ---
Problem List (1) PAD (peripheral artery disease) Status: Acute (2) Abscess of right foot Status: Acute Reason for Consult Date of Consultation: 10/05/17 History of Present Illness: The patient is a 62 year old M who was admitted to the [facility] on September 30, 2017 with a abscessed diabetic right foot. I have been asked to provide surgical consultation regarding peripheral vascular occlusive disease and potential need for revascularization. Consult was placed by Dr. Jones and a electronic copy of my consult will return to her. In addition the patient is diabetic neuropathy with recent falls and acute kidney injury and hypertension and sepsis. Foot x-rays that were performed on September 30, 2017 did not demonstrate visible calcification of the vessels. A lower extremity CT scan that was performed on September 30, 2007 was not interpreted as demonstrating calcification of vessels. On my review of that study there is some scattered calcification but it does not appear to be extensive. Dr. Henry Mckee contributed a right lower extremity venous duplex exam on September 30, 2017 and it was negative for acute deep venous or superficial thrombophlebitis. A bilateral lower extremity noninvasive arterial exam at rest was performed on October 01, 2017. That interpretation is still pending per Dr. Jose Abarca. The right lower extremity PT and DP ankle-brachial indices are normal at 1.11 and 1.06 with a digital index that is low at 0.37. The right posterior tibial and dorsalis pedis waveforms are biphasic. The volume pulse recordings demonstrate normal amplification at the calf and the ankle waveforms are well maintained. The digital waveforms are minimally depressed. The left lower extremity demonstrates PT and DP ankle-brachial indices of 1.09 and 1.02 with a digital index of 0.7. The Doppler waveforms are triphasic and the volume pulse recordings are normal. On October 01, [address] Marsh the patient underwent incision and drainage and debridement of the right foot. It is of note that the operative record states that there was significant bleeding during that operation to the point where the right lower extremity had a be elevated to assist with exsanguination and the right ankle pneumatic tourniquet had to be inflated Past Medical History Past Medical History (Chronic Problems): Chronic Problems Diabetic foot infection (Chronic) Hypertension (Chronic) Allergies HYDROCODONE Allergy (Uncoded 09/30/17 07:54) Unknown Home Medications: Ambulatory Orders Medication Instructions Recorded Acetaminophen [Tylenol] 975 mg PO TID PRN 09/30/17 Ammonium Lactate 1 dose TOPICAL DAILY 09/30/17 Aspirin 81 mg PO DAILY 09/30/17 Capsaicin 1 dose TOPICAL TID PRN PRN 09/30/17 Cholecalciferol (VIT D3) [Vitamin 3,000 unit PO DAILY 09/30/17 D] Diclofenac 4 gm TOPICAL BID 09/30/17 Divalproex Sodium [Depakote ER] 4 tab PO QHS 09/30/17 Gabapentin [Neurontin] 2 tab PO TID 09/30/17 Hydrochlorothiazide [Hctz] 25 mg PO DAILY 09/30/17 Insulin Aspart [Novolog Flexpen 20 units SC LUNCH 09/30/17 ([facility])] Insulin Aspart [Novolog Flexpen 22 units SC DINNER 09/30/17 ([facility])] Insulin Aspart [Novolog Flexpen 32 units SC BREAKFAST 09/30/17 ([facility])] Insulin Aspart [Novolog Flexpen See Protocol SC TIDCM 09/30/17 ([facility])] Insulin Glargine,Hum.rec.anlog 78 unit SC QHS 09/30/17 [Lantus] Lisinopril [Zestril] 20 mg PO BID 09/30/17 Metoprolol Tartrate [Lopressor 25 mg PO BID 09/30/17 (Beta Kely)] Nicotine Polacrilex [Nicorette] 2 mg BC TID PRN PRN 09/30/17 [place]-3 Fatty Acids/Fish Oil [Fish 2 cap PO BID 09/30/17 Oil 1,000 mg Capsule] Primidone [Mysoline] 50 mg PO BID 09/30/17 Quetiapine Fumarate [Seroquel] 700 mg PO QHS 09/30/17 Simvastatin 40 tab PO QHS 09/30/17 Tamsulosin HCl [Flomax] 1 tab PO QHS 09/30/17 Surgical History: - - unknown Psychiatric History: No pertinent psych hx Lives: - - He lives with others in this location is not known if this is at a assisted or with family or friends Smoking Status: Current every day smoker Tobacco Use: Cigarettes Alcohol: None Drugs: Cocaine - history - *Family History Maternal History Items: No pertinent history Paternal History Items: No pertinent history Review of Systems Constitutional: Denies: Anorexia Eyes: Denies: Blurred vision HEENT: Denies: Difficulty Hearing Cardiovascular: Denies: Chest Pain Respiratory: Denies: Cough Gastrointestinal: Denies: Abdominal Pain Genitourinary: Denies: Dysuria Neurological: Reports: Balance problems Psychiatric: Denies: Anxiety Patient Problems: Active and Suspected Problems Falls (Acute) Type 2 diabetes mellitus (Acute) Sepsis (Acute) Acute kidney injury (Acute) Type 2 diabetes mellitus with diabetic polyneuropathy (Acute) Abscess of right foot (Acute) Charcot's joint of right foot (Acute) PAD (peripheral artery disease) (Acute) - Physical Exam General: Alert, Cooperative, No apparent distress HEENT: - - Small tear apical scalp Oral: Moist Mucosa Neck: Supple Lungs: Clear to auscultation Cardiovascular: Regular rate Abdomen: Bowel Sounds Present, Soft, Non Tender, - - No bruit Extremities: - - Bilateral carotids and brachial and radials and femorals and popliteals and DP and PT pulses are 3+. No carotid bruits noted. Vital Signs Temp Pulse Resp BP Pulse Ox 97.8 F 49 L 18 150/88 H 97 10/05/17 02:50 10/05/17 02:50 10/05/17 02:50 10/05/17 02:50 10/05/17 02:50 Oxygen Flow Rate 2 Oxygen Delivery Method Room Air Weight: 179 lb 7.3 oz Body Mass Index (BMI) 25.0 Intake and Output for Last 24 Hours 10/03/17 10/04/17 10/05/17 23:59 23:59 23:59 Intake Total 1203 / 1203 877 / 877 604 / 604 Output Total 1200 / 1200 950 / 950 700 / 700 Balance 3 / 3 -73 / -73 -96 / -96 Microbiology Past 72 Hours 10/01/17 Unknown Gram Stain - Final Wound - Aerobic & Anaerobic Swabs Wound Culture - Final Staphylococcus aureus 09/30/17 Unknown Gram Stain - Final Wound Abcess - Aerobic & Anaerobic Swabs Wound Culture - Final Staphylococcus aureus Anaerobic Culture - Preliminary No growth in 48 hours. 09/30/17 09:26 Blood Culture - Preliminary Blood Culture (Wb) - Left Hand No growth in 48 hours. POC Glucose 10/04/17 10/04/17 10/04/17 21:11 16:59 11:17 POC Glucose 196 H 172 H 227 H 10/04/17 06:45 POC Glucose 112 H Assessment/Plan Active and Suspected Problems Falls (Acute) Type 2 diabetes mellitus (Acute) Sepsis (Acute) Acute kidney injury (Acute) Type 2 diabetes mellitus with diabetic polyneuropathy (Acute) Abscess of right foot (Acute) Charcot's joint of right foot (Acute) PAD (peripheral artery disease) (Acute) 62-year-old gentleman who has 3+ palpable pulses at all sites. By report he had significant bleeding at the time of surgery. Also when acutely infected he had mildly abnormal digital indices and waveforms this likely was secondary to the acute infection and tension within the foot. Dr. Rodriguez postoperative notes continue to reflect that the bleeding at the time of surgery remains controlled. I do not believe that he will require vascular intervention at this time. Thank you for the opportunity of assisting with her surgical care Crow Peñaloza M.D., F.A.C.S.
--- NOTE | 2017-10-05 06:27 | CON.PCM_ITS ---
Problem List (1) PAD (peripheral artery disease) Status: Acute (2) Abscess of right foot Status: Acute Reason for Consult Date of Consultation: 10/05/17 History of Present Illness: The patient is a 62 year old M who was admitted to the [facility] on September 30, 2017 with a abscessed diabetic right foot. I have been asked to provide surgical consultation regarding peripheral vascular occlusive disease and potential need for revascularization. Consult was placed by Dr. Jones and a electronic copy of my consult will return to her. In addition the patient is diabetic neuropathy with recent falls and acute kidney injury and hypertension and sepsis. Foot x-rays that were performed on September 30, 2017 did not demonstrate visible calcification of the vessels. A lower extremity CT scan that was performed on September 30, 2007 was not interpreted as demonstrating calcification of vessels. On my review of that study there is some scattered calcification but it does not appear to be extensive. Dr. Henry Mckee contributed a right lower extremity venous duplex exam on September 30, 2017 and it was negative for acute deep venous or superficial thrombophlebitis. A bilateral lower extremity noninvasive arterial exam at rest was performed on October 01, 2017. That interpretation is still pending per Dr. Jose Abarca. The right lower extremity PT and DP ankle-brachial indices are normal at 1.11 and 1.06 with a digital index that is low at 0.37. The right posterior tibial and dorsalis pedis waveforms are biphasic. The volume pulse recordings demonstrate normal amplification at the calf and the ankle waveforms are well maintained. The digital waveforms are minimally depressed. The left lower extremity demonstrates PT and DP ankle-brachial indices of 1.09 and 1.02 with a digital index of 0.7. The Doppler waveforms are triphasic and the volume pulse recordings are normal. On October 01, [address] Marsh the patient underwent incision and drainage and debridement of the right foot. It is of note that the operative record states that there was significant bleeding during that operation to the point where the right lower extremity had a be elevated to assist with exsanguination and the right ankle pneumatic tourniquet had to be inflated Past Medical History Past Medical History (Chronic Problems): Chronic Problems Diabetic foot infection (Chronic) Hypertension (Chronic) Allergies HYDROCODONE Allergy (Uncoded 09/30/17 07:54) Unknown Home Medications: Ambulatory Orders Medication Instructions Recorded Acetaminophen [Tylenol] 975 mg PO TID PRN 09/30/17 Ammonium Lactate 1 dose TOPICAL DAILY 09/30/17 Aspirin 81 mg PO DAILY 09/30/17 Capsaicin 1 dose TOPICAL TID PRN PRN 09/30/17 Cholecalciferol (VIT D3) [Vitamin 3,000 unit PO DAILY 09/30/17 D] Diclofenac 4 gm TOPICAL BID 09/30/17 Divalproex Sodium [Depakote ER] 4 tab PO QHS 09/30/17 Gabapentin [Neurontin] 2 tab PO TID 09/30/17 Hydrochlorothiazide [Hctz] 25 mg PO DAILY 09/30/17 Insulin Aspart [Novolog Flexpen 20 units SC LUNCH 09/30/17 ([facility])] Insulin Aspart [Novolog Flexpen 22 units SC DINNER 09/30/17 ([facility])] Insulin Aspart [Novolog Flexpen 32 units SC BREAKFAST 09/30/17 ([facility])] Insulin Aspart [Novolog Flexpen See Protocol SC TIDCM 09/30/17 ([facility])] Insulin Glargine,Hum.rec.anlog 78 unit SC QHS 09/30/17 [Lantus] Lisinopril [Zestril] 20 mg PO BID 09/30/17 Metoprolol Tartrate [Lopressor 25 mg PO BID 09/30/17 (Beta Kely)] Nicotine Polacrilex [Nicorette] 2 mg BC TID PRN PRN 09/30/17 [place]-3 Fatty Acids/Fish Oil [Fish 2 cap PO BID 09/30/17 Oil 1,000 mg Capsule] Primidone [Mysoline] 50 mg PO BID 09/30/17 Quetiapine Fumarate [Seroquel] 700 mg PO QHS 09/30/17 Simvastatin 40 tab PO QHS 09/30/17 Tamsulosin HCl [Flomax] 1 tab PO QHS 09/30/17 Surgical History: - - unknown Psychiatric History: No pertinent psych hx Lives: - - He lives with others in this location is not known if this is at a [place] or with family or friends Smoking Status: Current every day smoker Tobacco Use: Cigarettes Alcohol: None Drugs: Cocaine - history - *Family History Maternal History Items: No pertinent history Paternal History Items: No pertinent history Review of Systems Constitutional: Denies: Anorexia Eyes: Denies: Blurred vision HEENT: Denies: Difficulty Hearing Cardiovascular: Denies: Chest Pain Respiratory: Denies: Cough Gastrointestinal: Denies: Abdominal Pain Genitourinary: Denies: Dysuria Neurological: Reports: Balance problems Psychiatric: Denies: Anxiety Patient Problems: Active and Suspected Problems Falls (Acute) Type 2 diabetes mellitus (Acute) Sepsis (Acute) Acute kidney injury (Acute) Type 2 diabetes mellitus with diabetic polyneuropathy (Acute) Abscess of right foot (Acute) Charcot's joint of right foot (Acute) PAD (peripheral artery disease) (Acute) - Physical Exam General: Alert, Cooperative, No apparent distress HEENT: - - Small tear apical scalp Oral: Moist Mucosa Neck: Supple Lungs: Clear to auscultation Cardiovascular: Regular rate Abdomen: Bowel Sounds Present, Soft, Non Tender, - - No bruit Extremities: - - Bilateral carotids and brachial and radials and femorals and popliteals and DP and PT pulses are 3+. No carotid bruits noted. Vital Signs Temp Pulse Resp BP Pulse Ox 97.8 F 49 L 18 150/88 H 97 10/05/17 02:50 10/05/17 02:50 10/05/17 02:50 10/05/17 02:50 10/05/17 02:50 Oxygen Flow Rate 2 Oxygen Delivery Method Room Air Weight: 179 lb 7.3 oz Body Mass Index (BMI) 25.0 Intake and Output for Last 24 Hours 10/03/17 10/04/17 10/05/17 23:59 23:59 23:59 Intake Total 1203 / 1203 877 / 877 604 / 604 Output Total 1200 / 1200 950 / 950 700 / 700 Balance 3 / 3 -73 / -73 -96 / -96 Microbiology Past 72 Hours 10/01/17 Unknown Gram Stain - Final Wound - Aerobic & Anaerobic Swabs Wound Culture - Final Staphylococcus aureus 09/30/17 Unknown Gram Stain - Final Wound Abcess - Aerobic & Anaerobic Swabs Wound Culture - Final Staphylococcus aureus Anaerobic Culture - Preliminary No growth in 48 hours. 09/30/17 09:26 Blood Culture - Preliminary Blood Culture (Wb) - Left Hand No growth in 48 hours. POC Glucose 10/04/17 10/04/17 10/04/17 21:11 16:59 11:17 POC Glucose 196 H 172 H 227 H 10/04/17 06:45 POC Glucose 112 H Assessment/Plan Active and Suspected Problems Falls (Acute) Type 2 diabetes mellitus (Acute) Sepsis (Acute) Acute kidney injury (Acute) Type 2 diabetes mellitus with diabetic polyneuropathy (Acute) Abscess of right foot (Acute) Charcot's joint of right foot (Acute) PAD (peripheral artery disease) (Acute) 62-year-old gentleman who has 3+ palpable pulses at all sites. By report he had significant bleeding at the time of surgery. Also when acutely infected he had mildly abnormal digital indices and waveforms this likely was secondary to the acute infection and tension within the foot. Dr. Rodriguez postoperative notes continue to reflect that the bleeding at the time of surgery remains controlled. I do not believe that he will require vascular intervention at this time. Thank you for the opportunity of assisting with her surgical care Crow Peñaloza M.D., F.A.C.S.
[2017-10-05 06:38] LABS: Absolute Lymphocyte Count 1.75 X10^3/ul (0.83-4.51); Absolute Neutrophil Count 3.5 X10^3/uL (2.0-7.7); Basophil# 0.04 X10^3/uL; Basophil% 0.6 % (0-1); Eosinophils% 6.2 % (0-5); Hematocrit 34.1 % (40-54); Hemoglobin 11.7 g/dl (13.0-16.5); Lymphocyte # 1.75 X10^3/ul (4.0); Mean Corp Hgb Conc 34.3 g/gl (32-36); Mean Corpuscular Hgb 30.3 pg (27.0-32.0); Mean Corpuscular Volume 88.3 fL (80-94); Mean Platelet Vol. 10.2 fl (6.2-12.0); Monocyte# 0.73 X10^3/uL; Monocyte% 11.3 % (0-10); Neutrophil # 3.49 X10^3/uL (2.7-7.7); Neutrophil % 53.8 % (47-70); Platelet Count 193 K/mm3 (150-450); RBC Distribution Width CV 13.2 % (11.6-14.6); RBC Distribution Width SD 41.5 fl (35.1-43.9); Red Blood Count 3.86 M/mm3 (4.6-6.2); White Blood Count 6.5 K/mm3 (4.4-11.0)
[2017-10-05 06:50] LABS: Anion Gap 9 (5-15); BUN 24 mg/dL (7-18); BUN/Creat Ratio 30.9 RATIO (10-20); Calcium,Total 8.6 mg/dL (8.5-10.1); Chloride 104 mmol/L (98-107); Creatinine, Serum 0.78 mg/dL (0.70-1.30); EST Glomerular Filtration Rate 107 mL/min (>60); Est Glom Filt Rate - Afr Amer 129 mL/min (>60); Glucose 110 mg/dL (70-110); Potassium 3.8 mmol/L (3.5-5.1); Sodium Level 135 mmol/L (136-145)
[2017-10-05 06:56] LABS: Bedside Glucose 117 mg/dL (70-110)
--- NOTE | 2017-10-05 07:24 | PN_ITS ---
Patient Problems: Active and Suspected Problems Falls (Acute) Type 2 diabetes mellitus (Acute) Sepsis (Acute) Acute kidney injury (Acute) Type 2 diabetes mellitus with diabetic polyneuropathy (Acute) Abscess of right foot (Acute) Charcot's joint of right foot (Acute) PAD (peripheral artery disease) (Acute) Subjective: Patient seen for follow up on right foot. He does not relate to any foot pain, or to fever, chills, nausea or vomiting. Dr. Peñaloza saw patient today and no vascular intervention plans. - Physical Exam General: Alert, Cooperative, No apparent distress Extremities: Capillary Refill Less than 3 Seconds, No Calf Tenderness, - - s/p I +D to the right foot, 3 incisions - there is significantly less erythema to foot , there is much less swelling with return of skin lines/wrinkles, he does not relate to pain, there is no maloder, no visible abscess, no purulence, bleeding controlled, the areas of debridement continue to heal. Pedal pulses intact to the right foot. Vital Signs Temp Pulse Resp BP Pulse Ox 97.8 F 49 L 18 150/88 H 97 10/05/17 02:50 10/05/17 02:50 10/05/17 02:50 10/05/17 02:50 10/05/17 02:50 Oxygen Flow Rate 2 Oxygen Delivery Method Room Air Weight: 81.4 kg Body Mass Index (BMI) 25.0 Intake and Output for Last 24 Hours 10/03/17 10/04/17 10/05/17 23:59 23:59 23:59 Intake Total 1203 / 1203 877 / 877 604 / 604 Output Total 1200 / 1200 950 / 950 700 / 700 Balance 3 / 3 -73 / -73 -96 / -96 Microbiology Past 72 Hours 10/01/17 Unknown Gram Stain - Final Wound - Aerobic & Anaerobic Swabs Wound Culture - Final Staphylococcus aureus 09/30/17 Unknown Gram Stain - Final Wound Abcess - Aerobic & Anaerobic Swabs Wound Culture - Final Staphylococcus aureus Anaerobic Culture - Preliminary No growth in 48 hours. 09/30/17 09:26 Blood Culture - Preliminary Blood Culture (Wb) - Left Hand No growth in 48 hours. Laboratory Tests Past 24 Hrs 10/05/17 10/05/17 06:00 06:00 WBC Pending RBC Pending Hgb Pending Hct Pending MCV Pending MCH Pending MCHC Pending RDW Pending RDW Differential Pending Plt Count Pending Neut % (Auto) Pending Absolute Neuts (auto) Pending Total Counted Pending Sodium 135 L Potassium 3.8 Chloride 104 Carbon Dioxide 22.0 Anion Gap 9 BUN 24 H Creatinine 0.78 Estim Creat Clear Calc 101.90 Est GFR (MDRD) Af Amer 129 Est GFR (MDRD) Non-Af 107 BUN/Creatinine Ratio 30.9 H Glucose 110 Calcium 8.6 POC Glucose 10/05/17 10/04/17 10/04/17 06:30 21:11 16:59 POC Glucose 117 H 196 H 172 H 10/04/17 11:17 POC Glucose 227 H Assessment/Plan Active and Suspected Problems Falls (Acute) Type 2 diabetes mellitus (Acute) Sepsis (Acute) Acute kidney injury (Acute) Type 2 diabetes mellitus with diabetic polyneuropathy (Acute) Abscess of right foot (Acute) Charcot's joint of right foot (Acute) PAD (peripheral artery disease) (Acute) Cellulitis, abscess right foot s/p I+D on 10/01/17 There is continued improvement noted to foot with antibiotic therapy and I+D procedure. Site is continues to heal, improvement noted everyday. No fever, no leukocytosis. Surgical culture with MSSA, previous culture also with MSSA; patient on Unasyn by Infectious Disease. Changed dressing. Applied wet to dry dressing consisting of normal saline solution and overlying gauze, kerlix, abd pad and gallito bandage. Keep clean, dry, and intact. No weightbearing right forefoot, ok to put weight on right heel as needed for transitions. Keep right foot elevated. Noninvasive lower extremity arterial study has been reviewed, appears to have normal ABIs but abnormal TBI to right foot consistent with small vessel disease - Dr.. Peñaloza from vascular surgery has seen patient and no plans for vascular intervention. Podiatry will continue to follow
[2017-10-05 07:26] LABS: POSITIVE COUNT NO; POSITIVE DIFFERENTIAL NO; POSITIVE MORPHOLOGY NO
[2017-10-05] MEDS: Ipratropium/Albuterol Sulfate 3 ML AMPUL.NEB INHALATION ×4 (07:28→19:18)
[2017-10-05] MEDS: Tamsulosin HCl 0.4 MG Capsule PO (08:10)
[2017-10-05] MEDS: Gabapentin 600 MG Tablet PO ×3 (08:10→17:19)
[2017-10-05] MEDS: Aspirin 81 MG TAB.CHEW PO (08:10)
[2017-10-05] MEDS: Senna/Docusate Sodium 1 Tablet 2 TABLET PO ×2 (08:40→22:00)
[2017-10-05] MEDS: Glucerna Shake 120 ML LIQUID PO ×3 (08:47→17:20)
[2017-10-05] MEDS: Lisinopril 20 MG Tablet PO ×2 (08:48→22:00)
[2017-10-05] MEDS: Metoprolol Tartrate 50 MG Tablet PO ×2 (08:48→22:00)
[2017-10-05] MEDS: Omega-3 Acid Ethyl Esters 1 GM Capsule 2 GM PO ×2 (08:49→22:00)
--- NOTE | 2017-10-05 10:58 | PCM.PN.ID ---
Patient Problems: Active and Suspected Problems Falls (Acute) Type 2 diabetes mellitus (Acute) Sepsis (Acute) Acute kidney injury (Acute) Type 2 diabetes mellitus with diabetic polyneuropathy (Acute) Abscess of right foot (Acute) Charcot's joint of right foot (Acute) PAD (peripheral artery disease) (Acute) Subjective: Foot sore but feeling better, no fever, no n/v/d. - Physical Exam General: Alert, Oriented x3, Cooperative Lungs: Clear to auscultation, Normal air movement Cardiovascular: Regular rate, Regular Rhythm Abdomen: Soft, Non Tender, Non-Distended Skin: No rashes, Incision - R foot wrapped Vital Signs Temp Pulse Resp BP Pulse Ox 98.3 F 78 16 146/74 H 98 10/05/17 08:50 10/05/17 08:50 10/05/17 08:50 10/05/17 08:50 10/05/17 08:50 Oxygen Flow Rate 2 Oxygen Delivery Method Room Air Weight: 81.4 kg Body Mass Index (BMI) 25.0 Intake and Output for Last 24 Hours 10/03/17 10/04/17 10/05/17 23:59 23:59 23:59 Intake Total 1203 / 1203 877 / 877 604 / 604 Output Total 1200 / 1200 950 / 950 700 / 700 Balance 3 / 3 -73 / -73 -96 / -96 Microbiology Past 72 Hours 10/01/17 Unknown Gram Stain - Final Wound - Aerobic & Anaerobic Swabs Wound Culture - Final Staphylococcus aureus 09/30/17 Unknown Gram Stain - Final Wound Abcess - Aerobic & Anaerobic Swabs Wound Culture - Final Staphylococcus aureus Anaerobic Culture - Preliminary No growth in 48 hours. 09/30/17 09:26 Blood Culture - Preliminary Blood Culture (Wb) - Left Hand No growth in 48 hours. Laboratory Tests Past 24 Hrs 10/05/17 10/05/17 06:00 06:00 WBC 6.5 RBC 3.86 L Hgb 11.7 L Hct 34.1 L MCV 88.3 MCH 30.3 MCHC 34.3 RDW 13.2 RDW Differential 41.5 Plt Count 193 MPV 10.2 Immature Gran % (Auto) 1.100 H Neut % (Auto) 53.8 Lymph % (Auto) 27.0 [place] % (Auto) 11.3 H Eos % (Auto) 6.2 H Baso % (Auto) 0.6 Absolute Neuts (auto) 3.5 Absolute Lymphs (auto) 1.75 Total Counted Not Reportable Sodium 135 L Potassium 3.8 Chloride 104 Carbon Dioxide 22.0 Anion Gap 9 BUN 24 H Creatinine 0.78 Estim Creat Clear Calc 101.90 Est GFR (MDRD) Af Amer 129 Est GFR (MDRD) Non-Af 107 BUN/Creatinine Ratio 30.9 H Glucose 110 Calcium 8.6 POC Glucose 10/05/17 10/04/17 10/04/17 06:30 21:11 16:59 POC Glucose 117 H 196 H 172 H 10/04/17 11:17 POC Glucose 227 H Route of nutrition/ use of supplements: [] Nutritional Intake: [] IV Site: [] Hart Catheter: [] - Assessment/Plan Antibiotics: [] Assessment/Plan: [] Active and Suspected Problems Falls (Acute) Diabetic foot infection (Acute) Type 2 diabetes mellitus (Acute) Sepsis (Acute) Acute kidney injury (Acute) Severe sepsis (leukocytosis, tachycardia, elevated lactate, GEMA) due to DM R foot abscess with MSSA - Much improved. Now s/p OR 10/[address] Marsh. No bone involvement seen. Cx with MSSA. Surg cx with same Narrowed vanc/zosyn to unasyn. Plan on d/c on po augmentin and doxy for 2 week course, stop date 10/15/17. will follow, d/w pillowcase folder.
--- NOTE | 2017-10-05 11:33 | CASEMGMT ---
Social Work Note Ada quiñones [facility] completed an on-site with the pt. Reports after evaluation that either [facility] or [facility] can accept the pt once medically stable for discharge. Placed call to the pt's Rober CASTELLANOS, and reviewed options. He opts for the pt to be placed at [facility]. Placed call to Roselia, jasper, at [facility] to confirm and she states they can accept. Inform that will notify physician and anticipate discharge this date. Will fax orders and confirms with Roselia once known. Attending physician notified. Placed call to pt's PR Glass Selector, Sue Ngo and notified of discharge plan. Left vm as Sue was unavailable. Plan: [facility] for rehabilitation. ADELAIDE Roman MEDICAL RECORDS TECHNICIAN
[2017-10-05] MEDS: Doxycycline 100 MG CAPSULE PO ×2 (12:09→22:00)
[2017-10-05] MEDS: Primidone 50 MG Tablet PO ×2 (12:09→17:19)
[2017-10-05 12:20] LABS: Bedside Glucose 160 mg/dL (70-110)
--- NOTE | 2017-10-05 16:12 | CASEMGMT ---
Social Work Note [facility] completed and submitted in the [facility]. Copies on chart and SNF packet. Placed call to area ambulance transportation companies as well as agencies in [place] and none are able to transport this date. Indicate that they may today. Placed call to Roselia to update that pt will not discharge until tomorrow. Placed call to pt's LG, Rober Houser, to update that pt will not discharge until tomorrow 10/06. SW to continue to follow and assist with discharge planning. Plan: [facility] for rehabilitation. Mariela Fairbanks INSPECTOR FINISHING PART TIME FLEXIBLE CLERK
[2017-10-05 17:16] LABS: Bedside Glucose 217 mg/dL (70-110)
--- NOTE | 2017-10-05 18:09 | PCM.PROGNOTE ---
Patient Problems: Active and Suspected Problems Acute kidney injury (Acute) Abscess of right foot (Acute) PAD (peripheral artery disease) (Acute) noel in the digits of the LE's Severe sepsis (Acute) due to cellulitis and abscess of charcot foot on the right with GEMA Thrombocytopenia (Acute) possibly related to Zosyn and heparin used for DVT prophylaxis - it resolved Subjective: Patient is a 62-year-old male with a past medical history of hypertension, diabetes mellitus type 2, diabetic peripheral neuropathy neuropathy, bipolar disorder, illicit drug use and hyperlipidemia who was admitted to [facility] on 09/30/2017 with a diagnosis of severe sepsis secondary to diabetic wound infection R foot with GEMA and lactic acidosis. He was started on vancomycin and Zosyn and podiatry and infectious disease were consulted. She has been seen in consultation by Dr. Marsh and Dr. Faulkner. Carlos went to surgery on 10/01/2017 for incision and drainage with debridement of a right foot abscess with necrosis. He has been seen by Dr. Peñaloza and there is no vacular intervention planned at this time. ABIs of the lower extremities were normal. Per Dr. Marsh's note today the capillary refill is less than 3 seconds and the erythema of the right foot is significantly less. Swelling is also decreased and there are no wrinkles in the distal lower extremity. There was no visible purulent discharge and no odor. Areas of debridement appeared to be granulating. Pt is ready to be discharged but can not go until 10/06 because he needs transported [facility] [place] [facility] He is afebrile and vital signs are stable. He is 96-98% saturated on room air. White blood cell count today is normal with 54% neutrophils and 6.2% eosinophils. Creatinine today is 0.78 with a BUN of 24. - Physical Exam General: Alert, Cooperative, No apparent distress, - - He is able to answer my questions but his speech is slow HEENT: Atraumatic Oral: Moist Mucosa, No Gingival or Mucosal Lesions/ Ulcerations Neck: Supple Lungs: Clear to auscultation, Diminished Cardiovascular: Regular rate, Regular Rhythm, Normal S1, Normal S2, No Gallop Abdomen: Bowel Sounds Present, Soft, Non Tender, Non-Distended, - - Denies diarrhea Extremities: No edema - The skin is now wrinkled since edema has resolved, No Calf Tenderness Skin: No rashes, No breakdown Musculoskeletal: No Muscle Wasting Neurological: Cranial nerves II-XII grossly intact, Neuro grossly intact Psych/Mental Status: Appropriate Vital Signs Temp Pulse Resp BP Pulse Ox 97.7 F L 75 21 H 122/64 H 96 10/05/17 14:50 10/05/17 15:17 10/05/17 15:17 10/05/17 14:50 10/05/17 14:50 Oxygen Flow Rate 2 Oxygen Delivery Method Room Air Weight: 179 lb 7.3 oz Body Mass Index (BMI) 25.0 Intake and Output for Last 24 Hours 10/03/17 10/04/17 10/05/17 23:59 23:59 23:59 Intake Total 1203 / 1203 877 / 877 604 / 604 Output Total 1200 / 1200 950 / 950 1425 / 1425 Balance 3 / 3 -73 / -73 -821 / -821 Microbiology Past 72 Hours 09/30/17 Unknown Gram Stain - Final Wound Abcess - Aerobic & Anaerobic Swabs Wound Culture - Final Staphylococcus aureus Anaerobic Culture - Final No anaerobic bacteria isolated. 10/01/17 Unknown Gram Stain - Final Wound - Aerobic & Anaerobic Swabs Wound Culture - Final Staphylococcus aureus Anaerobic Culture - Preliminary No growth in 48 hours. 09/30/17 09:26 Blood Culture - Final Blood Culture (Wb) - Left Hand No growth in 5 days. Laboratory Tests Past 24 Hrs 10/05/17 10/05/17 06:00 06:00 WBC 6.5 RBC 3.86 L Hgb 11.7 L Hct 34.1 L MCV 88.3 MCH 30.3 MCHC 34.3 RDW 13.2 RDW Differential 41.5 Plt Count 193 MPV 10.2 Immature Gran % (Auto) 1.100 H Neut % (Auto) 53.8 Lymph % (Auto) 27.0 [place] % (Auto) 11.3 H Eos % (Auto) 6.2 H Baso % (Auto) 0.6 Absolute Neuts (auto) 3.5 Absolute Lymphs (auto) 1.75 Total Counted Not Reportable Sodium 135 L Potassium 3.8 Chloride 104 Carbon Dioxide 22.0 Anion Gap 9 BUN 24 H Creatinine 0.78 Estim Creat Clear Calc 101.90 Est GFR (MDRD) Af Amer 129 Est GFR (MDRD) Non-Af 107 BUN/Creatinine Ratio 30.9 H Glucose 110 Calcium 8.6 POC Glucose 10/05/17 10/05/17 10/05/17 17:12 12:14 06:30 POC Glucose 217 H 160 H 117 H 10/04/17 21:11 POC Glucose 196 H Assessment/Plan Active and Suspected Problems Acute kidney injury (Acute) Abscess of right foot (Acute) PAD (peripheral artery disease) (Acute) noel in the digits of the LE's Severe sepsis (Acute) due to cellulitis and abscess of charcot foot on the right with GEMA Thrombocytopenia (Acute) possibly related to Zosyn and heparin used for DVT prophylaxis - it resolved Impressions 1. Severe sepsis secondary to diabetic foot infection with methicillin sensitive staph aureus. Patient had acute kidney injury and lactic acidosis at admission along with SIRS criteria. 2. Diabetes mellitus type 2 with peripheral polyneuropathy 3. Charcot foot on the right 4. Bipolar disorder-stable on Depakote and Seroquel Plan transfer to senior living home in [facility] when we can arrange transport with the ambulance company. Will need Augmentin and doxycycline through 10/15/[address] Stokes. Nonweightbearing to the right foot Code Visit Inpatient E&M: 99046 Subs Hosp L2
--- NOTE | 2017-10-05 18:28 | PN_ITS ---
Patient Problems: Active and Suspected Problems Acute kidney injury (Acute) Abscess of right foot (Acute) PAD (peripheral artery disease) (Acute) noel in the digits of the LE's Severe sepsis (Acute) due to cellulitis and abscess of charcot foot on the right with GEMA Thrombocytopenia (Acute) possibly related to Zosyn and heparin used for DVT prophylaxis - it resolved Subjective: Patient is a 62-year-old male with a past medical history of hypertension, diabetes mellitus type 2, diabetic peripheral neuropathy neuropathy, bipolar disorder, illicit drug use and hyperlipidemia who was admitted to [facility] on 09/30/2017 with a diagnosis of severe sepsis secondary to diabetic wound infection R foot with GEMA and lactic acidosis. He was started on vancomycin and Zosyn and podiatry and infectious disease were consulted. She has been seen in consultation by Dr. Marsh and Dr. Faulkner. Carlos went to surgery on 10/01/2017 for incision and drainage with debridement of a right foot abscess with necrosis. He has been seen by Dr. Peñaloza and there is no vacular intervention planned at this time. ABIs of the lower extremities were normal. Per Dr. Marsh's note today the capillary refill is less than 3 seconds and the erythema of the right foot is significantly less. Swelling is also decreased and there are no wrinkles in the distal lower extremity. There was no visible purulent discharge and no odor. Areas of debridement appeared to be granulating. Pt is ready to be discharged but can not go until 10/06 because he needs [facility] [place] [facility] He is afebrile and vital signs are stable. He is 96-98% saturated on room air. White blood cell count today is normal with 54% neutrophils and 6.2% eosinophils. Creatinine today is 0.78 with a BUN of 24. - Physical Exam General: Alert, Cooperative, No apparent distress, - - He is able to answer my questions but his speech is slow HEENT: Atraumatic Oral: Moist Mucosa, No Gingival or Mucosal Lesions/ Ulcerations Neck: Supple Lungs: Clear to auscultation, Diminished Cardiovascular: Regular rate, Regular Rhythm, Normal S1, Normal S2, No Gallop Abdomen: Bowel Sounds Present, Soft, Non Tender, Non-Distended, - - Denies diarrhea Extremities: No edema - The skin is now wrinkled since edema has resolved, No Calf Tenderness Skin: No rashes, No breakdown Musculoskeletal: No Muscle Wasting Neurological: Cranial nerves II-XII grossly intact, Neuro grossly intact Psych/Mental Status: Appropriate Vital Signs Temp Pulse Resp BP Pulse Ox 97.7 F L 75 21 H 122/64 H 96 10/05/17 14:50 10/05/17 15:17 10/05/17 15:17 10/05/17 14:50 10/05/17 14:50 Oxygen Flow Rate 2 Oxygen Delivery Method Room Air Weight: 179 lb 7.3 oz Body Mass Index (BMI) 25.0 Intake and Output for Last 24 Hours 10/03/17 10/04/17 10/05/17 23:59 23:59 23:59 Intake Total 1203 / 1203 877 / 877 604 / 604 Output Total 1200 / 1200 950 / 950 1425 / 1425 Balance 3 / 3 -73 / -73 -821 / -821 Microbiology Past 72 Hours 09/30/17 Unknown Gram Stain - Final Wound Abcess - Aerobic & Anaerobic Swabs Wound Culture - Final Staphylococcus aureus Anaerobic Culture - Final No anaerobic bacteria isolated. 10/01/17 Unknown Gram Stain - Final Wound - Aerobic & Anaerobic Swabs Wound Culture - Final Staphylococcus aureus Anaerobic Culture - Preliminary No growth in 48 hours. 09/30/17 09:26 Blood Culture - Final Blood Culture (Wb) - Left Hand No growth in 5 days. Laboratory Tests Past 24 Hrs 10/05/17 10/05/17 06:00 06:00 WBC 6.5 RBC 3.86 L Hgb 11.7 L Hct 34.1 L MCV 88.3 MCH 30.3 MCHC 34.3 RDW 13.2 RDW Differential 41.5 Plt Count 193 MPV 10.2 Immature Gran % (Auto) 1.100 H Neut % (Auto) 53.8 Lymph % (Auto) 27.0 [place] % (Auto) 11.3 H Eos % (Auto) 6.2 H Baso % (Auto) 0.6 Absolute Neuts (auto) 3.5 Absolute Lymphs (auto) 1.75 Total Counted Not Reportable Sodium 135 L Potassium 3.8 Chloride 104 Carbon Dioxide 22.0 Anion Gap 9 BUN 24 H Creatinine 0.78 Estim Creat Clear Calc 101.90 Est GFR (MDRD) Af Amer 129 Est GFR (MDRD) Non-Af 107 BUN/Creatinine Ratio 30.9 H Glucose 110 Calcium 8.6 POC Glucose 10/05/17 10/05/17 10/05/17 17:12 12:14 06:30 POC Glucose 217 H 160 H 117 H 10/04/17 21:11 POC Glucose 196 H Assessment/Plan Active and Suspected Problems Acute kidney injury (Acute) Abscess of right foot (Acute) PAD (peripheral artery disease) (Acute) noel in the digits of the LE's Severe sepsis (Acute) due to cellulitis and abscess of charcot foot on the right with GEMA Thrombocytopenia (Acute) possibly related to Zosyn and heparin used for DVT prophylaxis - it resolved Impressions 1. Severe sepsis secondary to diabetic foot infection with methicillin sensitive staph aureus. Patient had acute kidney injury and lactic acidosis at admission along with SIRS criteria. 2. Diabetes mellitus type 2 with peripheral polyneuropathy 3. Charcot foot on the right 4. Bipolar disorder-stable on Depakote and Seroquel [facility] when we can arrange transport with the ambulance company. Will need Augmentin and doxycycline through 10/15/[address] Stokes. Nonweightbearing to the right foot Code Visit Inpatient E&M: 26391 Subs Hosp L2
[2017-10-05 21:36] LABS: Bedside Glucose 249 mg/dL (70-110)
[2017-10-05] MEDS: Divalproex (ER) 500 MG Tablet 2000 MG PO (21:59)
[2017-10-05] MEDS: Atorvastatin Calcium 20 MG Tablet PO (22:00)
[2017-10-05] MEDS: QUEtiapine 100 MG Tablet 700 MG PO (22:00)
[2017-10-06] VITALS (9 sets, daily range): BP systolic 125–162; BP diastolic 64–83; PULSE 45–78; RESP 16–20; TEMP 36.4–36.6; O2SAT 95–100
[2017-10-06 01:31] LABS: Bedside Glucose 202 mg/dL (70-110)
[2017-10-06 06:50] LABS: Bedside Glucose 149 mg/dL (70-110)
[2017-10-06] MEDS: Ipratropium/Albuterol Sulfate 3 ML AMPUL.NEB INHALATION ×4 (06:50→18:59)
[2017-10-06 07:53] LABS: Valproic Acid (Depakene) Level 57 ug/mL (50-100)
[2017-10-06] MEDS: Aspirin 81 MG TAB.CHEW PO (09:36)
[2017-10-06] MEDS: Tamsulosin HCl 0.4 MG Capsule PO (09:36)
[2017-10-06] MEDS: Primidone 50 MG Tablet PO ×2 (09:36→17:32)
[2017-10-06] MEDS: Gabapentin 600 MG Tablet PO ×3 (09:37→17:32)
[2017-10-06] MEDS: Doxycycline 100 MG CAPSULE PO (09:38)
[2017-10-06] MEDS: Omega-3 Acid Ethyl Esters 1 GM Capsule 2 GM PO (09:38)
[2017-10-06] MEDS: Lisinopril 20 MG Tablet PO (09:39)
[2017-10-06] MEDS: Metoprolol Tartrate 50 MG Tablet PO (09:44)
[2017-10-06] MEDS: Glucerna Shake 120 ML LIQUID PO ×3 (09:52→17:34)
[2017-10-06 09:56] LABS: Bedside Glucose 209 mg/dL (70-110)
--- NOTE | 2017-10-06 10:01 | CASEMGMT ---
Social Work Note Medlist and scripts need to be completed yet. Attending physician notified. Convalescent 7000 completed and submitted in the [facility]. Copies on chart and in SNF packet. Plan: [facility] Longterm for rehabilitation. ADELAIDE RomanW
--- NOTE | 2017-10-06 11:29 | PCM.TXEXTCAR ---
- Diet 10/01/17 19:15 Diet: Cardiac: 2100 calorie ADA Is pt able to select menu?: No Diet Comments: AND low cholesterol. pt edentulous- needs soft foods only please - Routine Orders/Code Status Enema Type: Fleetz Enema Frequency: Daily PRN Suppository Type: Dulcolax 10mg Suppository Frequency: Daily PRN O2 Frequency: PRN Keep PO Greater than or Equal to (%): 88 Routine Lab Work: - - ESR, CRP, CBC with Diff, CMP in 1 week - Wound(s) left elbow Wound Type: Abrasion bottom right foot Wound Type: abrasion/ diabetic wound right mid bottom of foot Wound Type: Surgical Incision Dressing Change: 4X4, KERLIX, ADAPTIC, JOANNA RLE Wound Type: Surgical Incision top of head Wound Type: Skin Tear - Therapies Weight Bearing: Non weight bearing Extremity Affected:: Right Lower Physical Therapy: Eval and Treat Occupational Therapy: Eval and Treat - Problem/Diagnosis (1) Abscess of right foot Status: Acute Current Visit: Yes (2) Acute kidney injury Status: Acute Current Visit: Yes (3) Charcot's joint of right foot Status: Chronic Current Visit: Yes (4) PAD (peripheral artery disease) Status: Acute Comment: noel in the digits of the LE's Current Visit: Yes (5) Type 2 diabetes mellitus with diabetic polyneuropathy Status: Chronic Current Visit: Yes (6) Diabetic foot infection Status: Chronic Current Visit: Yes (7) Hypertension Status: Chronic Current Visit: Yes (8) Severe sepsis Status: Acute Comment: due to cellulitis and abscess of charcot foot on the right with GEMA Current Visit: Yes (9) Thrombocytopenia Status: Acute Comment: possibly related to Zosyn and heparin used for DVT prophylaxis - it resolved Current Visit: Yes - Allergies/Procedures Done in Hospital Allergies/Adverse Reactions: Allergies HYDROCODONE Allergy (Uncoded 09/30/17 07:54) Unknown Procedures: - - 10/01/2017-I&D with debridement of right foot abscess by Dr. Marsh Venous ultrasound right lower extremity negative for DVT Vascular studies BL LE's with PVD, primarily in the digits with no significant large vessel involvement. Pt seen by Dr. Peañloza, vascular surgery, no intervention planned at this time - Type of Care/Length of Stay Estimated LOS: Convalescent Care Less Than 30 days Type of Care Needed: Skilled Rehab Potential: Fair Prognosis: Fair - Additional Orders/Day of Discharge Additional Orders: accuchecks AMANDAD, AC and HS. the last day of antibiotics will be 10/15 and then discontinue. the wound culture grew MSSA H&P will serve as current which was dated: 09/30/17 Day of Discharge: 10/06/17 - Dietary and Speech Recommendations Dietitian Recommendations/Changes: Rec cardiac/low cholesterol, 2000 calorie diet w/ soft foods as pt edentulous. Continue Glucerna 120 mL 4x/day for additional calories/protein if consumed. - Follow Up Care Primary Care Physician: Care Physician,No Primary [Primary Care Provider] - [facility]
--- NOTE | 2017-10-06 11:49 | PCM.DC.SUM ---
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 Acute kidney injury (Acute) - due to severe sepsis Abscess of right foot (Acute) - due to MSSA Thrombocytopenia (Acute) possibly related to Zosyn and heparin used for DVT prophylaxis - it resolved - Secondary Discharge Diagnosis Chronic Problems Diabetic foot infection (Chronic) Hypertension (Chronic) Type 2 diabetes mellitus with diabetic polyneuropathy (Chronic) Charcot's joint of right foot (Chronic) PAD (peripheral artery disease) (chronic) noel in the digits of the LE's Hypertension Hyperlipidemia Bipolar disorder Hospital Course and Treatment Imaging Results: Clinical Impression(s) from Imaging Studies Chest X-Ray 09/30/17 08:03 IMPRESSION: The lungs are clear. Electronically Signed: Abel Casas MD at 9:23 EST Tel [phone], Service support , Foot X-Ray 09/30/17 08:05 IMPRESSION: Diffuse soft tissue swelling. Electronically Signed: Abel Casas MD at 9:25 EST Tel [phone], Service support , Lower Extremity CT 09/30/17 09:49 IMPRESSION: No discrete bony erosion. Degenerative changes, as detailed above. Diffuse soft tissue edema, without discrete drainable abscess. Electronically Signed: Asad Alford DO at 10:35 EST Tel , Service support , Foot X-Ray 09/30/17 14:10 IMPRESSION: Diffuse soft tissue swelling. Electronically Signed: Abel Casas MD at 14:43 EST Tel [phone], Service support , Microbiology 10/01/17 Unknown Wound - Aerobic & Anaerobic Swabs Gram Stain - Final 10/01/17 Unknown Wound - Aerobic & Anaerobic Swabs Wound Culture - Final Staphylococcus aureus - methicillin sensitive 10/01/17 Unknown Wound - Aerobic & Anaerobic Swabs Anaerobic Culture - Final No anaerobic bacteria isolated. 09/30/17 Unknown Wound Abcess - Aerobic & Anaerobic Swabs Gram Stain - Final 09/30/17 Unknown Wound Abcess - Aerobic & Anaerobic Swabs Wound Culture - Final Staphylococcus aureus methicillin sensitive Laboratory Results - last 24 hr 10/05/17 10/05/17 10/05/17 12:14 17:12 21:30 Valproic Acid POC Glucose 160 H 217 H 249 H 10/06/17 10/06/17 10/06/17 01:22 06:46 07:10 Valproic Acid 57 POC Glucose 202 H 149 H 10/06/17 09:47 Valproic Acid POC Glucose 209 H 09/30/17 Unknown Wound Abcess - Aerobic & Anaerobic Swabs Anaerobic Culture - Final No anaerobic bacteria isolated. 09/30/17 09:26 Blood Culture (Wb) - Left Hand Blood Culture - Final No growth in 5 days. 09/30/17 08:13 Blood Culture (Wb) - Anticubital Left Blood Culture - Final No growth in [address] Robi Marsh-podiatry Dr. Crow Stokes-infectious disease Operations: - - I&D with debridement of R foot abscess 10/01/[address] Marsh Summary of Care Provided: Patient is a 62-year-old male with a past medical history of hypertension, diabetes mellitus type 2, diabetic peripheral neuropathy, bipolar disorder, past illicit drug use and hyperlipidemia who was admitted to [facility] on 09/30/2017 with a diagnosis of severe sepsis secondary to diabetic wound infection R foot with GEMA and lactic acidosis. He was started on vancomycin and Zosyn and podiatry and infectious disease were consulted. He has been seen in consultation by Dr. Marsh and Dr. Faulkner. He went to surgery on 10/01/2017 for incision and drainage with debridement of a right foot abscess with necrosis. He was seen by Dr. Peñaloza from vascular surgery and there is no vacular intervention planned at this time. ABIs of the lower extremities showed no significant large vessel disease but he does have significant disease in the small vessels of the digits. Wound culture was positive for methicillin sensitive staph aureus. Dr. Stokes recommended Augmentin and doxycycline at discharge which should continue through 10/15/2017. Acute kidney injury resolved with treatment of the infection and hydration. The creatinine on 10/05/2017 was 0.78, down from 1.77 at admission. White blood cell count on 10/05/2017 was 6.5, down from 18.6 at admission. His sed rate on 09/30/2017 was 49 and the CRP was 147. At the time of DC on 09/26/17 he is alert and cooperative. He appears in no distress. The lungs are CTA but diminished. He has no diarrhea and denies any mouth pain or pain with swallowing. the abd is soft, ND and NT and he has no diarrhea. There were 3 incisions made into the right foot at the time of surgical debridement. The erythema has significantly improved although there is still mild erythema. Swelling is decreased and he now has some wrinkling of the skin. There is no purulent discharge from the wound and no malodor. The areas of debridement have granulation tissue present. Pedal pulses are good in the right foot. He was discharged to SNF for wound care. He is non-weight bearing on the R foot. Transport was arranged to the [facility]dc facility by the social security specialist. Home Medications: Medications to take at Discharge Aspirin 81 mg PO DAILY 09/30/17 Capsaicin 1 dose TOPICAL TID PRN PRN 09/30/17 Cholecalciferol (VIT D3) [Vitamin D3] 3,000 unit PO DAILY 09/30/17 Diclofenac 4 gm TOPICAL BID 09/30/17 Divalproex Sodium [Depakote ER] 4 tab PO QHS 09/30/17 Hydrochlorothiazide [Hctz] 25 mg PO DAILY 09/30/17 Lisinopril [Zestril] 20 mg PO BID 09/30/17 [place]-3 Fatty Acids/Fish Oil [Fish Oil 1,000 mg Capsule] 2 cap PO BID 09/30/17 Primidone [Mysoline] 50 mg PO BID 09/30/17 Simvastatin 40 tab PO QHS 09/30/17 Tamsulosin HCl [Flomax] 1 tab PO QHS 09/30/17 Acetaminophen [Tylenol Tablet] 650 mg PO Q4H PRN PRN tablet 10/06/17 Amlodipine [Norvasc] 5 mg PO DAILY #1 tablet 10/06/17 Amox/Clavulanate Tablet [Augmentin Tablet] 875 mg PO Q12H #18 tab 10/06/17 Doxycycline 100 mg PO BID #18 cap 10/06/17 Gabapentin [Neurontin] 600 mg PO TIDCM tablet 10/06/17 Insulin Aspart [Novolog Flexpen] 23 units SC LUNCH #0 10/06/17 Insulin Aspart [Novolog Flexpen] 25 units SC DINNER #0 10/06/17 Insulin Aspart [Novolog Flexpen] 35 units SC BREAKFAST #0 10/06/17 Insulin Detemir [Levemir FlexPen] 50 units SC QHS insuln.pen 10/06/17 Magnesium Hydroxide [Milk Of Magnesia] 30 ml PO DAILY PRN PRN udc 10/06/17 Metoprolol Tartrate [Lopressor (beta ramy)] 50 mg PO BID tablet 10/06/17 Nicotine [Nicoderm Cq] 21 mg TRANSDERM. DAILY patch 10/06/17 Psyllium [Metamucil] 1 packet PO DAILY PRN PRN packet 10/06/17 Quetiapine Fumarate [Seroquel] 700 mg PO QHS tablet 10/06/17 Senna/Docusate Sodium [Senokot-S] 2 tablet PO BID PRN tablet 10/06/17 Following Prescrptions Were Given to Patient: Amlodipine [Norvasc] 5 mg PO DAILY #1 tablet Amox/Clavulanate Tablet [Augmentin Tablet] 875 mg PO Q12H #18 tab Doxycycline 100 mg PO BID #18 cap Primary Care Physician: Care Physician,No Primary [Primary Care Provider] - [facility] Minutes spent on discharge:: 45 Patient Condition:: Good Meaningful Use Info Meaningful Use Diagnoses (Choose all that apply): None applicable Code Visit Inpatient E&M: 32079 Disch Hosp
[2017-10-06] MEDS: Senna/Docusate Sodium 1 Tablet 2 TABLET PO (11:52)
[2017-10-06 12:01] LABS: Bedside Glucose 192 mg/dL (70-110)
--- NOTE | 2017-10-06 12:07 | DS.PCM_ITS ---
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 Acute kidney injury (Acute) - due to severe sepsis Abscess of right foot (Acute) - due to MSSA Thrombocytopenia (Acute) possibly related to Zosyn and heparin used for DVT prophylaxis - it resolved - Secondary Discharge Diagnosis Chronic Problems Diabetic foot infection (Chronic) Hypertension (Chronic) Type 2 diabetes mellitus with diabetic polyneuropathy (Chronic) Charcot's joint of right foot (Chronic) PAD (peripheral artery disease) (chronic) noel in the digits of the LE's Hypertension Hyperlipidemia Bipolar disorder Hospital Course and Treatment Imaging Results: Clinical Impression(s) from Imaging Studies Chest X-Ray 09/30/17 08:03 IMPRESSION: The lungs are clear. Electronically Signed: Abel Casas MD at 9:23 EST Tel [phone], Service support , Foot X-Ray 09/30/17 08:05 IMPRESSION: Diffuse soft tissue swelling. Electronically Signed: Abel Casas MD at 9:25 EST Tel [phone], Service support , Lower Extremity CT 09/30/17 09:49 IMPRESSION: No discrete bony erosion. Degenerative changes, as detailed above. Diffuse soft tissue edema, without discrete drainable abscess. Electronically Signed: Asad Alford DO at 10:35 EST Tel , Service support , Foot X-Ray 09/30/17 14:10 IMPRESSION: Diffuse soft tissue swelling. Electronically Signed: Abel Casas MD at 14:43 EST Tel [phone], Service support , Microbiology 10/01/17 Unknown Wound - Aerobic & Anaerobic Swabs Gram Stain - Final 10/01/17 Unknown Wound - Aerobic & Anaerobic Swabs Wound Culture - Final Staphylococcus aureus - methicillin sensitive 10/01/17 Unknown Wound - Aerobic & Anaerobic Swabs Anaerobic Culture - Final No anaerobic bacteria isolated. 09/30/17 Unknown Wound Abcess - Aerobic & Anaerobic Swabs Gram Stain - Final 09/30/17 Unknown Wound Abcess - Aerobic & Anaerobic Swabs Wound Culture - Final Staphylococcus aureus methicillin sensitive Laboratory Results - last 24 hr 10/05/17 10/05/17 10/05/17 12:14 17:12 21:30 Valproic Acid POC Glucose 160 H 217 H 249 H 10/06/17 10/06/17 10/06/17 01:22 06:46 07:10 Valproic Acid 57 POC Glucose 202 H 149 H 10/06/17 09:47 Valproic Acid POC Glucose 209 H 09/30/17 Unknown Wound Abcess - Aerobic & Anaerobic Swabs Anaerobic Culture - Final No anaerobic bacteria isolated. 09/30/17 09:26 Blood Culture (Wb) - Left Hand Blood Culture - Final No growth in 5 days. 09/30/17 08:13 Blood Culture (Wb) - Anticubital Left Blood Culture - Final No growth in [address] Robi Marsh-podiatry Dr. Crow Stokes-infectious disease Operations: - - I&D with debridement of R foot abscess 10/01/[address] Marsh Summary of Care Provided: Patient is a 62-year-old male with a past medical history of hypertension, diabetes mellitus type 2, diabetic peripheral neuropathy, bipolar disorder, past illicit drug use and hyperlipidemia who was admitted to [facility] on 09/30/2017 with a diagnosis of severe sepsis secondary to diabetic wound infection R foot with GEMA and lactic acidosis. He was started on vancomycin and Zosyn and podiatry and infectious disease were consulted. He has been seen in consultation by Dr. Marsh and Dr. Faulkner. He went to surgery on 10/01/2017 for incision and drainage with debridement of a right foot abscess with necrosis. He was seen by Dr. Peñaloza from vascular surgery and there is no vacular intervention planned at this time. ABIs of the lower extremities showed no significant large vessel disease but he does have significant disease in the small vessels of the digits. Wound culture was positive for methicillin sensitive staph aureus. Dr. Stokes recommended Augmentin and doxycycline at discharge which should continue through 10/15/2017. Acute kidney injury resolved with treatment of the infection and hydration. The creatinine on 10/05/2017 was 0.78, down from 1.77 at admission. White blood cell count on 10/05/2017 was 6.5, down from 18.6 at admission. His sed rate on 09/30/2017 was 49 and the CRP was 147. At the time of DC on 09/26/17 he is alert and cooperative. He appears in no distress. The lungs are CTA but diminished. He has no diarrhea and denies any mouth pain or pain with swallowing. the abd is soft, ND and NT and he has no diarrhea. There were 3 incisions made into the right foot at the time of surgical debridement. The erythema has significantly improved although there is still mild erythema. Swelling is decreased and he now has some wrinkling of the skin. There is no purulent discharge from the wound and no malodor. The areas of debridement have granulation tissue present. Pedal pulses are good in the right foot. He was discharged to SNF for wound care. He is non-weight bearing on the R foot. Transport was arranged to the care home facility by the 7th grade social studies teacher. Home Medications: Medications to take at Discharge Aspirin 81 mg PO DAILY 09/30/17 Capsaicin 1 dose TOPICAL TID PRN PRN 09/30/17 Cholecalciferol (VIT D3) [Vitamin D3] 3,000 unit PO DAILY 09/30/17 Diclofenac 4 gm TOPICAL BID 09/30/17 Divalproex Sodium [Depakote ER] 4 tab PO QHS 09/30/17 Hydrochlorothiazide [Hctz] 25 mg PO DAILY 09/30/17 Lisinopril [Zestril] 20 mg PO BID 09/30/17 Bear-3 Fatty Acids/Fish Oil [Fish Oil 1,000 mg Capsule] 2 cap PO BID 09/30/17 Primidone [Mysoline] 50 mg PO BID 09/30/17 Simvastatin 40 tab PO QHS 09/30/17 Tamsulosin HCl [Flomax] 1 tab PO QHS 09/30/17 Acetaminophen [Tylenol Tablet] 650 mg PO Q4H PRN PRN tablet 10/06/17 Amlodipine [Norvasc] 5 mg PO DAILY #1 tablet 10/06/17 Amox/Clavulanate Tablet [Augmentin Tablet] 875 mg PO Q12H #18 tab 10/06/17 Doxycycline 100 mg PO BID #18 cap 10/06/17 Gabapentin [Neurontin] 600 mg PO TIDCM tablet 10/06/17 Insulin Aspart [Novolog Flexpen] 23 units SC LUNCH #0 10/06/17 Insulin Aspart [Novolog Flexpen] 25 units SC DINNER #0 10/06/17 Insulin Aspart [Novolog Flexpen] 35 units SC BREAKFAST #0 10/06/17 Insulin Detemir [Levemir FlexPen] 50 units SC QHS insuln.pen 10/06/17 Magnesium Hydroxide [Milk Of Magnesia] 30 ml PO DAILY PRN PRN udc 10/06/17 Metoprolol Tartrate [Lopressor (beta ramy)] 50 mg PO BID tablet 10/06/17 Nicotine [Nicoderm Cq] 21 mg TRANSDERM. DAILY patch 10/06/17 Psyllium [Metamucil] 1 packet PO DAILY PRN PRN packet 10/06/17 Quetiapine Fumarate [Seroquel] 700 mg PO QHS tablet 10/06/17 Senna/Docusate Sodium [Senokot-S] 2 tablet PO BID PRN tablet 10/06/17 Following Prescrptions Were Given to Patient: Amlodipine [Norvasc] 5 mg PO DAILY #1 tablet Amox/Clavulanate Tablet [Augmentin Tablet] 875 mg PO Q12H #18 tab Doxycycline 100 mg PO BID #18 cap Primary Care Physician: Care Physician,No Primary [Primary Care Provider] - [facility] Minutes spent on discharge:: 45 Patient Condition:: Good Meaningful Use Info Meaningful Use Diagnoses (Choose all that apply): None applicable Code Visit Inpatient E&M: 66516 Disch Hosp
[2017-10-06] MEDS: Acetaminophen 325 MG Tablet 650 MG PO ×2 (12:46→17:34)
--- NOTE | 2017-10-06 13:27 | CASEMGMT ---
Social Work Note [facility] who do not have the time available for this transport. Placed call to [facility] who states they can for $262.00 and the family would need to have this up front they will not bill them. Placed call to adoption services manager who contacted Annamaria and left a vm regarding situation. Placed call to the [facility] to inquire if they would provide any assistance with transportation. Left vm and will await a return phone call. Also placed call to the pt's SWMaria G, at the [facility] to inquire about any suggestions or additional services regarding transport they may offer. Left vm for Roselia at [facility] to see if they had suggestions as well. Will await a return phone call. ADELAIDE RomanW
--- NOTE | 2017-10-06 14:07 | CASEMGMT ---
Social Work Note Call from Maria G at the [facility] stating that the [facility] is unable to provide any assistance with transportation. States that unless the family is willing to transport they would need to pay this cost or have the pt placed within a 30 mile radius of the hospital. States that she thinks the pt should stay within [place] as the jail is there. Correct her and inform her that Sue had suggested to the brother that he be placed closer to him and now the pt has been sitting here for multiple days because they pushed for SNF and we had to do on-site because of his mental health and substance abuse history. Maria G apologizes and states she will contact the brother to notify that the [facility] will not assist with transportation. Placed call to Rober and left vm as he was unavailable. Explain that his options are to provide a credit card number for transport to be billed to, to privately transport the pt to SNF or to have him placed at a facility in [place]. Will await a return phone call. Call from Rober stating that he spoke with Maria G and wanted to know what was going on. Informed him EDGAR left a message, but again explained the above. Rober states he will call Maria G to discuss with again and call EDGAR back in approximately 5 minutes. Will await a return phone call from EMANUEL. ADELAIDE Roman
--- NOTE | 2017-10-06 14:51 | CASEMGMT ---
Social Work Note Call back from the . Rober yung after speaking with [facility] G at the [facility] he has decided to look at facilities in [place]. Placed call to [facility] and left . Faxed referrals to [facility], [facility], [facility], [facility] Dunlap and [facility]len Agrawal. Will continue to follow and assist with discharge planning. Mariela Fairbanks, FORECLOSURE HOME INSPECTOR PLASTIC EYE TECHNICIAN
--- NOTE | 2017-10-06 15:12 | CASEMGMT ---
Social Work Note Placed call to [facility], no beds available until 10/08. Placed call to Chel at [facility] who states that they have availability, but she would need to review clinicals. Placed call to Dorothea of [facility] as [facility] who had done an on-site had approved him for placement at their facilities. Mariela moura [facility] to review. Also placed call to Shirley at [facility] and left vm, but know earlier today they did not have beds. Faxed referral to [facility] as well. Mariela Fairbanks, FREIGHT FLOW SALES LEADER ENDLESS TRACK VEHICLE MECHANIC
[2017-10-06] MEDS: 0.9% NaCl Peripheral Flush Adult/Peds IV (15:38)
--- NOTE | 2017-10-06 15:43 | CASEMGMT ---
Social Work Note Call to Mariela moura [facility] who states that she reviewed the referral and had sent to her linux systems administrator and DON who are currently reviewing. She will call when a determination is made. SW to continue to follow and assist with discharge planning. Mariela Fairbanks, WET SILK HANGER FOSTER PARENT
--- NOTE | 2017-10-06 15:52 | CASEMGMT ---
Social Work Note Call from Chel at [facility] stating that they would have a bed ready tomorrow. Inform that SW is awaiting to hear from another facility and if they can accept today the pt will go there if they are not able to accept they can tomorrow. Will keep Chel updated. Mariela Fairbanks, ENVIRONMENTAL EPIDEMIOLOGIST HEMATOLOGY NURSE
--- NOTE | 2017-10-06 16:12 | CASEMGMT ---
Social Work Note Call from Mariela at [facility] stating that they can accept this date. Faxed Transfer Summary, medlist and scripts to SNF. Copies on chart and originals in SNF packet. Transportation setup at 19:00 through [facility] via cot. Notified [facility] [place] of change in disposition. Notified Chel at [facility] pt was discharging today. Notified [facility] of discharge time. RN and LG notified of discharge time. Plan: [facility] for rehabilitation. Convalescent 7000 submitted. Transport setup through [facility] via cot. ADELAIDE Roman WIRE DROPPER
[2017-10-06 16:51] LABS: Bedside Glucose 148 mg/dL (70-110)
--- NOTE | 2017-10-06 17:04 | CASEMGMT ---
Social Work Note New Convalescent 7000 completed and submitted in the [facility] due to SNF change. New form placed in chart and SNF packet. Left with Pre-Admission review at [facility] to update on this change. ADELAIDE Roman GRAPHIC DESIGN PROFESSOR
--- NOTE | 2017-10-06 17:13 | PCM.PROGNOTE ---
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 His pain is fluctuating and is at worst an 8 out of 10 however it has improved since surgery. He will be transferred to [facility] facility this evening. He denies calf pain shortness of breath or chest pain. He is kept his dressing clean and intact. - Physical Exam General: Alert, Cooperative Extremities: No cyanosis, Capillary Refill Less than 3 Seconds - All digits right foot, No Calf Tenderness - Negative Ibrahima and Wright sign bilateral, Diminished Peripheral Pulses, Edema - Decreased right foot Skin: Incision - Plantar medial right foot and to dorsal smaller incision x2 to the right foot. There is no odor, purulence, or infection on expression to the right foot. The deeper wound beds are already starting to coapt. There is only minimal hematogenous drainage noting on and her dressings. Otherwise his skin is atrophic and hairless right foot Musculoskeletal: No Tenderness to Palpation of Joints or Extremities, Muscle Wasting, - - Minimal discomfort with wound manipulation right foot Neurological: - - Lack of epicritic sensation to light touch the right foot Psych/Mental Status: Normal Affect, Appropriate Vital Signs Temp Pulse Resp BP Pulse Ox 97.6 F L 60 16 136/69 H 100 10/06/17 15:46 10/06/17 15:46 10/06/17 15:46 10/06/17 15:46 10/06/17 15:46 Oxygen Flow Rate 2 Oxygen Delivery Method Room Air Weight: 81.4 kg Body Mass Index (BMI) 25.0 Intake and Output for Last 24 Hours 10/04/17 10/05/17 10/06/17 23:59 23:59 23:59 Intake Total 877 / 877 1216 / 1216 600 / 600 Output Total 950 / 950 1974 / 1974 1250 / 1250 Balance -73 / -73 -759 / -759 -650 / -650 Microbiology Past 72 Hours 10/01/17 Unknown Gram Stain - Final Wound - Aerobic & Anaerobic Swabs Wound Culture - Final Staphylococcus aureus Anaerobic Culture - Final No anaerobic bacteria isolated. 09/30/17 Unknown Gram Stain - Final Wound Abcess - Aerobic & Anaerobic Swabs Wound Culture - Final Staphylococcus aureus Anaerobic Culture - Final No anaerobic bacteria isolated. 09/30/17 09:26 Blood Culture - Final Blood Culture (Wb) - Left Hand No growth in 5 days. 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 No fever, no leukocytosis. Surgical culture with MSSA, previous culture also with MSSA; patient on Unasyn by Infectious Disease. Changed dressing with wet to dry gauze consisting of normal saline solution and overlying gauze, kerlix, abd pad and gallito bandage. To keep clean, dry, and intact. No weightbearing right forefoot, ok to put weight on right heel as needed for transitions. Keep right foot elevated. Noninvasive lower extremity arterial study has been reviewed, appears to have normal ABIs but abnormal TBI to right foot consistent with small vessel disease - Dr. Peñaloza from vascular surgery has seen patient and has no plans for vascular intervention. Podiatry will continue to follow while in house. Upon transfer to the [facility] facility, he is to follow-up with Dr. acosta within [facility]; [phone]. Discharge order recommendations will be placed electronically prior to discharge. Valery Faulkner [facility] [phone]
--- NOTE | 2017-10-06 17:18 | PN_ITS ---
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 His pain is fluctuating and is at worst an 8 out of 10 however it has improved since surgery. He will be transferred to [facility] facility this evening. He denies calf pain shortness of breath or chest pain. He is kept his dressing clean and intact. - Physical Exam General: Alert, Cooperative Extremities: No cyanosis, Capillary Refill Less than 3 Seconds - All digits right foot, No Calf Tenderness - Negative Irbahima and Wright sign bilateral, Diminished Peripheral Pulses, Edema - Decreased right foot Skin: Incision - Plantar medial right foot and to dorsal smaller incision x2 to the right foot. There is no odor, purulence, or infection on expression to the right foot. The deeper wound beds are already starting to coapt. There is only minimal hematogenous drainage noting on and her dressings. Otherwise his skin is atrophic and hairless right foot Musculoskeletal: No Tenderness to Palpation of Joints or Extremities, Muscle Wasting, - - Minimal discomfort with wound manipulation right foot Neurological: - - Lack of epicritic sensation to light touch the right foot Psych/Mental Status: Normal Affect, Appropriate Vital Signs Temp Pulse Resp BP Pulse Ox 97.6 F L 60 16 136/69 H 100 10/06/17 15:46 10/06/17 15:46 10/06/17 15:46 10/06/17 15:46 10/06/17 15:46 Oxygen Flow Rate 2 Oxygen Delivery Method Room Air Weight: 81.4 kg Body Mass Index (BMI) 25.0 Intake and Output for Last 24 Hours 10/04/17 10/05/17 10/06/17 23:59 23:59 23:59 Intake Total 877 / 877 1216 / 1216 600 / 600 Output Total 950 / 950 1974 / 1974 1250 / 1250 Balance -73 / -73 -759 / -759 -650 / -650 Microbiology Past 72 Hours 10/01/17 Unknown Gram Stain - Final Wound - Aerobic & Anaerobic Swabs Wound Culture - Final Staphylococcus aureus Anaerobic Culture - Final No anaerobic bacteria isolated. 09/30/17 Unknown Gram Stain - Final Wound Abcess - Aerobic & Anaerobic Swabs Wound Culture - Final Staphylococcus aureus Anaerobic Culture - Final No anaerobic bacteria isolated. 09/30/17 09:26 Blood Culture - Final Blood Culture (Wb) - Left Hand No growth in 5 days. 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 No fever, no leukocytosis. Surgical culture with MSSA, previous culture also with MSSA; patient on Unasyn by Infectious Disease. Changed dressing with wet to dry gauze consisting of normal saline solution and overlying gauze, kerlix, abd pad and gallito bandage. To keep clean, dry, and intact. No weightbearing right forefoot, ok to put weight on right heel as needed for transitions. Keep right foot elevated. Noninvasive lower extremity arterial study has been reviewed, appears to have normal ABIs but abnormal TBI to right foot consistent with small vessel disease - Dr. Peñaloza from vascular surgery has seen patient and has no plans for vascular intervention. Podiatry will continue to follow while in house. Upon transfer to the [facility] facility, he is to follow-up with Dr. acosta within 1 week [facility]; [phone]. Discharge order recommendations will be placed electronically prior to discharge. Valery Faulkner [facility] [phone]
--- NOTE | 2017-10-06 17:18 | PCM.DC.POD ---
Discharge Activity: Use Walker, Use Crutches, - - heel weightbear right foot with surgical shoe Weight Bearing Status: Partial weight bearing Keep extremity elevated above heart level: Right Leg Call your doctor if your incision/area has: Continuous Slow Oozing, Sudden Increased Bleeding, Increased Pain/ Swelling, Increased Redness, Foul Smelling Discharge, Swelling at the incision site Call your doctor if you observe: Fever of 101 or Higher Cleanse incision/area with: Soap & Water - gentle cleanse; no soaking, - - change right foot dressing daily with gauze to incision sites, kerlix, and gallito wrap. Additional Instructions: elevate right lower extremity while at rest Allergies/Adverse Reactions: Allergies HYDROCODONE Allergy (Uncoded 09/30/17 07:54) Unknown Medications to take at Discharge Aspirin 81 mg PO DAILY 09/30/17 Capsaicin 1 dose TOPICAL TID PRN PRN 09/30/17 Cholecalciferol (VIT D3) [Vitamin D3] 3,000 unit PO DAILY 09/30/17 Diclofenac 4 gm TOPICAL BID 09/30/17 Divalproex Sodium [Depakote ER] 4 tab PO QHS 09/30/17 Hydrochlorothiazide [Hctz] 25 mg PO DAILY 09/30/17 Lisinopril [Zestril] 20 mg PO BID 09/30/17 [place]-3 Fatty Acids/Fish Oil [Fish Oil 1,000 mg Capsule] 2 cap PO BID 09/30/17 Primidone [Mysoline] 50 mg PO BID 09/30/17 Simvastatin 40 tab PO QHS 09/30/17 Tamsulosin HCl [Flomax] 1 tab PO QHS 09/30/17 Acetaminophen [Tylenol Tablet] 650 mg PO Q4H PRN PRN tablet 10/06/17 Amlodipine [Norvasc] 5 mg PO DAILY #1 tablet 10/06/17 Amox/Clavulanate Tablet [Augmentin Tablet] 875 mg PO Q12H #18 tab 10/06/17 Doxycycline 100 mg PO BID #18 cap 10/06/17 Gabapentin [Neurontin] 600 mg PO TIDCM tablet 10/06/17 Insulin Aspart [Novolog Flexpen] 23 units SC LUNCH #0 10/06/17 Insulin Aspart [Novolog Flexpen] 25 units SC DINNER #0 10/06/17 Insulin Aspart [Novolog Flexpen] 35 units SC BREAKFAST #0 10/06/17 Insulin Detemir [Levemir FlexPen] 50 units SC QHS insuln.pen 10/06/17 Magnesium Hydroxide [Milk Of Magnesia] 30 ml PO DAILY PRN PRN udc 10/06/17 Metoprolol Tartrate [Lopressor (beta ramy)] 50 mg PO BID tablet 10/06/17 Nicotine [Nicoderm Cq] 21 mg TRANSDERM. DAILY patch 10/06/17 Psyllium [Metamucil] 1 packet PO DAILY PRN PRN packet 10/06/17 Quetiapine Fumarate [Seroquel] 700 mg PO QHS tablet 10/06/17 Senna/Docusate Sodium [Senokot-S] 2 tablet PO BID PRN tablet 10/06/17 The following prescriptions were given: Amlodipine [Norvasc] 5 mg PO DAILY #1 tablet Amox/Clavulanate Tablet [Augmentin Tablet] 875 mg PO Q12H #18 tab Doxycycline 100 mg PO BID #18 cap Primary Care Physician: Care Physician,No Primary [Primary Care Provider] - [facility] Please Follow Up With: Robi Marsh DPM When: 1 week at [facility]; [phone] Proposed Discharge Date: 10/06/17
[2017-10-06 18:00] LABS: Bedside Glucose 187 mg/dL (70-110)
--- NOTE | 2017-10-07 11:38 | LEAS ---
Arterial Study - Arterial Study Arterial Study: Patient: Jacinto Houser Date of scan 10/01/[address] Abarca Interpretation: Right lower extremity with normal pulsatile flow noted down from the thigh through the calf ankle up to the digits of note slightly peaked waveforms noted that could be consistent with medial calcinosis. Duplex shows triphasic flow both vessels with an ERNESTINE 1.11 of the posterior tibial 1.05 the dorsalis pedis. Digital brachial index is 0.37 Left lower extremity with normal pulsatile flow noted from the thigh through the calf ankle out through the digits not as peaked waveforms as noted on the right side. Duplex shows triphasic flow noted both vessels at the ankle with an ERNESTINE 1.09 in the posterior tibial 1.02 in the dorsalis pedis. Digital brachial index is 0.7. Next Impression: 1. Right lower extremity with no evidence of significant arterial occlusive disease at rest with an ERNESTINE 1.11 there is biphasic flow noted with slightly peaked waveforms. Further evaluation as clinically warranted 2. Left lower extremity no evidence of significant arterial occlusive disease at rest with an ERNESTINE is 1.09 and triphasic flow. #3 evidence of small vessel disease on the right with the digit brachial index 0.37
== END 2017-10-06 19:10 | disposition skilled nursing facility (03) | DRG 872 ==
LOC: ED 09:20 → MS3 09:26
PROVIDERS: Podiatrist; Admitting Provider Internal Medicine; Emergency Provider Emergency Medicine; Visit Provider Internal Medicine
DX: A41.9 Sepsis, unspecified organism (principal); N17.9 Acute kidney failure, unspecified; I96 Gangrene, not elsewhere classified; D69.6 Thrombocytopenia, unspecified; E11.42 Type 2 diabetes mellitus with diabetic polyneuropathy; E11.628 Type 2 diabetes mellitus with other skin complications; E11.52 Type 2 diabetes mellitus with diabetic peripheral angiopathy with gangrene; L02.611 Cutaneous abscess of right foot; L03.115 Cellulitis of right lower limb; E78.5 Hyperlipidemia, unspecified; E11.9 Type 2 diabetes mellitus without complications; F31.9 Bipolar disorder, unspecified; R65.20 Severe sepsis without septic shock; B95.61 Methicillin susceptible Staphylococcus aureus infection as the cause of diseases classified elsewhere; I10 Essential (primary) hypertension; Z79.4 Long term (current) use of insulin; M14.671 Charcot's joint, right ankle and foot; I73.9 Peripheral vascular disease, unspecified; A49.01 Methicillin susceptible Staphylococcus aureus infection, unspecified site; Z91.81 History of falling; F17.210 Nicotine dependence, cigarettes, uncomplicated
CPT/HCPCS: 36415; 71045; 73630; 73700; 80048; 80053; 80061; 80164; 81001; 82962; 83036; 83605; 85025; 85652; 86140; 87040; 87070; 87075; 87077; 87186; 87205; 93005; 93923; 93971; 94640; 97110; 97161; 97166; 97530; 97802; 99285; 99406; J7030; J7040; A4216; J0295

== ENCOUNTER 2020-08-27 23:51 | Inpatient (IN) | payer MEDICARE, MEDICAID, OTHER, SELFPAY ==
[2020-08-27 23:52] VITALS: BP 160/85; PULSE 74; RESP 22; TEMP 36.9; O2SAT 91; BMI 26.2
[2020-08-28] VITALS (15 sets, daily range): BP systolic 125–150; BP diastolic 41–77; PULSE 53–69; RESP 17–22; TEMP 36.1–37.1; O2SAT 84–99; BMI 26.5; BMI 26.6
--- NOTE | 2020-08-28 00:31 | EKG12_ITS ---
Test Reason : SOB Blood Pressure : / mmHG Vent. Rate : 072 BPM Atrial Rate : 072 BPM P-R Int : 182 ms QRS Dur : 144 ms QT Int : 458 ms P-R-T Axes : 049 -45 027 degrees QTc Int : 501 ms Normal sinus rhythm Left axis deviation Right bundle branch block Abnormal ECG Confirmed by NITESH PLUMMER, ALETA ([id number]), development editor LILLI MCQUEEN ([id number]) on 08/29/2020 10:53:35 AM Referred By: Susanne Garica Confirmed By:ALETA DOWLING MD
--- NOTE | 2020-08-28 00:31 | RAD_ITS ---
STUDY: X-RAY CHEST REASON FOR EXAM: Male, 64 years old. PT HAD FEVER OF 103 AT [facility]. DX WITH COVID TODAY. HYPOXIC ON ROOM AIR 80''S. TECHNIQUE: Single AP portable view of the chest. COMPARISON: None. FINDINGS: Ill-defined subpleural groundglass opacities are seen more prominent in the left lung base, may represent atypical pneumonia or viral pneumonia (COVID-19 ?). There is no demonstrated pleural abnormality. Normal size heart. Normal mediastinum and catherine. Normal visualized pulmonary arteries. Normal visualized aortic arch and descending thoracic aorta. Normal visualized thoracic spine. Normal visualized ribs, clavicles, and shoulders. There is no demonstrated abnormality of the visualized soft tissue structures of the upper abdomen. RAD/Chest 1 View (Portable) IMPRESSION: Ill-defined subpleural groundglass opacities are seen more prominent in the left lung base, may represent atypical pneumonia or viral pneumonia (COVID-19 ?). Electronically Signed: Stephanie Hernández, at 1:06 EST Tel , Service support ,
--- NOTE | 2020-08-28 00:36 | ED.VIS.GEN ---
History of Present Illness Chief Complaint: Shortness of Breath Informant: Patient Narrative: 64-year-old male presenting from [facility] where he was just transferred to today from a outside facility reportedly in [place]. Patient is a poor historian. He tells me he was just in the hospital and left there today to come to [place]. After calling the [facility]pc we find out that he was at a [facility] in [place] but tested positive for Covid today and they are not taking Covid patients and therefore he was transferred out. He was noted to be febrile and hypoxic at the [facility]. Patient states that he cannot move from his left side laying down in any other position because it will cause him to cough. He states he has problems with his memory. Review of his chart shows that he has peripheral vascular disease chronic wound right foot, diabetes, hypertension, hyperlipidemia, and bipolar disorder. - Past Medical History (1) PAD (peripheral artery disease) Status: Chronic Comment: noel in the digits of the LE's (2) Thrombocytopenia Status: Chronic Comment: possibly related to Zosyn and heparin used for DVT prophylaxis - it resolved (3) Charcot's joint of right foot Status: Chronic (4) Diabetic foot infection Status: Chronic (5) Hypertension Status: Chronic (6) Type 2 diabetes mellitus with diabetic polyneuropathy Status: Chronic Past Medical History - Allergies and Home Meds Allergies/Adverse Reactions: Allergies HYDROCODONE Allergy (Uncoded 08/27/20 23:52) Unknown Primary Care Physician: Care Physician,No Primary [NON-STAFF] - Surgical History: - - unknown Lives: Longterm Smoking Status: Current every day smoker Alcohol: None Drugs: None - Family History Maternal Family History: Reports: No pertinent history Paternal Family History: Reports: No pertinent history Review of Systems General: Reports: Fever, Malaise. Denies: Chills, Sweats Eyes: Denies: Visual changes - bilaterally, Diplopia ENT: Denies: Rhinorrhea, Sore throat Cardiovascular: Denies: Chest pain, Palpitations Respiratory: Reports: Dyspnea, Cough, Dyspnea on exertion Gastrointestinal: Denies: Abdominal pain, Nausea, Vomiting, Diarrhea, Melena, Hematochezia Genitourinary: Denies: Dysuria, Hematuria, Frequency Musculoskeletal: Reports: Myalgias. Denies: Back pain, Extremity Pain Skin: Reports: Wounds - Chronic wounds right foot and chronic appearing wound vertex scalp.. Denies: Rash Neurological: Reports: Headache. Denies: Weakness, Numbness Physical Exam Vital Signs/Narrative: Vital Signs Temp Pulse Resp BP Pulse Ox 08/27/20 23:52 98.4 F 74 22 H 160/85 H 91 Inital Vital Signs reviewed: Yes General: Well nourished, Well developed, Obese, No Acute Distress Head: Normocephalic, Atraumatic Eyes: Perrl, EOMI ENT: Moist mucous membranes, No rhinorrhea Neck: Supple, Nontender Cardiovascular: Regular rate, Regular rhythm, No murmurs Respiratory: No distress, CTA bilaterally, Chest nontender Abdomen: Soft, Nontender, Nondistended, Normal bowel sounds Back: Nontender, Normal Inspection Extremities: Nontender, No edema Skin: Normal color, No rash Neurological: Alert, Cranial nerves II-XII grossly intact, Normal Strength, Normal Sensation. Negative for: Oriented x3 - Orientated x2 Psychological: Normal affect, Normal Mood Diagnostic/Tx/Re-eval Clinical Impression(s) from Imaging Studies Chest X-Ray 08/28/20 00:31 IMPRESSION: Ill-defined subpleural groundglass opacities are seen more prominent in the left lung base, may represent atypical pneumonia or viral pneumonia (COVID-19 ?). Electronically Signed: Stephanie Hernández, at 1:06 EST Tel , Service support , Chest CTA 08/28/20 01:13 IMPRESSION: No demonstrated pulmonary embolism or arterial dissection. Ill-defined subpleural groundglass opacities are seen more prominent in the left lung, may represent atypical pneumonia or viral pneumonia (COVID-19 ?). Electronically Signed: Stephanie Hernández at 2:15 EST Tel , Service support , Laboratory Last Values WBC 4.2 K/mm3 (4.4-11.0) L 08/28/20 00:00 RBC 4.02 M/mm3 (4.6-6.2) L 08/28/20 00:00 Hgb 11.4 g/dL (13.0-16.5) L 08/28/20 00:00 Hct 33.9 % (40-54) L 08/28/20 00:00 MCV 84.3 fL (80-94) 08/28/20 00:00 MCH 28.4 pg (27.0-32.0) 08/28/20 00:00 MCHC 33.6 g/dL (32-36) 08/28/20 00:00 RDW Std Deviation 42.8 fl (35.1-43.9) 08/28/20 00:00 RDW Coeff of Lissa 13.8 % (11.6-14.6) 08/28/20 00:00 Plt Count 135 K/mm3 (150-450) L 08/28/20 00:00 MPV 10.7 fl (6.2-12.0) 08/28/20 00:00 Immature Gran % (Auto) 0.200 % (0.0-0.9) 08/28/20 00:00 Neut % (Auto) 67.5 % (47-70) 08/28/20 00:00 Lymph % (Auto) 18.9 % (19-41) L 08/28/20 00:00 Lyon % (Auto) 13.2 % (0-10) H 08/28/20 00:00 Eos % (Auto) 0.0 % (0-5) 08/28/20 00:00 Baso % (Auto) 0.2 % (0-1) 08/28/20 00:00 Absolute Neuts (auto) 2.9 X10^3/uL (2.0-7.7) 08/28/20 00:00 Absolute Lymphs (auto) 0.80 X10^3/uL (0.83-4.51) L 08/28/20 00:00 Nucleated RBC % 0 % (0-5) 08/28/20 00:00 Fibrinogen 731 mg/dl (203-444) H 08/28/20 00:00 Sodium 136 mmol/L (136-145) 08/28/20 00:00 Potassium 4.2 mmol/L (3.5-5.1) 08/28/20 00:00 Chloride 106 mmol/L (98-107) 08/28/20 00:00 Carbon Dioxide 24.0 mmol/L (21.0-32.0) 08/28/20 00:00 Anion Gap 6 (5-15) 08/28/20 00:00 BUN 26 mg/dL (7-18) H 08/28/20 00:00 Creatinine 1.39 mg/dL (0.70-1.30) H 08/28/20 00:00 Estim Creat Clear Calc 55.68 ml/min 08/28/20 00:00 Est GFR (MDRD) Af Amer 66 mL/min (>60) 08/28/20 00:00 Est GFR (MDRD) Non-Af 54 mL/min (>60) L 08/28/20 00:00 BUN/Creatinine Ratio 18.7 RATIO (10-20) 08/28/20 00:00 Glucose 152 mg/dL (74-106) H 08/28/20 00:00 Lactic Acid 1.0 mmol/L (0.4-1.9) 08/28/20 00:00 Calcium 8.7 mg/dL (8.5-10.1) 08/28/20 00:00 Total Bilirubin 0.30 mg/dL (0.20-1.00) 08/28/20 00:00 AST 42 U/L (15-37) H 08/28/20 00:00 ALT 22 U/L (16-61) 08/28/20 00:00 Alkaline Phosphatase 76 U/L (45-117) 08/28/20 00:00 Lactate Dehydrogenase 238 U/L (87-241) 08/28/20 00:00 Total Creatine Kinase 286 U/L (39-308) 08/28/20 00:00 Troponin I 0.085 ng/mL (<0.045) H 08/28/20 00:00 C-React Prot Ext Range 98.10 mg/L (0.0-3.0) H 08/28/20 00:00 B-Natriuretic Peptide 57.6 pg/mL (0-100) 08/28/20 00:00 Total Protein 8.6 g/dL (6.4-8.2) H 08/28/20 00:00 Albumin 2.6 g/dL (3.2-5.0) L 08/28/20 00:00 Globulin 6.0 g/dL (2.2-4.2) H 08/28/20 00:00 Albumin/Globulin Ratio 0.4 RATIO (0.9-2.4) L 08/28/20 00:00 Procalcitonin 0.16 ng/mL (0.00-0.09) H 08/28/20 00:00 Valproic Acid 58 ug/mL (50-100) 08/28/20 00:00 - EKG Initial EKG Interpretation: Sinus Rhythm - EKG demonstrates a normal sinus rhythm at a rate of 72 with a right bundle branch block. No concerning features of ACS or ectopy - Medical Decision Making Patient removed his IV and cardiac monitoring devices stating that he is not going to have this. He was able to be redirected by nursing and they reestablished IV. CTA demonstrates no pulmonary embolism. He is requiring supplemental oxygen. He has altered mental status but I don't know if it is due to infection or because of his mental health issues. Patient also received Tylenol for his fever. I reviewed his CTA myself it appears he has more inflammation in the left lower lung. His procalcitonin is up. The hospitalist and I discussed this and whether not to give antibiotics in light that he is Covid positive and from an ECF. We are going to give him Zosyn. He will be admitted to the Covid cohort ED Disposition - Plan for ED Patient: Disposition: [facility] Diagnosis: COVID-19, Hypoxia, Sepsis Referrals: Care Physician,No Primary [NON-STAFF] -
[2020-08-28 00:41] LABS: Absolute Neutrophil Count 2.9 X10^3/uL (2.0-7.7); Basophil# 0.01 X10^3/uL; Basophil% 0.2 % (0-1); Hematocrit 33.9 % (40-54); Hemoglobin 11.4 g/dL (13.0-16.5); Lymphocyte % 18.9 % (19-41); Mean Corp Hgb Conc 33.6 g/dL (32-36); Mean Corpuscular Hgb 28.4 pg (27.0-32.0); Mean Corpuscular Volume 84.3 fL (80-94); Mean Platelet Vol. 10.7 fl (6.2-12.0); Monocyte# 0.56 X10^3/uL; Monocyte% 13.2 % (0-10); NRBC Flagged by Analyzer 0 % (0-5); Neutrophil # 2.85 X10^3/uL (2.7-7.7); Neutrophil % 67.5 % (47-70); Platelet Count 135 K/mm3 (150-450); RBC Distribution Width CV 13.8 % (11.6-14.6); RBC Distribution Width SD 42.8 fl (35.1-43.9); Red Blood Count 4.02 M/mm3 (4.6-6.2); White Blood Count 4.2 K/mm3 (4.4-11.0)
[2020-08-28] MEDS: 0.9% Normal Saline 1,000 ML 125 ML IV (00:45)
[2020-08-28] MEDS: dexAMETHasone 4 MG Tablet 6 MG PO (00:45)
[2020-08-28] MEDS: Acetaminophen 500 MG Tablet 1000 MG PO (00:45)
[2020-08-28 01:05] LABS: ALB/GLOB Ratio 0.4 RATIO (0.9-2.4); AST(SGOT) 42 U/L (15-37); Alanine Aminotransfer ALT/SGPT 22 U/L (16-61); Albumin, Serum 2.6 g/dL (3.2-5.0); Alkaline Phosphatase 76 U/L (45-117); Anion Gap 6 (5-15); BUN 26 mg/dL (7-18); BUN/Creat Ratio 18.7 RATIO (10-20); CPK Total, Creatine Kinase 286 U/L (39-308); Calcium,Total 8.7 mg/dL (8.5-10.1); Chloride 106 mmol/L (98-107); Creatinine, Serum 1.39 mg/dL (0.70-1.30); EST Glomerular Filtration Rate 54 mL/min (>60); Est Glom Filt Rate - Afr Amer 66 mL/min (>60); Estimated Creatinine Clearance 55.68 ml/min; Glucose 152 mg/dL (74-106); LDH 238 U/L (87-241); Potassium 4.2 mmol/L (3.5-5.1); Protein, Total 8.6 g/dL (6.4-8.2); Sodium Level 136 mmol/L (136-145)
--- NOTE | 2020-08-28 01:13 | CT_ITS ---
STUDY: CTA CHEST REASON FOR EXAM: Male, 64 years old. HYPOXIA/FEVER. Hx of GERD, diabetes, HTN and PAD RADIATION DOSAGE (If Supplied By Facility): CTDIvol = ( 14.68 ) mGy, DLP = ( 549.10 ) mGycm TECHNIQUE: The examination was performed with the intravenous administration of IV 100mL Isovue-370. Post-processing of the angiographic images was performed, with multiplanar reformation and 3D reconstruction. Individualized dose optimization techniques were used for this CT. COMPARISON: None. FINDINGS: Normal enhancement of the main pulmonary artery and right and left pulmonary arteries. Normal enhancement of the bilateral peripheral pulmonary arteries. There is no demonstrated pulmonary embolism. Normal thoracic aorta and visualized great vessels. There is no demonstrated aortic dissection. Normal heart and pericardium. Normal mediastinum. Normal hilar regions. Normal visualized trachea and bronchi. The lungs are well expanded. Ill-defined subpleural groundglass opacities are seen more prominent in the left lung, may represent atypical pneumonia or viral pneumonia (COVID-19 ?). Normal pleura. Normal chest wall structures. Normal osseous structures. Normal visualized upper abdomen. CT/CTA Chest W/WO Contrast IMPRESSION: No demonstrated pulmonary embolism or arterial dissection. Ill-defined subpleural groundglass opacities are seen more prominent in the left lung, may represent atypical pneumonia or viral pneumonia (COVID-19 ?). Electronically Signed: Stephanie Hernández, at 2:15 EST Tel , Service support ,
[2020-08-28 01:18] LABS: BNP,B-Type NATRIURETIC PEPTIDE 57.6 pg/mL (0-100)
[2020-08-28 01:19] LABS: Valproic Acid (Depakene) Level 58 ug/mL (50-100)
[2020-08-28 01:26] LABS: Procalcitonin 0.16 ng/mL (0.00-0.09)
[2020-08-28 01:32] LABS: Fibrinogen 731 mg/dl (203-444)
--- NOTE | 2020-08-28 02:25 | ED.RN ---
THE PT IS A POOR HISTORIAN AND WAS UNABLE TO EXPLAIN HIS RESIDENCY SITUATION. PER NEDA AT [facility], PT WAS XFERRED TO THEIR FACILITY FROM [facility] ON THE AM OF 08/27. HE HAS BEEN A RESIDENT THERE SINCE 11/2017.
--- NOTE | 2020-08-28 02:50 | PCM.HP.STD ---
Problem List (1) Hyperlipidemia Status: Chronic (2) Bipolar disorder Status: Chronic (3) Depression Status: Chronic (4) COVID-19 Status: Acute (5) Hypoxia Status: Acute (6) Type 2 diabetes mellitus with diabetic polyneuropathy Status: Chronic (7) Hypertension Status: Chronic (8) Diabetic foot infection Status: Chronic (9) PAD (peripheral artery disease) Status: Chronic Comment: noel in the digits of the LE's History of Present Illness Date of Admission: 08/28/20 Chief Complaint: Shortness of breath. The patient is a 64 year old M with past medical history as mentioned above presented to the emergency room from the custodial because of shortness of breath. The patient is poor informant and was not able to provide detailed history. He mentioned that he has been sick for 3 to 4 weeks, has been having shortness of breath with productive cough as well as fever at the custodial. Reportedly, patient was telling the staff in the ED that he was just in the hospital and he was discharged to come to [place] today. After calling the nursing staff at the custodial, apparently patient was at custodial in [place] and tested positive for COVID-19 and that facility does not take care of patients with Covid and then he was transferred to [facility] in [place] yesterday. He had a history of bipolar disorder and depression and he has been on bupropion, Depakote and primidone. He had a history of type 2 diabetes mellitus, has been on Lantus and premeal NovoLog high dosage. He had a history of hypertension which has been controlled on Norvasc and hydralazine. In the emergency department, patient was afebrile, blood pressure and heart rate are stable, pulse ox was 91% on room air and he required 2 L of oxygen. Routine blood work was remarkable for leukopenia and lymphopenia, BUN of 26, creatinine is 1.39. LFT was unremarkable. Troponin was 0.085. EKG revealed normal sinus rhythm with RBBB, no acute ischemic changes. CRP and procalcitonin as well as fibrinogen was elevated. Reportedly, patient tested positive for COVID-19 yesterday. Chest x-ray revealed left base groundglass opacities. CTA chest done and showed no PE or dissection, revealed subpleural groundglass opacities more prominent on the left lung. Patient is being admitted for acute COVID-19 pneumonia with acute hypoxic respiratory insufficiency as well as acute kidney injury. Past Medical History Past Medical History (Chronic Problems): Chronic Problems Hyperlipidemia (Chronic) Bipolar disorder (Chronic) Depression (Chronic) Charcot's joint of right foot (Chronic) Type 2 diabetes mellitus with diabetic polyneuropathy (Chronic) Hypertension (Chronic) Diabetic foot infection (Chronic) Thrombocytopenia (Chronic) possibly related to Zosyn and heparin used for DVT prophylaxis - it resolved PAD (peripheral artery disease) (Chronic) noel in the digits of the LE's Allergies HYDROCODONE Allergy (Uncoded 08/27/20 23:52) Unknown Home Medications: Ambulatory Orders Medication Instructions Recorded Aspirin 81 mg PO DAILY 09/30/17 Capsaicin 1 dose TOPICAL TID PRN PRN 09/30/17 Cholecalciferol (VIT D3) [Vitamin 3,000 unit PO DAILY 09/30/17 D3] Divalproex Sodium [Depakote ER] 1,000 mg PO QHS 09/30/17 [place]-3 Fatty Acids/Fish Oil [Fish 2 cap PO DAILY 09/30/17 Oil 1,000 mg Capsule] Primidone [Mysoline] 50 mg PO QHS 09/30/17 Acetaminophen [Tylenol Tablet] 650 mg PO Q4H PRN PRN tablet 10/06/17 Gabapentin [Neurontin] 600 mg PO TIDCM tablet 10/06/17 Magnesium Hydroxide [Milk Of 30 ml PO DAILY PRN PRN udc 10/06/17 Magnesia] Metoprolol Tartrate [Lopressor 50 mg PO BID tablet 10/06/17 (beta ramy)] Quetiapine Fumarate [Seroquel] 700 mg PO QHS tablet 10/06/17 Amlodipine [Norvasc] 10 mg PO DAILY 08/28/20 Buspirone HCl 7.5 mg PO DAILY 08/28/20 Famotidine 20 mg PO DAILY 08/28/20 Hydralazine HCl 25 mg PO TID 08/28/20 Hydroxyzine HCl 25 mg PO DAILY 08/28/20 Insulin Aspart [Novolog Flexpen] 64 units SC TIDCM 08/28/20 Insulin Glargine,Hum.rec.anlog 96 unit SQ BID 08/28/20 [Lantus] Lactulose 30 ml PO DAILY 08/28/20 Mineral Oil/Petrolatum,White 1 applic TOPICAL BID PRN PRN 08/28/20 [Eucerin] Ondansetron [Zofran Odt] 4 mg PO TIDCM 08/28/20 Pravastatin Sodium 40 mg PO BID 08/28/20 Sumatriptan Succinate [Imitrex] 25 mg PO Q2H PRN PRN 08/28/20 Tamsulosin HCl [Flomax] 0.4 mg PO QHS 08/28/20 Tramadol HCl 50 mg PO Q8H PRN PRN 08/28/20 Surgical History: - - unknown Psychiatric History: Bipolar, Depression Lives: Skilled Nursing Smoking Status: Unknown if ever smoked Alcohol: None Drugs: None - *Family History Maternal History Items: No pertinent history Paternal History Items: No pertinent history Review of Systems Constitutional: Reports: Fever. Denies: Anorexia, Chills, Weakness Eyes: Denies: Blurred vision, Double vision, Drainage, Redness HEENT: Denies: Difficulty Hearing, Ear Pain, Eye Pain, Nasal Congestion, Sore Throat Cardiovascular: Denies: Chest Pain, Chest Pressure, Edema, Light Headedness, Palpitations, Syncope Respiratory: Reports: Cough, Shortness of Breath. Denies: Sputum production, Wheezing Gastrointestinal: Denies: Abdominal Pain, Constipation, Diarrhea, Nausea, Vomiting Genitourinary: Denies: Dysuria, Frequency, Hematuria Musculoskeletal: Denies: Arm Pain, Back Pain, Foot Pain Skin: Denies: Dryness, Rash Neurological: Denies: Balance problems, Double vision, Change in Speech, Slurred speech, Confusion, Headaches, Incoordination Psychiatric: Reports: Depression. Denies: Anxiety Endocrine: Denies: Change in Body Habitus, Polydipsia, Polyuria VTE Information - Inpt Only VTE Present on Admission: No VTE Mechan Device Prophylaxis: None VTE Pharm Prophylaxis ordered?: Yes Patient Problems: Active and Suspected Problems COVID-19 (Acute) Hypoxia (Acute) - Physical Exam Vitals/I&O's: Vital Signs Temp Pulse Resp BP Pulse Ox 98.8 F 65 21 H 125/51 H 94 08/28/20 01:29 08/28/20 02:20 08/28/20 02:20 08/28/20 02:20 08/28/20 02:20 Oxygen Flow Rate (L/min) 2 Oxygen Delivery Method Nasal Cannula Weight: 187 lb 9.814 oz Body Mass Index (BMI) 26.2 Finger Stick Blood Glucose 256 General: Alert, Oriented x3, Cooperative, No apparent distress HEENT: Atraumatic, PERRLA, EOMI, Normocephalic Oral: Moist Mucosa, No Gingival or Mucosal Lesions/ Ulcerations Neck: Supple, No JVD, Negative Carotid Bruits, Trachea Midline, Thyroid Normal Size and Texture Lungs: Clear to auscultation, No rhonchi, No wheeze, No rales, Diminished Cardiovascular: Regular rate, Regular Rhythm, Normal S1, Normal S2, PMI Normal Abdomen: Bowel Sounds Present, Soft, Non Tender, Non-Distended, No Hepato-splenomegaly Extremities: No clubbing, No cyanosis, Edema Skin: No rashes, Ulcer/ Wound Lymphatic: No Cervical, Supraclavicular, or Inguinal Adenopathy Neurological: Cranial nerves II-XII grossly intact, Motor Exam 5/5 strength throughout Psych/Mental Status: Normal Affect, Appropriate Laboratory Results 08/28/20 00:00: WBC 4.2 L, RBC 4.02 L, Hgb 11.4 L, Hct 33.9 L, MCV 84.3, MCH 28.4, MCHC 33.6, RDW Std Deviation 42.8, RDW Coeff of Lissa 13.8, Plt Count 135 L, MPV 10.7, Immature Gran % (Auto) 0.200, Neut % (Auto) 67.5, Lymph % (Auto) 18.9 L, [place] % (Auto) 13.2 H, Eos % (Auto) 0.0, Baso % (Auto) 0.2, Absolute Neuts (auto) 2.9, Absolute Lymphs (auto) 0.80 L, Nucleated RBC % 0 08/28/20 00:00: Fibrinogen 731 H 08/28/20 00:00: Sodium 136, Potassium 4.2, Chloride 106, Carbon Dioxide 24.0, Anion Gap 6, BUN 26 H, Creatinine 1.39 H, Estim Creat Clear Calc 55.68, Est GFR (MDRD) Af Amer 66, Est GFR (MDRD) Non-Af 54 L, BUN/Creatinine Ratio 18.7, Glucose 152 H, Calcium 8.7, Total Bilirubin 0.30, AST 42 H, ALT 22, Alkaline Phosphatase 76, Lactate Dehydrogenase 238, Total Creatine Kinase 286, Troponin I 0.085 H, C-React Prot Ext Range 98.10 H, Total Protein 8.6 H, Albumin 2.6 L, Globulin 6.0 H, Albumin/Globulin Ratio 0.4 L 08/28/20 00:00: Lactic Acid 1.0 08/28/20 00:00: B-Natriuretic Peptide 57.6 08/28/20 00:00: Procalcitonin 0.16 H 08/28/20 00:00: Valproic Acid 58 Clinical Impression(s) from Imaging Studies Chest X-Ray 08/28/20 00:31 IMPRESSION: Ill-defined subpleural groundglass opacities are seen more prominent in the left lung base, may represent atypical pneumonia or viral pneumonia (COVID-19 ?). Electronically Signed: Stephanie Hernández, at 1:06 EST Tel , Service support , Chest CTA 08/28/20 01:13 IMPRESSION: No demonstrated pulmonary embolism or arterial dissection. Ill-defined subpleural groundglass opacities are seen more prominent in the left lung, may represent atypical pneumonia or viral pneumonia (COVID-19 ?). Electronically Signed: Stephanie Hernández, at 2:15 EST Tel , Service support , Current Medications Dexamethasone (Dexamethasone 4 Mg Tablet) 6 mg PO X1 ONE Stop: 08/28/20 10:01 Last Admin: 08/28/20 00:45 Dose: 6 mg Documented by: Sodium Chloride () 1,000 mls @ 125 mls/hr IV .Q8H JESSIE Last Admin: 08/28/20 00:45 Dose: 125 mls/hr Documented by: Piperacillin Sod/Tazobactam (Sod 4.5 gm/ Sodium Chloride) 100 mls @ 200 mls/hr IV X1 ONE Stop: 08/28/20 02:58 Assessment/Plan All Active Problems COVID-19 (Acute) Hypoxia (Acute) This is a 64 years old male patient presented to the emergency room from custodial because of shortness of breath and because he tested positive for COVID-19 yesterday and is being admitted for acute COVID-19 pneumonia with acute hypoxic respiratory insufficiency as well as acute kidney injury and abnormal cardiac enzymes. #1 acute COVID-19 pneumonia/acute hypoxic respiratory sufficiency: Chest x-ray and CTA chest done and reviewed. Currently, patient is on 2 L of oxygen. Reportedly, he tested positive for COVID-19 yesterday. Fibrinogen, procalcitonin and CRP are elevated. Plan: Admit to [facility] COVID-19 floor, isolation precautions, gentle IV fluids for hydration, start IV Decadron and remdesivir, infectious disease consult, Tylenol as needed, Zofran as needed, repeat CBC and CMP tomorrow morning, check pro time and INR, PT OT evaluation and treatment. #2 abnormal cardiac enzymes: Likely due to acute COVID-19. EKG without acute ischemic changes. Patient denied any chest pain. Plan: Cardiac monitoring, serial cardiac enzymes, continue aspirin, statins, metoprolol. #3 acute kidney injury: Due to acute infection. Baseline kidney function is normal. Plan: Gentle IV fluids for hydration, input output chart, repeat CMP tomorrow morning. #4 type 2 diabetes mellitus: ADA diet, Accu-Cheks, insulin sliding scale, continue home doses of Lantus and NovoLog. #5 hypertension: Blood pressure stable, continue Norvasc and hydralazine as well as metoprolol. #6 chronic right foot diabetic infection/ulcer: Wound care nurse consult. #7 benign prostatic hypertrophy: Continue Flomax. #8 hyperlipidemia: Continue statins. #9 CODE STATUS: Full code. I explained to the patient to my best different types of CODE STATUS including full code, DNR CC and DNR CCA. He stated that he does want to be intubated and on mechanical ventilation if needed. #10 DVT prophylaxis: Subcu Lovenox twice daily. This note was generated with [employer] dictation software. It may contain incorrect words, spelling, and punctuation that were not noted in checking the note before signing. Inpatient E&M: 00521 Init Hosp L3
--- NOTE | 2020-08-28 03:40 | PCS.PANDOC ---
PANDEMIC DOCUMENTATION INITIATED: Date: 08/28/20 Time: 9702
[2020-08-28] MEDS: 0.9% Normal Saline 1,000 ML 75 ML IV (04:05)
[2020-08-28] MEDS: Acetaminophen 325 MG Tablet 650 MG PO (05:12)
[2020-08-28] MEDS: hydrALAZINE 25 MG Tablet PO ×3 (05:12→21:20)
[2020-08-28 06:03] LABS: International Normalized Ratio 1.1; Prothrombin Time (Protime)PT. 13.9 SECONDS (11.7-14.9)
[2020-08-28 08:10] LABS: Bedside Glucose 262 mg/dL (70-110)
[2020-08-28] MEDS: Insulin Lispro 100 UNIT/ML INSULN.PEN SC ×3 (08:38→16:28)
[2020-08-28] MEDS: Insulin Lispro 100 UNIT/ML INSULN.PEN 64 UNIT SC ×3 (08:38→16:28)
[2020-08-28] MEDS: Enoxaparin 30 MG/0.3 ML Syringe SC ×2 (08:40→21:20)
[2020-08-28] MEDS: amLODIPine 10 MG Tablet PO (08:40)
[2020-08-28] MEDS: Famotidine 20 MG Tablet PO (08:40)
[2020-08-28] MEDS: busPIRone 5 MG Tablet 7.5 MG PO (08:41)
[2020-08-28] MEDS: Aspirin 81 MG TAB.CHEW PO (08:41)
[2020-08-28] MEDS: Metoprolol Tartrate 50 MG Tablet PO ×2 (08:42→21:20)
[2020-08-28] MEDS: Gabapentin 600 MG Tablet PO ×3 (08:42→16:28)
[2020-08-28] MEDS: dexAMETHasone 10 MG/ML Vial 6 MG IV (08:43)
[2020-08-28] MEDS: Lactulose 20 GM/30 ML UDC PO (08:43)
[2020-08-28] MEDS: Glucerna Shake 120 ML LIQUID PO ×3 (08:43→16:28)
[2020-08-28] MEDS: Pravastatin 40 MG Tablet PO ×2 (08:52→21:20)
--- NOTE | 2020-08-28 09:00 | CASEMGMT ---
Addendum entered by Taryn Gonzalez 08/28/20 15:20: Pt's brother Rober called back, he confirms the plan is for pt to return to [facility] when ready, and eventually will return to the [facility] facility in [place]. SW let pt's brother know will let him know when pt can return to [facility], and if he does not answer will leave him a message. Pt's brother in agreement. SW will continue to follow. KHADIJAH Samson Addendum entered by Taryn Gonzalez 08/28/20 14:13: [facility] faxed over the COVID test results, SW placed in laboratory tab in paper chart. KHADIJAH Samson Addendum entered by Taryn Gonzalez 08/28/20 13:51: Pt's RN asked SW [facility] and if [facility] can [facility]. SW called [facility], spoke hermilo/Jana, asked her about getting [facility] appointment [facility]. They will do this for pt. KHADIJAH Samson Addendum entered by Taryn Gonzalez 08/28/20 09:23: SW faxed updates to [facility]. SW called [facility], asked if they have guardianship papers for pt, they do and will fax them over. Pt's brother Rober Houser is pt's guardian. SW called pt's brother, message left. 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 He was just transferred yesterday. EDGAR will send updates to [facility] shortly. Precert will be needed in order for pt to return. KHADIJAH Samson
--- NOTE | 2020-08-28 11:14 | PCM.HP.ID ---
Problem List (1) COVID-19 Status: Acute Reason for Consult: dany Consulted by: Dr. Garcia History of Present Illness: The patient is a 64 year old M [facility] resident, dany came back (+) 08/27, sent to [facility] ED due to altered mental status, fever, hypoxia. Reports a few days of cough, not feeling well, but unable to provide much history. Full ROS performed and neg except as noted above. - Medical History Past Medical History (Chronic Problems): Chronic Problems Hyperlipidemia (Chronic) Bipolar disorder (Chronic) Depression (Chronic) Charcot's joint of right foot (Chronic) Type 2 diabetes mellitus with diabetic polyneuropathy (Chronic) Hypertension (Chronic) Diabetic foot infection (Chronic) Thrombocytopenia (Chronic) possibly related to Zosyn and heparin used for DVT prophylaxis - it resolved PAD (peripheral artery disease) (Chronic) noel in the digits of the LE's Allergies/Adverse Reactions: Allergies HYDROCODONE Allergy (Uncoded 08/27/20 23:52) Unknown Home Medications: Ambulatory Orders Medication Instructions Recorded Aspirin 81 mg PO DAILY 09/30/17 Capsaicin 1 dose TOPICAL TID PRN PRN 09/30/17 Cholecalciferol (VIT D3) [Vitamin 3,000 unit PO DAILY 09/30/17 D3] Divalproex Sodium [Depakote ER] 1,000 mg PO QHS 09/30/17 [place]-3 Fatty Acids/Fish Oil [Fish 2 cap PO DAILY 09/30/17 Oil 1,000 mg Capsule] Primidone [Mysoline] 50 mg PO QHS 09/30/17 Acetaminophen [Tylenol Tablet] 650 mg PO Q4H PRN PRN tablet 10/06/17 Magnesium Hydroxide [Milk Of 30 ml PO DAILY PRN PRN udc 10/06/17 Magnesia] Amlodipine [Norvasc] 10 mg PO DAILY 08/28/20 Buspirone HCl 7.5 mg PO DAILY 08/28/20 Famotidine 20 mg PO DAILY 08/28/20 Gabapentin [Neurontin] 600 mg PO TIDCM 08/28/20 Hydralazine HCl 25 mg PO TID 08/28/20 Hydroxyzine HCl 25 mg PO DAILY 08/28/20 Insulin Aspart [Novolog Flexpen] 64 units SC TIDCM 08/28/20 Insulin Glargine,Hum.rec.anlog 96 unit SQ BID 08/28/20 [Lantus] Lactulose 30 ml PO DAILY 08/28/20 Metoprolol Tartrate [Lopressor 50 mg PO BID 08/28/20 (beta ramy)] Mineral Oil/Petrolatum,White 1 applic TOPICAL BID PRN PRN 08/28/20 [Eucerin] Ondansetron [Zofran Odt] 4 mg PO TIDCM 08/28/20 Pravastatin Sodium 40 mg PO BID 08/28/20 Quetiapine Fumarate [Seroquel] 700 mg PO QHS 08/28/20 Sumatriptan Succinate [Imitrex] 25 mg PO Q2H PRN PRN 08/28/20 Tamsulosin HCl [Flomax] 0.4 mg PO QHS 08/28/20 Tramadol HCl 50 mg PO Q8H PRN PRN 08/28/20 - Social History SMOKING STATUS:: Current every day smoker Vital Signs Temp Pulse Resp BP Pulse Ox 96.9 F L 53 L 18 139/77 H 99 08/28/20 09:52 08/28/20 09:52 08/28/20 09:52 08/28/20 09:52 08/28/20 09:52 Oxygen Flow Rate (L/min) 3 Oxygen Delivery Method Nasal Cannula Weight: 81.6 kg Body Mass Index (BMI) 26.5 Finger Stick Blood Glucose 256 Laboratory Tests Past 24 Hrs 08/28/20 08/28/20 08/28/20 00:00 00:00 00:00 WBC 4.2 L RBC 4.02 L Hgb 11.4 L Hct 33.9 L MCV 84.3 MCH 28.4 MCHC 33.6 RDW Std Deviation 42.8 RDW Coeff of Lissa 13.8 Plt Count 135 L MPV 10.7 Immature Gran % (Auto) 0.200 Neut % (Auto) 67.5 Lymph % (Auto) 18.9 L [place] % (Auto) 13.2 H Eos % (Auto) 0.0 Baso % (Auto) 0.2 Absolute Neuts (auto) 2.9 Absolute Lymphs (auto) 0.80 L Nucleated RBC % 0 PT INR Fibrinogen 731 H Sodium 136 Potassium 4.2 Chloride 106 Carbon Dioxide 24.0 Anion Gap 6 BUN 26 H Creatinine 1.39 H Estim Creat Clear Calc 55.68 Est GFR (MDRD) Af Amer 66 Est GFR (MDRD) Non-Af 54 L BUN/Creatinine Ratio 18.7 Glucose 152 H Lactic Acid Calcium 8.7 Total Bilirubin 0.30 AST 42 H ALT 22 Alkaline Phosphatase 76 Lactate Dehydrogenase 238 Total Creatine Kinase 286 Troponin I 0.085 H C-React Prot Ext Range 98.10 H B-Natriuretic Peptide Total Protein 8.6 H Albumin 2.6 L Globulin 6.0 H Albumin/Globulin Ratio 0.4 L Procalcitonin Valproic Acid 08/28/20 08/28/20 08/28/20 00:00 00:00 00:00 WBC RBC Hgb Hct MCV MCH MCHC RDW Std Deviation RDW Coeff of Lissa Plt Count MPV Immature Gran % (Auto) Neut % (Auto) Lymph % (Auto) [place] % (Auto) Eos % (Auto) Baso % (Auto) Absolute Neuts (auto) Absolute Lymphs (auto) Nucleated RBC % PT INR Fibrinogen Sodium Potassium Chloride Carbon Dioxide Anion Gap BUN Creatinine Estim Creat Clear Calc Est GFR (MDRD) Af Amer Est GFR (MDRD) Non-Af BUN/Creatinine Ratio Glucose Lactic Acid 1.0 Calcium Total Bilirubin AST ALT Alkaline Phosphatase Lactate Dehydrogenase Total Creatine Kinase Troponin I C-React Prot Ext Range B-Natriuretic Peptide 57.6 Total Protein Albumin Globulin Albumin/Globulin Ratio Procalcitonin 0.16 H Valproic Acid 08/28/20 08/28/20 00:00 05:40 WBC RBC Hgb Hct MCV MCH MCHC RDW Std Deviation RDW Coeff of Lissa Plt Count MPV Immature Gran % (Auto) Neut % (Auto) Lymph % (Auto) [place] % (Auto) Eos % (Auto) Baso % (Auto) Absolute Neuts (auto) Absolute Lymphs (auto) Nucleated RBC % PT 13.9 INR 1.1 Fibrinogen Sodium Potassium Chloride Carbon Dioxide Anion Gap BUN Creatinine Estim Creat Clear Calc Est GFR (MDRD) Af Amer Est GFR (MDRD) Non-Af BUN/Creatinine Ratio Glucose Lactic Acid Calcium Total Bilirubin AST ALT Alkaline Phosphatase Lactate Dehydrogenase Total Creatine Kinase Troponin I C-React Prot Ext Range B-Natriuretic Peptide Total Protein Albumin Globulin Albumin/Globulin Ratio Procalcitonin Valproic Acid 58 - Other Studies Radiology: [] reviewed Other Studies: [] Route of nutrition/ use of supplements: [] Nutritional Intake: [] IV Site: [] Hart Catheter: [] - Physical Exam General: Alert, Cooperative, No apparent distress HEENT: Atraumatic, PERRLA, EOMI Neck: Supple, No Nodes Lungs: Diminished Cardiovascular: Regular rate, Regular Rhythm Abdomen: Soft, Non Tender, Non-Distended Extremities: No edema Skin: No rashes IV Site: Peripheral, without redness Musculoskeletal: No Tenderness to Palpation of Joints or Extremities Neurological: Cranial nerves II-XII grossly intact - Assessment/Plan Antibiotics: [] Assessment/Plan: [] Active and Suspected Problems Sepsis (Acute) COVID-19 (Acute) Hypoxia (Acute) covid with hypoxia - sx started around 08/26 but pt unreliable historian. Covid (+) at [facility]. Admitted here on zosyn, dex, remdesivir. No sputum. No fever here. PCT 0.1. Will stop zosyn. Change dex to po. Checking d-dimer. On lovenox 30mg bid. Will follow, thank you
[2020-08-28 12:30] LABS: Bedside Glucose 368 mg/dL (70-110)
--- NOTE | 2020-08-28 13:50 | CASEMGMT ---
Addendum entered by Taryn Gonzalez 08/28/20 14:12: Guardianship papers received from [facility], placed on chart. KHADIJAH Samson Original Note: As per registration documentation, pt's brother is pt's guardian. asked [facility] to fax the guardianship paperwork to the hospital. SYLVIA SamsonS
[2020-08-28 16:40] LABS: Bedside Glucose 315 mg/dL (70-110)
--- NOTE | 2020-08-28 18:22 | PCM.HOSP.N ---
Hospitalist Note Pt was admitted after MN today. On 2 L Nasal cannula at this time. Troponin slightly up so repeat in am. If increases further would check ECHO to r/o WMA. Pt is on ASA. BGT up with decadron but already on 96 u Lantus BID and 64 u log TID with SSI. May need insulin ggt if continue to trend up. Monitor O2 sats. And continue treatment and supportive care for COVID-19 PNA.
[2020-08-28] MEDS: Primidone 50 MG Tablet PO (21:20)
[2020-08-28] MEDS: QUEtiapine 100 MG Tablet 700 MG PO (21:20)
[2020-08-28] MEDS: Divalproex (ER) 500 MG Tablet 1000 MG PO (21:20)
[2020-08-28] MEDS: Tamsulosin HCl 0.4 MG Capsule PO (21:20)
[2020-08-28] MEDS: 0.9% Saline Lock 10 ML Syringe IV (21:21)
[2020-08-28] MEDS: Menthol/Lanolin/Calamine/Znox 113 GM Tube 1 APPLIC TOPICAL (21:22)
[2020-08-28 21:56] LABS: Bedside Glucose 138 mg/dL (70-110)
[2020-08-28] MEDS: Zolpidem Tartrate 5 MG Tablet PO (23:45)
[2020-08-29] VITALS (10 sets, daily range): BP systolic 122–159; BP diastolic 61–77; PULSE 60–90; RESP 16–20; TEMP 36.3–36.9; O2SAT 93–99
[2020-08-29] MEDS: Menthol/Lanolin/Calamine/Znox 113 GM Tube 1 APPLIC TOPICAL ×3 (06:56→22:20)
[2020-08-29] MEDS: hydrALAZINE 25 MG Tablet PO ×3 (06:56→22:21)
[2020-08-29 07:00] LABS: Mean Corp Hgb Conc 33.3 g/dL (32-36); Mean Corpuscular Hgb 28.4 pg (27.0-32.0); Mean Corpuscular Volume 85.1 fL (80-94); Mean Platelet Vol. 10.5 fl (6.2-12.0); Platelet Count 132 K/mm3 (150-450); RBC Distribution Width CV 13.9 % (11.6-14.6); RBC Distribution Width SD 42.9 fl (35.1-43.9); Red Blood Count 3.88 M/mm3 (4.6-6.2); White Blood Count 4.6 K/mm3 (4.4-11.0)
[2020-08-29 07:33] LABS: ALB/GLOB Ratio 0.4 RATIO (0.9-2.4); AST(SGOT) 40 U/L (15-37); Alanine Aminotransfer ALT/SGPT 22 U/L (16-61); Albumin, Serum 2.3 g/dL (3.2-5.0); Alkaline Phosphatase 67 U/L (45-117); Anion Gap 7 (5-15); BUN 31 mg/dL (7-18); BUN/Creat Ratio 27.7 RATIO (10-20); Calcium,Total 8.7 mg/dL (8.5-10.1); Chloride 107 mmol/L (98-107); Creatinine, Serum 1.12 mg/dL (0.70-1.30); EST Glomerular Filtration Rate 70 mL/min (>60); Est Glom Filt Rate - Afr Amer 84 mL/min (>60); Estimated Creatinine Clearance 64.88 ml/min; Globulin 5.3 g/dL (2.2-4.2); Glucose 92 mg/dL (74-106); Potassium 3.9 mmol/L (3.5-5.1); Protein, Total 7.6 g/dL (6.4-8.2); Sodium Level 138 mmol/L (136-145)
[2020-08-29 08:50] LABS: D-Dimer Quantitative (DVT/PE) 0.98 FEU/ug/m (0.27-0.49)
[2020-08-29 09:10] LABS: Bedside Glucose 89 mg/dL (70-110)
[2020-08-29] MEDS: Aspirin 81 MG TAB.CHEW PO (10:21)
[2020-08-29] MEDS: Famotidine 20 MG Tablet PO (10:21)
[2020-08-29] MEDS: Enoxaparin 30 MG/0.3 ML Syringe SC ×2 (10:21→22:23)
[2020-08-29] MEDS: Metoprolol Tartrate 50 MG Tablet PO ×2 (10:21→22:22)
[2020-08-29] MEDS: dexAMETHasone 4 MG Tablet 6 MG PO (10:21)
[2020-08-29] MEDS: amLODIPine 10 MG Tablet PO (10:21)
[2020-08-29] MEDS: Gabapentin 600 MG Tablet PO ×3 (10:21→17:48)
[2020-08-29] MEDS: Pravastatin 40 MG Tablet PO ×2 (10:21→22:21)
[2020-08-29] MEDS: Lactulose 20 GM/30 ML UDC PO (10:22)
[2020-08-29] MEDS: busPIRone 5 MG Tablet 7.5 MG PO (10:22)
[2020-08-29] MEDS: Insulin Lispro 100 UNIT/ML INSULN.PEN SC ×3 (12:38→22:19)
[2020-08-29] MEDS: Insulin Lispro 100 UNIT/ML INSULN.PEN 8 UNIT SC ×2 (12:38→17:47)
[2020-08-29 12:41] LABS: Bedside Glucose 218 mg/dL (70-110)
--- NOTE | 2020-08-29 13:17 | PN_ITS ---
Patient Problems: Active and Suspected Problems Sepsis (Acute) COVID-19 (Acute) Hypoxia (Acute) Reason for Visit: COVID 19 Subjective: Wants to know when he'll go home. Vitals/I&O's: Vital Signs Temp Pulse Resp BP Pulse Ox 36.3 C L 66 16 159/69 H 95 08/29/20 10:26 08/29/20 10:26 08/29/20 10:26 08/29/20 10:26 08/29/20 10:26 Oxygen Flow Rate (L/min) 2 Oxygen Delivery Method Nasal Cannula Weight: 81.6 kg Body Mass Index (BMI) 26.5 Finger Stick Blood Glucose 256 Intake and Output for Last 24 Hours 08/27/20 08/28/20 08/29/20 23:59 23:59 23:59 Intake Total 2519.17 / 2519.17 240 / 240 Output Total 1150 / 1150 300 / 300 Balance 1369.17 / 1369.17 -60 / -60 General: Alert, No apparent distress HEENT: Atraumatic, Normocephalic Oral: Moist Mucosa, No Gingival or Mucosal Lesions/ Ulcerations Neck: No Nodes, Thyroid Normal Size and Texture Lungs: Clear to auscultation, Normal air movement, No rhonchi, No wheeze, No rales Cardiovascular: Regular rate, Regular Rhythm, Normal S1, Normal S2 Abdomen: Bowel Sounds Present, Soft, Non Tender, Non-Distended Extremities: No edema, No Calf Tenderness Psych/Mental Status: Normal Affect, Agitated Laboratory Results 08/28/20 16:19: POC Glucose 315 H 08/28/20 21:04: POC Glucose 138 H 08/29/20 06:39: WBC 4.6, RBC 3.88 L, Hgb 11.0 L, Hct 33.0 L, MCV 85.1, MCH 28.4, MCHC 33.3, RDW Std Deviation 42.9, RDW Coeff of Lissa 13.9, Plt Count 132 L, MPV 10.5 08/29/20 06:39: Sodium 138, Potassium 3.9, Chloride 107, Carbon Dioxide 24.0, Anion Gap 7, BUN 31 H, Creatinine 1.12, Estim Creat Clear Calc 64.88, Est GFR (MDRD) Af Amer 84, Est GFR (MDRD) Non-Af 70, BUN/Creatinine Ratio 27.7 H, Glucose 92, Calcium 8.7, Total Bilirubin 0.30, AST 40 H, ALT 22, Alkaline Phosphatase 67, Troponin I 0.064 H, Total Protein 7.6, Albumin 2.3 L, Globulin 5.3 H, Albumin/Globulin Ratio 0.4 L 08/29/20 06:39: D-Dimer Quant (PE/DVT) 0.98 H* 08/29/20 08:44: POC Glucose 89 08/29/20 12:08: POC Glucose 218 H Current Medications Acetaminophen (Acetaminophen 325 Mg Tablet) 650 mg PO Q6H PRN PRN PRN Reason: Pain Score 1-10/Temp > 100.7 F Last Admin: 08/28/20 05:12 Dose: 650 mg Documented by: Amlodipine Besylate (Amlodipine 10 Mg Tablet) 10 mg PO DAILY [facility] Last Admin: 08/29/20 10:21 Dose: 10 mg Documented by: Aspirin (Aspirin 81 Mg Tab.Chew) 81 mg PO DAILY [facility] Last Admin: 08/29/20 10:21 Dose: 81 mg Documented by: Buspirone HCl (Buspirone 5 Mg Tablet) 7.5 mg PO DAILY [facility] Last Admin: 08/29/20 10:22 Dose: 7.5 mg Documented by: Calamine/Phenol (Menthol/Lanolin/Calamine/Znox 113 Gm Tube) 1 applic TOPICAL TID [facility]; Protocol Last Admin: 08/29/20 06:56 Dose: 1 applicatio Documented by: Dexamethasone (Dexamethasone 4 Mg Tablet) 6 mg PO DAILY [facility] Stop: 09/06/20 10:01 Last Admin: 08/29/20 10:21 Dose: 6 mg Documented by: Divalproex Sodium (Divalproex (Er) 500 Mg Tablet) 1,000 mg PO QHS [facility] Last Admin: 08/28/20 21:20 Dose: 1,000 mg Documented by: Enoxaparin Sodium (Enoxaparin 30 Mg/0.3 Ml Syringe) 30 mg SC BID [facility] Last Admin: 08/29/20 10:21 Dose: 30 mg Documented by: Famotidine (Famotidine 20 Mg Tablet) 20 mg PO DAILY [facility] Last Admin: 08/29/20 10:21 Dose: 20 mg Documented by: Gabapentin (Gabapentin 600 Mg Tablet) 600 mg PO TIDCM [facility] Last Admin: 08/29/20 12:42 Dose: 600 mg Documented by: Hydralazine HCl (Hydralazine 25 Mg Tablet) 25 mg PO TID [facility] Last Admin: 08/29/20 06:56 Dose: 25 mg Documented by: Remdesivir 100 mg/ Sodium (Chloride) 250 mls @ 125 mls/hr IV Q24H [facility] Stop: 08/31/20 23:59 Last Infusion: 08/28/20 23:28 Dose: Infused Documented by: Sodium Chloride () 250 mls @ 15 mls/hr IV .[id number] PRN PRN Reason: Saline Flush Insulin Glargine (Insulin Glargine 100 Units/Ml Pen) 30 units SC BID [facility] Last Admin: 08/29/20 12:39 Dose: 30 u Documented by: Insulin Human Lispro (Insulin Lispro 100 Unit/Ml Insuln.Pen) 0 unit SC [facility]; Protocol Last Admin: 08/29/20 12:38 Dose: 2 u Documented by: Insulin Human Lispro (Insulin Lispro 100 Unit/Ml Insuln.Pen) [facility] Last Admin: 08/29/20 12:38 Dose: 8 u Documented by: Lactulose (Lactulose 20 Gm/30 Ml Udc) 20 gm PO DAILY [facility] Last Admin: 08/29/20 10:22 Dose: 20 gm Documented by: Metoprolol Tartrate (Metoprolol Tartrate 50 Mg Tablet) 50 mg PO BID [facility] Last Admin: 08/29/20 10:21 Dose: 50 mg Documented by: Ondansetron HCl (Ondansetron 4 Mg/2 Ml Vial) 4 mg IV Q8H PRN PRN PRN Reason: NAUSEA/VOMITING Pravastatin Sodium (Pravastatin 40 Mg Tablet) 40 mg PO BID [facility] Last Admin: 08/29/20 10:21 Dose: 40 mg Documented by: Primidone (Primidone 50 Mg Tablet) 50 mg PO QHS [facility] Last Admin: 08/28/20 21:20 Dose: 50 mg Documented by: Quetiapine Fumarate (Quetiapine 100 Mg Tablet) 700 mg PO QHS [facility] Last Admin: 08/28/20 21:20 Dose: 700 mg Documented by: Rizatriptan Benzoate (Rizatriptan Benzoate 5 Mg Tablet) 5 mg PO Q2H PRN PRN PRN Reason: MIGRAINE SYMPTOMS Senna/Docusate Sodium (Senna/Docusate Sodium 1 Tablet) 2 tablet PO BID PRN PRN PRN Reason: Constipation Sodium Chloride (0.9% Saline Lock 10 Ml Syringe) 10 - 40 ml IV UD PRN PRN Reason: SALINE FLUSH Last Admin: 08/28/20 21:21 Dose: 10 ml Documented by: Tamsulosin HCl (Tamsulosin Hcl 0.4 Mg Capsule) 0.4 mg PO QHS [facility] Last Admin: 08/28/20 21:20 Dose: 0.4 mg Documented by: Tramadol HCl (Tramadol 50 Mg Tablet) 50 mg PO Q8H PRN PRN PRN Reason: Pain Score 1-10 Zolpidem Tartrate (Zolpidem Tartrate 5 Mg Tablet) 5 mg PO QHS PRN PRN PRN Reason: INSOMNIA Last Admin: 08/28/20 23:45 Dose: 5 mg Documented by: STROKE Vital Signs/Narrative: Vital Signs Temp Pulse Resp BP Pulse Ox 08/29/20 10:26 36.3 C L 66 16 159/69 H 95 08/29/20 10:21 66 Medical Necessity - Tobacco Use Smoking Status: Unknown if ever smoked Assessment/Plan All Active Problems Sepsis (Acute) COVID-19 (Acute) Hypoxia (Acute) 1. acute COVID 19 * on dexa and rem-d 2. suspected pneumococcal pneumonia * CT reviewed and showed CHANDRAKANT and LLL pneumonia * add CTX and azithromycin * check SCx, urinary antigens for strep and legionella * pulm toilet 3. acute hypoxic respiratory insufficiency * 2/2 #1 and 2 * wean oxygen as tolerated 4. DM2 * on high doses of basal and log * cut doses down and observe 5. VTE prophylaxis: LMWH Inpatient E&M: 98787 Subs Hosp L2
--- NOTE | 2020-08-29 15:51 | CASEMGMT ---
NORMA MIJARES NOTE; Call received from Prashanth @ [facility] re: update on pt. He was made aware COVID testing was completed @ [facility] and was +. Faxed copy of + results of COVID to Prashanth at this time @ [phone]. He was made aware plans are for pt to d/c to [facility] and then return to [facility] once out of isolation precautions. Andrei YA RN CM
--- NOTE | 2020-08-29 16:18 | PN.ID_ITS ---
Patient Problems: Active and Suspected Problems Sepsis (Acute) COVID-19 (Acute) Hypoxia (Acute) Subjective: Feeling a little better, no fever, no nausea. - Physical Exam Vitals/I&O's: Vital Signs Temp Pulse Resp BP Pulse Ox 98.0 F 90 16 122/61 H 95 08/29/20 15:15 08/29/20 15:17 08/29/20 15:15 08/29/20 15:15 08/29/20 15:15 Oxygen Flow Rate (L/min) 2 Oxygen Delivery Method Nasal Cannula Weight: 81.6 kg Body Mass Index (BMI) 26.5 Finger Stick Blood Glucose 256 Intake and Output for Last 24 Hours 08/27/20 08/28/20 08/29/20 23:59 23:59 23:59 Intake Total 2519.17 / 2519.17 290 / 290 Output Total 1150 / 1150 300 / 300 Balance 1369.17 / 1369.17 -10 / -10 General: Alert, Cooperative, No apparent distress Lungs: Diminished Cardiovascular: Regular rate, Regular Rhythm Abdomen: Soft, Non Tender, Non-Distended Skin: No rashes Laboratory Results 08/28/20 16:19: POC Glucose 315 H 08/28/20 21:04: POC Glucose 138 H 08/29/20 06:39: WBC 4.6, RBC 3.88 L, Hgb 11.0 L, Hct 33.0 L, MCV 85.1, MCH 28.4, MCHC 33.3, RDW Std Deviation 42.9, RDW Coeff of Lissa 13.9, Plt Count 132 L, MPV 10.5 08/29/20 06:39: Sodium 138, Potassium 3.9, Chloride 107, Carbon Dioxide 24.0, Anion Gap 7, BUN 31 H, Creatinine 1.12, Estim Creat Clear Calc 64.88, Est GFR (MDRD) Af Amer 84, Est GFR (MDRD) Non-Af 70, BUN/Creatinine Ratio 27.7 H, Glucose 92, Calcium 8.7, Total Bilirubin 0.30, AST 40 H, ALT 22, Alkaline Phosphatase 67, Troponin I 0.064 H, Total Protein 7.6, Albumin 2.3 L, Globulin 5.3 H, Albumin/Globulin Ratio 0.4 L 08/29/20 06:39: D-Dimer Quant (PE/DVT) 0.98 H* 08/29/20 08:44: POC Glucose 89 08/29/20 12:08: POC Glucose 218 H Current Medications Acetaminophen (Acetaminophen 325 Mg Tablet) 650 mg PO Q6H PRN PRN PRN Reason: Pain Score 1-10/Temp > 100.7 F Last Admin: 08/28/20 05:12 Dose: 650 mg Documented by: Amlodipine Besylate (Amlodipine 10 Mg Tablet) 10 mg PO DAILY [facility] Last Admin: 08/29/20 10:21 Dose: 10 mg Documented by: Aspirin (Aspirin 81 Mg Tab.Chew) 81 mg PO DAILY [facility] Last Admin: 08/29/20 10:21 Dose: 81 mg Documented by: Buspirone HCl (Buspirone 5 Mg Tablet) 7.5 mg PO DAILY [facility] Last Admin: 08/29/20 10:22 Dose: 7.5 mg Documented by: Calamine/Phenol (Menthol/Lanolin/Calamine/Znox 113 Gm Tube) 1 applic TOPICAL TID [facility]; Protocol Last Admin: 08/29/20 15:06 Dose: 1 applicatio Documented by: Dexamethasone (Dexamethasone 4 Mg Tablet) 6 mg PO DAILY [facility] Stop: 09/06/20 10:01 Last Admin: 08/29/20 10:21 Dose: 6 mg Documented by: Divalproex Sodium (Divalproex (Er) 500 Mg Tablet) 1,000 mg PO QHS [facility] Last Admin: 08/28/20 21:20 Dose: 1,000 mg Documented by: Enoxaparin Sodium (Enoxaparin 30 Mg/0.3 Ml Syringe) 30 mg SC BID [facility] Last Admin: 08/29/20 10:21 Dose: 30 mg Documented by: Famotidine (Famotidine 20 Mg Tablet) 20 mg PO DAILY [facility] Last Admin: 08/29/20 10:21 Dose: 20 mg Documented by: Gabapentin (Gabapentin 600 Mg Tablet) 600 mg PO TIDCM [facility] Last Admin: 08/29/20 12:42 Dose: 600 mg Documented by: Hydralazine HCl (Hydralazine 25 Mg Tablet) 25 mg PO TID [facility] Last Admin: 08/29/20 15:17 Dose: 25 mg Documented by: Remdesivir 100 mg/ Sodium (Chloride) 250 mls @ 125 mls/hr IV Q24H [facility] Stop: 08/31/20 23:59 Last Infusion: 08/28/20 23:28 Dose: Infused Documented by: Sodium Chloride () 250 mls @ 15 mls/hr IV .[id number] PRN PRN Reason: Saline Flush Azithromycin 500 mg/ Dextrose 255 mls @ 250 mls/hr IV Q24 [facility] Ceftriaxone Sodium 2 gm/ (Sodium Chloride) 50 mls @ 100 mls/hr IV Q24 [facility] Insulin Glargine (Insulin Glargine 100 Units/Ml Pen) 30 units SC BID [facility] Last Admin: 08/29/20 12:39 Dose: 30 u Documented by: Insulin Human Lispro (Insulin Lispro 100 Unit/Ml Insuln.Pen) 0 unit SC ACHS [facility]; Protocol Last Admin: 08/29/20 12:38 Dose: 2 u Documented by: Insulin Human Lispro (Insulin Lispro 100 Unit/Ml Insuln.Pen) 8 unit SC TIDCM [facility] Last Admin: 08/29/20 12:38 Dose: 8 u Documented by: Lactulose (Lactulose 20 Gm/30 Ml Udc) 20 gm PO DAILY [facility] Last Admin: 08/29/20 10:22 Dose: 20 gm Documented by: Metoprolol Tartrate (Metoprolol Tartrate 50 Mg Tablet) 50 mg PO BID [facility] Last Admin: 08/29/20 10:21 Dose: 50 mg Documented by: Ondansetron HCl (Ondansetron 4 Mg/2 Ml Vial) 4 mg IV Q8H PRN PRN PRN Reason: NAUSEA/VOMITING Pravastatin Sodium (Pravastatin 40 Mg Tablet) 40 mg PO BID [facility] Last Admin: 08/29/20 10:21 Dose: 40 mg Documented by: Primidone (Primidone 50 Mg Tablet) 50 mg PO QHS [facility] Last Admin: 08/28/20 21:20 Dose: 50 mg Documented by: Quetiapine Fumarate (Quetiapine 100 Mg Tablet) 700 mg PO QHS [facility] Last Admin: 08/28/20 21:20 Dose: 700 mg Documented by: Rizatriptan Benzoate (Rizatriptan Benzoate 5 Mg Tablet) 5 mg PO Q2H PRN PRN PRN Reason: MIGRAINE SYMPTOMS Senna/Docusate Sodium (Senna/Docusate Sodium 1 Tablet) 2 tablet PO BID PRN PRN PRN Reason: Constipation Sodium Chloride (0.9% Saline Lock 10 Ml Syringe) 10 - 40 ml IV UD PRN PRN Reason: SALINE FLUSH Last Admin: 08/28/20 21:21 Dose: 10 ml Documented by: Tamsulosin HCl (Tamsulosin Hcl 0.4 Mg Capsule) 0.4 mg PO QHS [facility] Last Admin: 08/28/20 21:20 Dose: 0.4 mg Documented by: Tramadol HCl (Tramadol 50 Mg Tablet) 50 mg PO Q8H PRN PRN PRN Reason: Pain Score 1-10 Zolpidem Tartrate (Zolpidem Tartrate 5 Mg Tablet) 5 mg PO QHS PRN PRN PRN Reason: INSOMNIA Last Admin: 08/28/20 23:45 Dose: 5 mg Documented by: Medical Necessity - Tobacco Use Smoking Status: Unknown if ever smoked Route of nutrition/ use of supplements: [] Nutritional Intake: [] IV Site: [] Hart Catheter: [] - Assessment/Plan Antibiotics: [] Assessment/Plan: [] Active and Suspected Problems Sepsis (Acute) COVID-19 (Acute) Hypoxia (Acute) covid with hypoxia - sx started around 08/26. Covid (+) at [facility]. Cont dex, remdesivir. No sputum. No fever here. PCT 0.1. D-dimer was 1. On lovenox 30mg bid. CT neg for PE. Sx improving. Plan on quarantine until 09/15/20. Co mplete 10 days of dex. Plan on 2 weeks of xarelto 10mg daily or eliquis 2.5mg bid after discharge. Will follow
[2020-08-29 18:01] LABS: Bedside Glucose 285 mg/dL (70-110)
[2020-08-29] MEDS: Divalproex (ER) 500 MG Tablet 1000 MG PO (22:21)
[2020-08-29] MEDS: QUEtiapine 100 MG Tablet 700 MG PO (22:21)
[2020-08-29] MEDS: Primidone 50 MG Tablet PO (22:22)
[2020-08-29] MEDS: Tamsulosin HCl 0.4 MG Capsule PO (22:22)
[2020-08-30] VITALS (12 sets, daily range): BP systolic 119–162; BP diastolic 67–83; PULSE 44–59; RESP 18–22; TEMP 36.2–37.3; O2SAT 96–98
[2020-08-30 02:56] LABS: Bedside Glucose 356 mg/dL (70-110)
[2020-08-30 06:40] LABS: Hematocrit 33.9 % (40-54); Hemoglobin 11.1 g/dL (13.0-16.5); Mean Corp Hgb Conc 32.7 g/dL (32-36); Mean Corpuscular Volume 85.6 fL (80-94); Mean Platelet Vol. 10.8 fl (6.2-12.0); Platelet Count 140 K/mm3 (150-450); RBC Distribution Width CV 13.7 % (11.6-14.6); Red Blood Count 3.96 M/mm3 (4.6-6.2); White Blood Count 3.2 K/mm3 (4.4-11.0)
[2020-08-30] MEDS: Menthol/Lanolin/Calamine/Znox 113 GM Tube 1 APPLIC TOPICAL ×3 (06:44→21:10)
[2020-08-30 07:08] LABS: ALB/GLOB Ratio 0.5 RATIO (0.9-2.4); AST(SGOT) 30 U/L (15-37); Alanine Aminotransfer ALT/SGPT 20 U/L (16-61); Albumin, Serum 2.3 g/dL (3.2-5.0); Alkaline Phosphatase 70 U/L (45-117); Anion Gap 6 (5-15); BUN 36 mg/dL (7-18); BUN/Creat Ratio 34.6 RATIO (10-20); Calcium,Total 8.4 mg/dL (8.5-10.1); Chloride 109 mmol/L (98-107); Creatinine, Serum 1.04 mg/dL (0.70-1.30); EST Glomerular Filtration Rate 76 mL/min (>60); Est Glom Filt Rate - Afr Amer 92 mL/min (>60); Estimated Creatinine Clearance 69.87 ml/min; Globulin 4.8 g/dL (2.2-4.2); Glucose 259 mg/dL (74-106); Potassium 4.1 mmol/L (3.5-5.1); Protein, Total 7.1 g/dL (6.4-8.2); Sodium Level 139 mmol/L (136-145)
[2020-08-30] MEDS: hydrALAZINE 25 MG Tablet PO ×3 (07:08→21:09)
[2020-08-30] MEDS: amLODIPine 10 MG Tablet PO (08:39)
[2020-08-30] MEDS: Enoxaparin 30 MG/0.3 ML Syringe SC ×2 (08:39→21:25)
[2020-08-30] MEDS: busPIRone 5 MG Tablet 7.5 MG PO (08:40)
[2020-08-30] MEDS: Gabapentin 600 MG Tablet PO ×3 (08:40→17:59)
[2020-08-30] MEDS: Aspirin 81 MG TAB.CHEW PO (08:40)
[2020-08-30] MEDS: Famotidine 20 MG Tablet PO (08:41)
[2020-08-30] MEDS: dexAMETHasone 4 MG Tablet 6 MG PO (08:41)
[2020-08-30] MEDS: Lactulose 20 GM/30 ML UDC PO (08:41)
[2020-08-30] MEDS: Pravastatin 40 MG Tablet PO ×2 (08:41→21:27)
[2020-08-30] MEDS: Insulin Lispro 100 UNIT/ML INSULN.PEN SC ×4 (08:43→21:11)
[2020-08-30] MEDS: Insulin Lispro 100 UNIT/ML INSULN.PEN 12 UNIT SC ×3 (08:44→17:19)
--- NOTE | 2020-08-30 09:59 | CASEMGMT ---
SW spoke w/physician. Pt is not ready for discharge today, but may be ready on the weekend. SW spoke w/Jana at [facility], let her know pt may be ready on weekend, she will start precert process and let SW know if he is able to return on the weekend. SW faxed updates, will continue to follow. KHADIJAH Samson
[2020-08-30 10:06] LABS: Bedside Glucose 217 mg/dL (70-110)
[2020-08-30 13:00] LABS: Bedside Glucose 321 mg/dL (70-110)
--- NOTE | 2020-08-30 13:29 | CASEMGMT ---
SW spoke w/Jana from [facility], they can take pt back whenever he is ready. SW called pt's brother Rober Houser, let him know it is anticipated pt will be able to return to [facility] tomorrow or on the weekend, not today. Brother states understanding. Green sheet placed on chart in anticipation of discharge over the weekend. KHADIJAH Samson
--- NOTE | 2020-08-30 14:40 | PCM.PN.HOSP ---
Patient Problems: Active and Suspected Problems Sepsis (Acute) COVID-19 (Acute) Hypoxia (Acute) Reason for Visit: COVID 19 Subjective: complains of cough Vitals/I&O's: Vital Signs Temp Pulse Resp BP Pulse Ox 36.2 C L 59 L 18 119/69 96 08/30/20 08:36 08/30/20 12:31 08/30/20 08:36 08/30/20 08:36 08/30/20 10:12 Oxygen Flow Rate (L/min) 2 Oxygen Delivery Method Nasal Cannula Weight: 81.6 kg Body Mass Index (BMI) 26.5 Finger Stick Blood Glucose 256 Intake and Output for Last 24 Hours 08/28/20 08/29/20 08/30/20 23:59 23:59 23:59 Intake Total 2519.17 / 2519.17 985 / 985 985 / 985 Output Total 1150 / 1150 500 / 500 1225 / 1225 Balance 1369.17 / 1369.17 485 / 485 -240 / -240 General: Alert, No apparent distress HEENT: Atraumatic, Normocephalic Oral: Moist Mucosa, No Gingival or Mucosal Lesions/ Ulcerations Neck: No Nodes, Thyroid Normal Size and Texture Lungs: Clear to auscultation, Normal air movement, No rhonchi, No wheeze, No rales Cardiovascular: Regular rate, Regular Rhythm, Normal S1, Normal S2, No murmurs Abdomen: Bowel Sounds Present, Soft, Non Tender, Non-Distended, No Hepato-splenomegaly Extremities: No edema, No Calf Tenderness Psych/Mental Status: Normal Affect, Appropriate Microbiology Past 72 Hours 08/28/20 01:25 Blood Culture (Wb) - Left Wrist Blood Culture - Preliminary No growth in 48 hours. 08/28/20 00:00 Blood Culture (Wb) - Anticubital Left Blood Culture - Preliminary No growth in 48 hours. 08/29/20 18:10 Urine, Random Streptococcus pneumoniae Antigen (M - Final 08/29/20 18:10 Urine, Random Legionella Antigen - Final Laboratory Results 08/29/20 17:46: POC Glucose 285 H 08/29/20 22:06: POC Glucose 356 H 08/30/20 06:25: WBC 3.2 L, RBC 3.96 L, Hgb 11.1 L, Hct 33.9 L, MCV 85.6, MCH 28.0, MCHC 32.7, RDW Std Deviation 43.0, RDW Coeff of Lissa 13.7, Plt Count 140 L, MPV 10.8 08/30/20 06:25: Sodium 139, Potassium 4.1, Chloride 109 H, Carbon Dioxide 24.0, Anion Gap 6, BUN 36 H, Creatinine 1.04, Estim Creat Clear Calc 69.87, Est GFR (MDRD) Af Amer 92, Est GFR (MDRD) Non-Af 76, BUN/Creatinine Ratio 34.6 H, Glucose 259 H, Calcium 8.4 L, Total Bilirubin 0.30, AST 30, ALT 20, Alkaline Phosphatase 70, Total Protein 7.1, Albumin 2.3 L, Globulin 4.8 H, Albumin/Globulin Ratio 0.5 L 08/30/20 08:34: POC Glucose 217 H 08/30/20 12:29: POC Glucose 321 H Current Medications Acetaminophen (Acetaminophen 325 Mg Tablet) 650 mg PO Q6H PRN PRN PRN Reason: Pain Score 1-10/Temp > 100.7 F Last Admin: 08/28/20 05:12 Dose: 650 mg Documented by: Amlodipine Besylate (Amlodipine 10 Mg Tablet) 10 mg PO DAILY [facility] Last Admin: 08/30/20 08:39 Dose: 10 mg Documented by: Aspirin (Aspirin 81 Mg Tab.Chew) 81 mg PO DAILY [facility] Last Admin: 08/30/20 08:40 Dose: 81 mg Documented by: Buspirone HCl (Buspirone 5 Mg Tablet) 7.5 mg PO DAILY [facility] Last Admin: 08/30/20 08:40 Dose: 7.5 mg Documented by: Calamine/Phenol (Menthol/Lanolin/Calamine/Znox 113 Gm Tube) 1 applic TOPICAL TID [facility]; Protocol Last Admin: 08/30/20 12:36 Dose: 1 applicatio Documented by: Dexamethasone (Dexamethasone 4 Mg Tablet) 6 mg PO DAILY [facility] Stop: 09/06/20 10:01 Last Admin: 08/30/20 08:41 Dose: 6 mg Documented by: Divalproex Sodium (Divalproex (Er) 500 Mg Tablet) 1,000 mg PO QHS [facility] Last Admin: 08/29/20 22:21 Dose: 1,000 mg Documented by: Enoxaparin Sodium (Enoxaparin 30 Mg/0.3 Ml Syringe) 30 mg SC BID [facility] Last Admin: 08/30/20 08:39 Dose: 30 mg Documented by: Famotidine (Famotidine 20 Mg Tablet) 20 mg PO DAILY [facility] Last Admin: 08/30/20 08:41 Dose: 20 mg Documented by: Gabapentin (Gabapentin 600 Mg Tablet) 600 mg PO TIDCM [facility] Last Admin: 08/30/20 12:31 Dose: 600 mg Documented by: Hydralazine HCl (Hydralazine 25 Mg Tablet) 25 mg PO TID [facility] Last Admin: 08/30/20 12:31 Dose: 25 mg Documented by: Remdesivir 100 mg/ Sodium (Chloride) 250 mls @ 125 mls/hr IV Q24H [facility] Stop: 08/31/20 23:59 Last Infusion: 08/30/20 02:26 Dose: Infused Documented by: Sodium Chloride () 250 mls @ 15 mls/hr IV .[id number] PRN PRN Reason: Saline Flush Azithromycin 500 mg/ Dextrose 255 mls @ 250 mls/hr IV Q24 [facility] Last Infusion: 08/30/20 10:57 Dose: Infused Documented by: Ceftriaxone Sodium 2 gm/ (Sodium Chloride) 50 mls @ 100 mls/hr IV Q24 [facility] Last Infusion: 08/30/20 09:21 Dose: Infused Documented by: Insulin Glargine (Insulin Glargine 100 Units/Ml Pen) 45 units SC BID [facility] Last Admin: 08/30/20 08:42 Dose: 45 units Documented by: Insulin Human Lispro (Insulin Lispro 100 Unit/Ml Insuln.Pen) 0 unit SC [facility]; Protocol Last Admin: 08/30/20 12:30 Dose: 5 u Documented by: Insulin Human Lispro (Insulin Lispro 100 Unit/Ml Insuln.Pen) [facility] Last Admin: 08/30/20 12:30 Dose: 12 units Documented by: Lactulose (Lactulose 20 Gm/30 Ml Udc) 20 gm PO DAILY [facility] Last Admin: 08/30/20 08:41 Dose: 20 gm Documented by: Metoprolol Tartrate (Metoprolol Tartrate 50 Mg Tablet) 50 mg PO BID [facility] Last Admin: 08/30/20 09:02 Dose: Not Given Documented by: Ondansetron HCl (Ondansetron 4 Mg/2 Ml Vial) 4 mg IV Q8H PRN PRN PRN Reason: NAUSEA/VOMITING Pravastatin Sodium (Pravastatin 40 Mg Tablet) 40 mg PO BID [facility] Last Admin: 08/30/20 08:41 Dose: 40 mg Documented by: Primidone (Primidone 50 Mg Tablet) 50 mg PO QHS [facility] Last Admin: 08/29/20 22:22 Dose: 50 mg Documented by: Quetiapine Fumarate (Quetiapine 100 Mg Tablet) 700 mg PO QHS [facility] Last Admin: 08/29/20 22:21 Dose: 700 mg Documented by: Rizatriptan Benzoate (Rizatriptan Benzoate 5 Mg Tablet) 5 mg PO Q2H PRN PRN PRN Reason: MIGRAINE SYMPTOMS Senna/Docusate Sodium (Senna/Docusate Sodium 1 Tablet) 2 tablet PO BID PRN PRN PRN Reason: Constipation Sodium Chloride (0.9% Saline Lock 10 Ml Syringe) 10 - 40 ml IV UD PRN PRN Reason: SALINE FLUSH Last Admin: 08/28/20 21:21 Dose: 10 ml Documented by: Tamsulosin HCl (Tamsulosin Hcl 0.4 Mg Capsule) 0.4 mg PO QHS [facility] Last Admin: 08/29/20 22:22 Dose: 0.4 mg Documented by: Tramadol HCl (Tramadol 50 Mg Tablet) 50 mg PO Q8H PRN PRN PRN Reason: Pain Score 1-10 Zolpidem Tartrate (Zolpidem Tartrate 5 Mg Tablet) 5 mg PO QHS PRN PRN PRN Reason: INSOMNIA Last Admin: 08/28/20 23:45 Dose: 5 mg Documented by: STROKE Vital Signs/Narrative: Vital Signs Pulse 08/30/20 12:31 59 L Medical Necessity - Tobacco Use Smoking Status: Unknown if ever smoked Assessment/Plan All Active Problems Sepsis (Acute) COVID-19 (Acute) Hypoxia (Acute) 1. acute COVID 19 on dexa and rem-d 2. suspected pneumococcal pneumonia CT reviewed and showed CHANDRAKANT and LLL pneumonia continue CTX and azithromycin check SCx, urinary antigens for strep and legionella negative pulm toilet 3. acute hypoxic respiratory insufficiency 2/2 #1 and 2 wean oxygen as tolerated 4. DM2 on high doses of basal and log as outpt of 96 BID and 64 TID, respectively concern for hypoglycemia, so slowly increasing dosing upwards, now Basal 45 BID, log 12 TID 5. VTE prophylaxis: LMWH Disposition: medically ready hopefully in 24-48h. Inpatient E&M: 46469 Subs Hosp L2
[2020-08-30 15:11] LABS: Bedside Glucose 342 mg/dL (70-110)
[2020-08-30] MEDS: Tamsulosin HCl 0.4 MG Capsule PO (21:10)
[2020-08-30] MEDS: Divalproex (ER) 500 MG Tablet 1000 MG PO (21:10)
[2020-08-30] MEDS: Primidone 50 MG Tablet PO (21:27)
[2020-08-30] MEDS: QUEtiapine 100 MG Tablet 700 MG PO (21:27)
[2020-08-30 21:36] LABS: Bedside Glucose 446 mg/dL (70-110)
[2020-08-31] VITALS (11 sets, daily range): BP systolic 123–167; BP diastolic 58–84; PULSE 47–70; RESP 16–18; TEMP 36–36.6; O2SAT 94–97
[2020-08-31 05:27] LABS: Hematocrit 33.9 % (40-54); Mean Corp Hgb Conc 32.4 g/dL (32-36); Mean Corpuscular Hgb 27.2 pg (27.0-32.0); Mean Corpuscular Volume 83.9 fL (80-94); Platelet Count 158 K/mm3 (150-450); RBC Distribution Width CV 13.5 % (11.6-14.6); RBC Distribution Width SD 42.1 fl (35.1-43.9); Red Blood Count 4.04 M/mm3 (4.6-6.2)
[2020-08-31 05:57] LABS: ALB/GLOB Ratio 0.4 RATIO (0.9-2.4); AST(SGOT) 23 U/L (15-37); Alanine Aminotransfer ALT/SGPT 22 U/L (16-61); Albumin, Serum 2.3 g/dL (3.2-5.0); Alkaline Phosphatase 83 U/L (45-117); Anion Gap 7 (5-15); BUN 36 mg/dL (7-18); BUN/Creat Ratio 32.7 RATIO (10-20); Calcium,Total 8.7 mg/dL (8.5-10.1); Chloride 104 mmol/L (98-107); EST Glomerular Filtration Rate 71 mL/min (>60); Est Glom Filt Rate - Afr Amer 86 mL/min (>60); Estimated Creatinine Clearance 66.06 ml/min; Globulin 5.3 g/dL (2.2-4.2); Glucose 336 mg/dL (74-106); Potassium 3.9 mmol/L (3.5-5.1); Protein, Total 7.6 g/dL (6.4-8.2); Sodium Level 135 mmol/L (136-145)
[2020-08-31] MEDS: hydrALAZINE 25 MG Tablet PO ×3 (06:21→22:38)
[2020-08-31] MEDS: Menthol/Lanolin/Calamine/Znox 113 GM Tube 1 APPLIC TOPICAL ×3 (06:22→23:38)
[2020-08-31] MEDS: Gabapentin 600 MG Tablet PO ×3 (08:47→16:40)
[2020-08-31] MEDS: Aspirin 81 MG TAB.CHEW PO (08:47)
[2020-08-31] MEDS: dexAMETHasone 4 MG Tablet 6 MG PO (08:48)
[2020-08-31] MEDS: busPIRone 5 MG Tablet 7.5 MG PO (08:48)
[2020-08-31] MEDS: Enoxaparin 30 MG/0.3 ML Syringe SC ×2 (08:48→22:38)
[2020-08-31] MEDS: Lactulose 20 GM/30 ML UDC PO (08:48)
[2020-08-31] MEDS: amLODIPine 10 MG Tablet PO (08:49)
[2020-08-31] MEDS: Famotidine 20 MG Tablet PO (08:50)
[2020-08-31] MEDS: Pravastatin 40 MG Tablet PO ×2 (08:50→22:37)
[2020-08-31] MEDS: Insulin Lispro 100 UNIT/ML INSULN.PEN SC ×3 (09:02→16:39)
[2020-08-31] MEDS: Insulin Lispro 100 UNIT/ML INSULN.PEN 12 UNIT SC ×2 (09:02→11:45)
--- NOTE | 2020-08-31 09:04 | PCM.PN.HOSP ---
Patient Problems: Active and Suspected Problems Sepsis (Acute) COVID-19 (Acute) Hypoxia (Acute) Reason for Visit: Follow-up for COVID-19 pneumonia Objective: Heart rate in the upper 40s to 50s. On 3 L of oxygen. Afebrile. Patient has dry cough. He has right foot ulcer on the ball of toe on plantar surface. Physical exam General: Alert, Oriented x3, Cooperative HEENT: Atraumatic, PERRLA, EOMI, Normocephalic Oral: No Gingival or Mucosal Lesions/ Ulcerations Neck: Supple, No JVD, Negative Carotid Bruits Lungs: Air entry diminished in bilateral lung bases. Bilateral expiratory rhonchi present. Cardiovascular: Regular rate, Regular Rhythm, Normal S1, Normal S2, No murmurs Abdomen: Bowel Sounds Present, Soft, Non Tender, Non-Distended : No renal angle tenderness. No suprapubic tenderness. Extremities: No edema, Capillary Refill Less than 3 Seconds Skin: Ulcer on the ball of great toe on right foot. Mild bloody staining on the dressing. Musculoskeletal: No Tenderness to Palpation of Joints or Extremities. Weakness of bilateral lower extremity at hip and knee joints, 4+/5. Mild muscle atrophy. Neurological: Cranial nerves II-XII grossly intact, Deep Tendon Reflexes 2+/4 and Symmetrical, Neuro grossly intact Psych/Mental Status: Normal Affect, Appropriate. Vitals/I&O's: Vital Signs Temp Pulse Resp BP Pulse Ox 97.7 F L 53 L 18 123/63 H 96 08/31/20 06:23 08/31/20 06:23 08/31/20 06:23 08/31/20 06:23 08/31/20 07:17 Oxygen Flow Rate (L/min) 3 Oxygen Delivery Method Nasal Cannula Weight: 179 lb 14.355 oz Body Mass Index (BMI) 26.5 Finger Stick Blood Glucose 256 Intake and Output for Last 24 Hours 08/29/20 08/30/20 08/31/20 23:59 23:59 23:59 Intake Total 985 / 985 1535.25 / 1535.25 Output Total 500 / 500 1675 / 1675 Balance 485 / 485 -139.75 / -139.75 . Microbiology Past 72 Hours 08/28/20 01:25 Blood Culture (Wb) - Left Wrist Blood Culture - Preliminary No growth in 48 hours. 08/28/20 00:00 Blood Culture (Wb) - Anticubital Left Blood Culture - Preliminary No growth in 48 hours. 08/29/20 18:10 Urine, Random Streptococcus pneumoniae Antigen (M - Final 08/29/20 18:10 Urine, Random Legionella Antigen - Final Laboratory Results 08/30/20 08:34: POC Glucose 217 H 08/30/20 12:29: POC Glucose 321 H 08/30/20 15:05: POC Glucose 342 H 08/30/20 21:00: POC Glucose 446 H 08/31/20 05:08: WBC 4.0 L, RBC 4.04 L, Hgb 11.0 L, Hct 33.9 L, MCV 83.9, MCH 27.2, MCHC 32.4, RDW Std Deviation 42.1, RDW Coeff of Lissa 13.5, Plt Count 158, MPV 11.0 08/31/20 05:08: Sodium 135 L, Potassium 3.9, Chloride 104, Carbon Dioxide 24.0, Anion Gap 7, BUN 36 H, Creatinine 1.10, Estim Creat Clear Calc 66.06, Est GFR (MDRD) Af Amer 86, Est GFR (MDRD) Non-Af 71, BUN/Creatinine Ratio 32.7 H, Glucose 336 H, Calcium 8.7, Total Bilirubin 0.10 L, AST 23, ALT 22, Alkaline Phosphatase 83, Total Protein 7.6, Albumin 2.3 L, Globulin 5.3 H, Albumin/Globulin Ratio 0.4 L Current Medications Acetaminophen (Acetaminophen 325 Mg Tablet) 650 mg PO Q6H PRN PRN PRN Reason: Pain Score 1-10/Temp > 100.7 F Last Admin: 08/28/20 05:12 Dose: 650 mg Documented by: Amlodipine Besylate (Amlodipine 10 Mg Tablet) 10 mg PO DAILY [facility] Last Admin: 08/31/20 08:49 Dose: 10 mg Documented by: Aspirin (Aspirin 81 Mg Tab.Chew) 81 mg PO DAILY [facility] Last Admin: 08/31/20 08:47 Dose: 81 mg Documented by: Buspirone HCl (Buspirone 5 Mg Tablet) 7.5 mg PO DAILY [facility] Last Admin: 08/31/20 08:48 Dose: 7.5 mg Documented by: Calamine/Phenol (Menthol/Lanolin/Calamine/Znox 113 Gm Tube) 1 applic TOPICAL TID [facility]; Protocol Last Admin: 08/31/20 06:22 Dose: 1 applicatio Documented by: Dexamethasone (Dexamethasone 4 Mg Tablet) 6 mg PO DAILY [facility] Stop: 09/06/20 10:01 Last Admin: 08/31/20 08:48 Dose: 6 mg Documented by: Divalproex Sodium (Divalproex (Er) 500 Mg Tablet) 1,000 mg PO QHS [facility] Last Admin: 08/30/20 21:10 Dose: 1,000 mg Documented by: Enoxaparin Sodium (Enoxaparin 30 Mg/0.3 Ml Syringe) 30 mg SC BID [facility] Last Admin: 08/31/20 08:48 Dose: 30 mg Documented by: Famotidine (Famotidine 20 Mg Tablet) 20 mg PO DAILY [facility] Last Admin: 08/31/20 08:50 Dose: 20 mg Documented by: Gabapentin (Gabapentin 600 Mg Tablet) 600 mg PO TIDCM [facility] Last Admin: 08/31/20 08:47 Dose: 600 mg Documented by: Hydralazine HCl (Hydralazine 25 Mg Tablet) 25 mg PO TID [facility] Last Admin: 08/31/20 06:21 Dose: 25 mg Documented by: Remdesivir 100 mg/ Sodium (Chloride) 250 mls @ 125 mls/hr IV Q24H [facility] Stop: 08/31/20 23:59 Last Infusion: 08/30/20 23:12 Dose: Infused Documented by: Sodium Chloride () 250 mls @ 15 mls/hr IV .[id number] PRN PRN Reason: Saline Flush Last Infusion: 08/31/20 00:53 Dose: 0 mls/hr Documented by: Azithromycin 500 mg/ Dextrose 255 mls @ 250 mls/hr IV Q24 [facility] Last Infusion: 08/30/20 10:57 Dose: Infused Documented by: Ceftriaxone Sodium 2 gm/ (Sodium Chloride) 50 mls @ 100 mls/hr IV Q24 [facility] Last Infusion: 08/30/20 09:21 Dose: Infused Documented by: Insulin Glargine (Insulin Glargine 100 Units/Ml Pen) 45 units SC BID [facility] Last Admin: 08/30/20 21:11 Dose: 45 units Documented by: Insulin Human Lispro (Insulin Lispro 100 Unit/Ml Insuln.Pen) 0 unit SC ACHS [facility]; Protocol Last Admin: 08/30/20 21:11 Dose: 7 u Documented by: Insulin Human Lispro (Insulin Lispro 100 Unit/Ml Insuln.Pen) 12 unit SC TIDCM [facility] Last Admin: 08/30/20 17:19 Dose: 12 units Documented by: Lactulose (Lactulose 20 Gm/30 Ml Udc) 20 gm PO DAILY [facility] Last Admin: 08/31/20 08:48 Dose: 20 gm Documented by: Metoprolol Tartrate (Metoprolol Tartrate 50 Mg Tablet) 50 mg PO BID [facility] Last Admin: 08/31/20 08:48 Dose: Not Given Documented by: Ondansetron HCl (Ondansetron 4 Mg/2 Ml Vial) 4 mg IV Q8H PRN PRN PRN Reason: NAUSEA/VOMITING Pravastatin Sodium (Pravastatin 40 Mg Tablet) 40 mg PO BID [facility] Last Admin: 08/31/20 08:50 Dose: 40 mg Documented by: Primidone (Primidone 50 Mg Tablet) 50 mg PO QHS [facility] Last Admin: 08/30/20 21:27 Dose: 50 mg Documented by: Quetiapine Fumarate (Quetiapine 100 Mg Tablet) 700 mg PO QHS [facility] Last Admin: 08/30/20 21:27 Dose: 700 mg Documented by: Rizatriptan Benzoate (Rizatriptan Benzoate 5 Mg Tablet) 5 mg PO Q2H PRN PRN PRN Reason: MIGRAINE SYMPTOMS Senna/Docusate Sodium (Senna/Docusate Sodium 1 Tablet) 2 tablet PO BID PRN PRN PRN Reason: Constipation Sodium Chloride (0.9% Saline Lock 10 Ml Syringe) 10 - 40 ml IV UD PRN PRN Reason: SALINE FLUSH Last Admin: 08/28/20 21:21 Dose: 10 ml Documented by: Tamsulosin HCl (Tamsulosin Hcl 0.4 Mg Capsule) 0.4 mg PO QHS [facility] Last Admin: 08/30/20 21:10 Dose: 0.4 mg Documented by: Tramadol HCl (Tramadol 50 Mg Tablet) 50 mg PO Q8H PRN PRN PRN Reason: Pain Score 1-10 Zolpidem Tartrate (Zolpidem Tartrate 5 Mg Tablet) 5 mg PO QHS PRN PRN PRN Reason: INSOMNIA Last Admin: 08/28/20 23:45 Dose: 5 mg Documented by: STROKE Vital Signs/Narrative: Vital Signs Temp Pulse Resp BP Pulse Ox 08/31/20 07:17 96 08/31/20 06:23 97.7 F L 53 L 18 123/63 H 97 08/31/20 06:21 53 L 123/63 H Medical Necessity - Tobacco Use Smoking Status: Unknown if ever smoked Assessment/Plan All Active Problems Sepsis (Acute) COVID-19 (Acute) Hypoxia (Acute) This is a 64 years old male patient presented to the emergency room from long term because of shortness of breath and because he tested positive for COVID-19 yesterday and is being admitted for acute COVID-19 pneumonia with acute hypoxic respiratory insufficiency as well as acute kidney injury and abnormal cardiac enzymes. 1. acute COVID 19 pneumonia on Decadron and remdesivir on dexa and remdesivir. 2. suspected pneumococcal pneumonia CT reviewed and showed CHANDRAKANT and LLL pneumonia continue ceftriaxone. Patient had 3 days of azithromycin. check SCx, urinary antigens for strep and legionella negative Bronchopulmonary hygiene with incentive spirometry and chest physiotherapy. 3. acute hypoxic respiratory insufficiency Secondary to COVID-19 pneumonia and bacterial pneumonia wean oxygen as tolerated 4. DM2 on high doses of basal and log as outpt of 96 BID and 64 TID, respectively concern for hypoglycemia, so slowly increasing dosing upwards, now Basal 45 BID, log 12 TID 5. VTE prophylaxis: LMWH Microbiology Past 72 Hours 08/28/20 01:25 Blood Culture (Wb) - Left Wrist Blood Culture - Preliminary No growth in 48 hours. 08/28/20 00:00 Blood Culture (Wb) - Anticubital Left Blood Culture - Preliminary No growth in 48 hours. 08/29/20 18:10 Urine, Random Streptococcus pneumoniae Antigen (M - Final 08/29/20 18:10 Urine, Random Legionella Antigen - Final Laboratory Results 08/30/20 15:05: POC Glucose 342 H 08/30/20 21:00: POC Glucose 446 H 08/31/20 05:08: WBC 4.0 L, RBC 4.04 L, Hgb 11.0 L, Hct 33.9 L, MCV 83.9, MCH 27.2, MCHC 32.4, RDW Std Deviation 42.1, RDW Coeff of Lissa 13.5, Plt Count 158, MPV 11.0 08/31/20 05:08: Sodium 135 L, Potassium 3.9, Chloride 104, Carbon Dioxide 24.0, Anion Gap 7, BUN 36 H, Creatinine 1.10, Estim Creat Clear Calc 66.06, Est GFR (MDRD) Af Amer 86, Est GFR (MDRD) Non-Af 71, BUN/Creatinine Ratio 32.7 H, Glucose 336 H, Calcium 8.7, Total Bilirubin 0.10 L, AST 23, ALT 22, Alkaline Phosphatase 83, Total Protein 7.6, Albumin 2.3 L, Globulin 5.3 H, Albumin/Globulin Ratio 0.4 L 08/31/20 08:32: POC Glucose 285 H 08/31/20 11:43: POC Glucose 403 H Inpatient E&M: 25399 Subs Hosp L2
[2020-08-31 09:15] LABS: Bedside Glucose 285 mg/dL (70-110)
[2020-08-31 12:15] LABS: Bedside Glucose 403 mg/dL (70-110)
[2020-08-31] MEDS: Insulin Lispro 100 UNIT/ML INSULN.PEN 20 UNIT SC (16:40)
[2020-08-31 17:26] LABS: Bedside Glucose 474 mg/dL (70-110)
[2020-08-31] MEDS: Tamsulosin HCl 0.4 MG Capsule PO (22:37)
[2020-08-31] MEDS: Metoprolol Tartrate 50 MG Tablet PO (22:37)
[2020-08-31] MEDS: Primidone 50 MG Tablet PO (22:37)
[2020-08-31] MEDS: Divalproex (ER) 500 MG Tablet 1000 MG PO (22:38)
[2020-08-31] MEDS: QUEtiapine 100 MG Tablet 700 MG PO (23:36)
[2020-09-01] VITALS (7 sets, daily range): BP systolic 134–139; BP diastolic 69–74; PULSE 51–61; RESP 14–19; TEMP 36.1–37.1; O2SAT 95
[2020-09-01 00:45] LABS: Bedside Glucose > 500 mg/dL (70-110)
[2020-09-01 00:50] LABS: Bedside Glucose 426 mg/dL (70-110)
[2020-09-01] MEDS: Insulin Lispro 100 UNIT/ML INSULN.PEN 15 UNIT SC (04:05)
[2020-09-01 04:16] LABS: Bedside Glucose 360 mg/dL (70-110)
[2020-09-01] MEDS: Menthol/Lanolin/Calamine/Znox 113 GM Tube 1 APPLIC TOPICAL (06:57)
[2020-09-01] MEDS: hydrALAZINE 25 MG Tablet PO ×2 (07:02→11:53)
[2020-09-01 08:08] LABS: ALB/GLOB Ratio 0.4 RATIO (0.9-2.4); AST(SGOT) 18 U/L (15-37); Alanine Aminotransfer ALT/SGPT 19 U/L (16-61); Albumin, Serum 2.4 g/dL (3.2-5.0); Alkaline Phosphatase 88 U/L (45-117); Anion Gap 6 (5-15); BUN 40 mg/dL (7-18); BUN/Creat Ratio 38.8 RATIO (10-20); Calcium,Total 9.3 mg/dL (8.5-10.1); Chloride 107 mmol/L (98-107); Creatinine, Serum 1.03 mg/dL (0.70-1.30); EST Glomerular Filtration Rate 77 mL/min (>60); Est Glom Filt Rate - Afr Amer 93 mL/min (>60); Estimated Creatinine Clearance 70.55 ml/min; Globulin 5.5 g/dL (2.2-4.2); Glucose 289 mg/dL (74-106); Potassium 3.8 mmol/L (3.5-5.1); Protein, Total 7.9 g/dL (6.4-8.2); Sodium Level 137 mmol/L (136-145)
[2020-09-01] MEDS: Enoxaparin 30 MG/0.3 ML Syringe SC (08:17)
[2020-09-01] MEDS: dexAMETHasone 4 MG Tablet 6 MG PO (08:18)
[2020-09-01] MEDS: amLODIPine 10 MG Tablet PO (08:18)
[2020-09-01] MEDS: busPIRone 5 MG Tablet 7.5 MG PO (08:18)
[2020-09-01] MEDS: Lactulose 20 GM/30 ML UDC PO (08:18)
[2020-09-01] MEDS: Insulin Lispro 100 UNIT/ML INSULN.PEN 20 UNIT SC ×2 (08:19→11:54)
[2020-09-01] MEDS: Famotidine 20 MG Tablet PO (08:19)
[2020-09-01] MEDS: Gabapentin 600 MG Tablet PO ×2 (08:19→11:53)
[2020-09-01] MEDS: Aspirin 81 MG TAB.CHEW PO (08:19)
[2020-09-01] MEDS: Pravastatin 40 MG Tablet PO (08:19)
[2020-09-01 08:31] LABS: Bedside Glucose 274 mg/dL (70-110)
[2020-09-01 09:10] LABS: Hemoglobin 11.7 g/dL (13.0-16.5); Mean Corp Hgb Conc 32.5 g/dL (32-36); Mean Corpuscular Hgb 27.3 pg (27.0-32.0); Mean Corpuscular Volume 84.1 fL (80-94); Mean Platelet Vol. 10.7 fl (6.2-12.0); Platelet Count 191 K/mm3 (150-450); RBC Distribution Width CV 13.7 % (11.6-14.6); Red Blood Count 4.28 M/mm3 (4.6-6.2); White Blood Count 5.8 K/mm3 (4.4-11.0)
--- NOTE | 2020-09-01 10:07 | PCM.TXEXTCAR ---
- Diet 08/28/20 03:41 Diet: Cardiac - Heart Healthy Food consistency:: Regular Liquid Consistency:: Regular/Thin Dietary Modifications:: Consistent Carbohydrate Type of Dietary Supplement:: Renny Diet Comments: Renny 1 pkt BID w/ L&D / 120 ml glucerna shake w/ meals - Routine Orders/Code Status Suppository Type: Dulcolax 10mg Suppository Frequency: Daily PRN Routine Lab Work: CBC - In 1 week, [facility] Code Status: Full Code - Wound(s) left flank Wound Type: Abrasion head Wound Type: Open Surgical Wound Dressing Change: Adaptic rt heel Wound Type: Neuropathic/Diabetic Foot Ulcer Dressing Change: AntiMicrobial (Aquacel AG, etc) rt ball of foot Wound Type: Neuropathic/Diabetic Foot Ulcer Dressing Change: AntiMicrobial (Aquacel AG, etc) - Therapies Weight Bearing: Weight bearing as tolerated Extremity Affected:: Bilateral Lower Physical Therapy: Eval and Treat Occupational Therapy: Eval and Treat Speech Therapy: Eval and Treat - Allergies/Procedures Done in Hospital Allergies/Adverse Reactions: Allergies HYDROCODONE Allergy (Uncoded 08/27/20 23:52) Unknown - Type of Care/Length of Stay Estimated LOS: Convalescent Care Less Than 30 days Type of Care Needed: Skilled Rehab Potential: Good Prognosis: Good - Additional Orders/Day of Discharge Additional Orders: Patient advised to follow-up with psychiatrist in 2 to 3 weeks as he was on multiple medications with QTC prolongation including Seroquel, Zofran, Imitrex and hydroxyzine. Hydroxyzine and Zofran discontinued. Patient not clear of the indication for Seroquel but probably has bipolar disorder. Day of Discharge: 09/01/20 - Dietary and Speech Recommendations Dietitian Recommendations/Changes: Will contine Renny bid w/ meals. Will provide 120 ml Glucerna shake w/ meals d/t suboptimal po intake. - Follow Up Care Primary Care Physician: Care Physician,No Primary [NON-STAFF] - Please follow up with your Primary Care Physician in: [place] in 1 [place] 2 weeks
--- NOTE | 2020-09-01 10:10 | DS.PCM_ITS ---
Discharge Date and Diagnosis - Problem List Patient Problems: Active and Suspected Problems Sepsis (Acute) COVID-19 (Acute) Hypoxia (Acute) Date of Admission: 08/28/20 Date of Discharge: 09/01/20 - Primary Discharge Diagnosis Acute Problems: Active Problems Sepsis (Acute) COVID-19 (Acute) Hypoxia (Acute) COVID-19 pneumonia with bacterial pneumonia superinfection - Secondary Discharge Diagnosis Chronic Problems: Chronic Problems Hyperlipidemia (Chronic) Bipolar disorder (Chronic) Depression (Chronic) Charcot's joint of right foot (Chronic) Type 2 diabetes mellitus with diabetic polyneuropathy (Chronic) Hypertension (Chronic) Diabetic foot infection (Chronic) Thrombocytopenia (Chronic) possibly related to Zosyn and heparin used for DVT prophylaxis - it resolved PAD (peripheral artery disease) (Chronic) noel in the digits of the [facility] Course and Treatment Consultations 08/28/20 03:41 Consult: Onc/Wound/bark peeler Routine Comment: Reason for Consult:: Chronic right foot diabetic ulcer Operations: - - I&D with debridement of R foot abscess 10/01/[address] Marsh Summary of Care Provided: [] This is a 64 years old male patient presented to the emergency room from alf because of shortness of breath and because he tested positive for COVID-19 yesterday and is being admitted for acute COVID-19 pneumonia with acute hypoxic respiratory insufficiency as well as acute kidney injury and abnormal cardiac enzymes. 1. acute COVID 19 pneumonia on Decadron and remdesivir * on dexa and remdesivir. * Patient completed remdesivir and prescription given for dexamethasone to complete total of 10 days. 2. suspected pneumococcal pneumonia * CT reviewed and showed CHANDRAKANT and LLL pneumonia * continue ceftriaxone. Patient had 3 days of azithromycin and azithromycin discontinued. Patient discharged on cefdinir for total of 2 more days to co mplete of 7 days of antibiotic. * urinary antigens for strep and legionella negative. Patient did not have significant sputum production for culture. * Bronchopulmonary hygiene with incentive spirometry and chest physiotherapy. 3. acute hypoxic respiratory insufficiency * Secondary to COVID-19 pneumonia and bacterial pneumonia * wean oxygen as tolerated * Acute hypoxic respiratory surgery resolved. 4. DM2 * In alf, on high doses of basal and log as outpt of 96 BID and 64 TID, respectively * Blood sugar profile improved. Discharged on NovoLog insulin 2500 subcutaneous 3 times daily and insulin glargine 17 subcutaneous twice daily with holding parameters. 5. Bipolar disorder: intermediate patient is on 700 mg Seroquel along with other QT prolonging medication Zofran, hydroxyzine and Imitrex. Patient also on primidone, gabapentin. Exact indication of primidone and other medications unclear. [facility] and does not follow any psychiatrist or neurologist. EKG reviewed. QTC 501 ms. Seroquel dose was decreased to 400 mg. Zofran and hydroxyzine discontinued. Advised to follow-up psychiatrist in 2 to 3 weeks or neurologist. I talked to the patient myself and explained the potential side effect of QTC prolongation, arrhythmia, V. fib or torsade of QT prolongation. Patient understood it. 5. VTE prophylaxis: LMWH Discharge medication reconciliation done. Discharge follow-up instructions completed. Discharge process discussed with the patient and all questions were answered to patient's satisfaction. Patient discharged to SNF. Total time spent, exact 35 minutes on discharge meds reconciliation, examination, coordination of care with nurses and ancillary staff, review of imaging and blood test and discussion with the patient on follow-up instr uctions Patient Problems: Active and Suspected Problems Sepsis (Acute) COVID-19 (Acute) Hypoxia (Acute) Objective: Patient on room air 95% pulse ox. No fever or chills. Heart rate in 60s. Patient has history of bipolar and is on Seroquel, ondansetron, hydroxyzine at home which has QT prolonging effect. Physical exam General: Alert, Oriented x3, Cooperative HEENT: Atraumatic, PERRLA, EOMI, Normocephalic Oral: No Gingival or Mucosal Lesions/ Ulcerations Neck: Supple, No JVD, Negative Carotid Bruits Lungs: Air entry diminished in bilateral lung bases. Bilateral expiratory rhonchi present. Cardiovascular: Regular rate, Regular Rhythm, Normal S1, Normal S2, No murmurs Abdomen: Bowel Sounds Present, Soft, Non Tender, Non-Distended : No renal angle tenderness. No suprapubic tenderness. Extremities: No edema, Capillary Refill Less than 3 Seconds Skin: Ulcer on the ball of great toe on right foot. Mild bloody staining on the dressing. Musculoskeletal: No Tenderness to Palpation of Joints or Extremities. Weakness of bilateral lower extremity at hip and knee joints, 4+/5. Mild muscle atrophy. Neurological: Cranial nerves II-XII grossly intact, Deep Tendon Reflexes 2+/4 and Symmetrical, Neuro grossly intact Psych/Mental Status: Normal Affect, Appropriate. - Physical Exam Vitals/I&O's: Vital Signs Temp Pulse Resp BP Pulse Ox 97 F L 51 L 14 139/74 H 95 09/01/20 08:34 09/01/20 08:34 09/01/20 08:34 09/01/20 08:34 09/01/20 08:34 Oxygen Flow Rate (L/min) 3 Oxygen Delivery Method Room Air Weight: 179 lb 14.355 oz Body Mass Index (BMI) 26.5 Finger Stick Blood Glucose 256 Intake and Output for Last 24 Hours 08/30/20 08/31/20 09/01/20 23:59 23:59 23:59 Intake Total 1535.25 / 1535.25 690.25 / 690.25 474.5 / 474.5 Output Total 1675 / 1675 650 / 650 2200 / 2200 Balance -139.75 / -139.75 40.25 / 40.25 -1725.5 / -1725.5 Microbiology Past 72 Hours 08/28/20 01:25 Blood Culture (Wb) - Left Wrist Blood Culture - Preliminary No growth in 48 hours. 08/28/20 00:00 Blood Culture (Wb) - Anticubital Left Blood Culture - Preliminary No growth in 48 hours. 08/29/20 18:10 Urine, Random Streptococcus pneumoniae Antigen (M - Final 08/29/20 18:10 Urine, Random Legionella Antigen - Final Laboratory Results 08/31/20 11:43: POC Glucose 403 H 08/31/20 16:27: POC Glucose 474 H* 08/31/20 22:34: POC Glucose > 500 H* 09/01/20 00:47: POC Glucose 426 H 09/01/20 03:58: POC Glucose 360 H 09/01/20 07:25: WBC 5.8, RBC 4.28 L, Hgb 11.7 L, Hct 36.0 L, MCV 84.1, MCH 27.3, MCHC 32.5, RDW Std Deviation 42.0, RDW Coeff of Lissa 13.7, Plt Count 191, MPV 10.7 09/01/20 07:25: Sodium 137, Potassium 3.8, Chloride 107, Carbon Dioxide 24.0, Anion Gap 6, BUN 40 H, Creatinine 1.03, Estim Creat Clear Calc 70.55, Est GFR (MDRD) Af Amer 93, Est GFR (MDRD) Non-Af 77, BUN/Creatinine Ratio 38.8 H, Glucose 289 H, Calcium 9.3, Total Bilirubin 0.20, AST 18, ALT 19, Alkaline Phosphatase 88, Total Protein 7.9, Albumin 2.4 L, Globulin 5.5 H, Albumin/Globulin Ratio 0.4 L 09/01/20 08:07: POC Glucose 274 H Current Medications Acetaminophen (Acetaminophen 325 Mg Tablet) 650 mg PO Q6H PRN PRN PRN Reason: Pain Score 1-10/Temp > 100.7 F Last Admin: 08/28/20 05:12 Dose: 650 mg Documented by: Amlodipine Besylate (Amlodipine 10 Mg Tablet) 10 mg PO DAILY [facility] Last Admin: 09/01/20 08:18 Dose: 10 mg Documented by: Aspirin (Aspirin 81 Mg Tab.Chew) 81 mg PO DAILY [facility] Last Admin: 09/01/20 08:19 Dose: 81 mg Documented by: Buspirone HCl (Buspirone 5 Mg Tablet) 7.5 mg PO DAILY [facility] Last Admin: 09/01/20 08:18 Dose: 7.5 mg Documented by: Calamine/Phenol (Menthol/Lanolin/Calamine/Znox 113 Gm Tube) 1 applic TOPICAL TID [facility]; Protocol Last Admin: 09/01/20 06:57 Dose: 1 applicatio Documented by: Dexamethasone (Dexamethasone 4 Mg Tablet) 6 mg PO DAILY [facility] Stop: 09/06/20 10:01 Last Admin: 09/01/20 08:18 Dose: 6 mg Documented by: Divalproex Sodium (Divalproex (Er) 500 Mg Tablet) 1,000 mg PO QHS [facility] Last Admin: 08/31/20 22:38 Dose: 1,000 mg Documented by: Enoxaparin Sodium (Enoxaparin 30 Mg/0.3 Ml Syringe) 30 mg SC BID [facility] Last Admin: 09/01/20 08:17 Dose: 30 mg Documented by: Famotidine (Famotidine 20 Mg Tablet) 20 mg PO DAILY [facility] Last Admin: 09/01/20 08:19 Dose: 20 mg Documented by: Gabapentin (Gabapentin 600 Mg Tablet) 600 mg PO TIDCM [facility] Last Admin: 09/01/20 08:19 Dose: 600 mg Documented by: Hydralazine HCl (Hydralazine 25 Mg Tablet) 25 mg PO TID [facility] Last Admin: 09/01/20 07:02 Dose: 25 mg Documented by: Sodium Chloride () 250 mls @ 15 mls/hr IV .[id number] PRN PRN Reason: Saline Flush Last Infusion: 09/01/20 02:08 Dose: Infused Documented by: Ceftriaxone Sodium 2 gm/ (Sodium Chloride) 50 mls @ 100 mls/hr IV Q24 [facility] Last Admin: 09/01/20 08:15 Dose: 100 mls/hr Documented by: Insulin Glargine (Insulin Glargine 100 Units/Ml Pen) 60 units SC BID [facility] Last Admin: 09/01/20 08:20 Dose: 60 u Documented by: Insulin Human Lispro (Insulin Lispro 100 Unit/Ml Insuln.Pen) 0 unit SC ACHS [facility]; Protocol Last Admin: 09/01/20 06:04 Dose: Not Given Documented by: Insulin Human Lispro (Insulin Lispro 100 Unit/Ml Insuln.Pen) 20 unit SC TIDCM [facility] Last Admin: 09/01/20 08:19 Dose: 20 u Documented by: Lactulose (Lactulose 20 Gm/30 Ml Udc) 20 gm PO DAILY [facility] Last Admin: 09/01/20 08:18 Dose: 20 gm Documented by: Metoprolol Tartrate (Metoprolol Tartrate 50 Mg Tablet) 50 mg PO BID [facility] Last Admin: 09/01/20 08:18 Dose: Not Given Documented by: Ondansetron HCl (Ondansetron 4 Mg/2 Ml Vial) 4 mg IV Q8H PRN PRN PRN Reason: NAUSEA/VOMITING Pravastatin Sodium (Pravastatin 40 Mg Tablet) 40 mg PO BID [facility] Last Admin: 09/01/20 08:19 Dose: 40 mg Documented by: Primidone (Primidone 50 Mg Tablet) 50 mg PO QHS [facility] Last Admin: 08/31/20 22:37 Dose: 50 mg Documented by: Quetiapine Fumarate (Quetiapine 100 Mg Tablet) 400 mg PO QHS [facility] Rizatriptan Benzoate (Rizatriptan Benzoate 5 Mg Tablet) 5 mg PO Q2H PRN PRN PRN Reason: MIGRAINE SYMPTOMS Senna/Docusate Sodium (Senna/Docusate Sodium 1 Tablet) 2 tablet PO BID PRN PRN PRN Reason: Constipation Sodium Chloride (0.9% Saline Lock 10 Ml Syringe) 10 - 40 ml IV UD PRN PRN Reason: SALINE FLUSH Last Admin: 08/28/20 21:21 Dose: 10 ml Documented by: Tamsulosin HCl (Tamsulosin Hcl 0.4 Mg Capsule) 0.4 mg PO QHS [facility] Last Admin: 08/31/20 22:37 Dose: 0.4 mg Documented by: Tramadol HCl (Tramadol 50 Mg Tablet) 50 mg PO Q8H PRN PRN PRN Reason: Pain Score 1-10 Zolpidem Tartrate (Zolpidem Tartrate 5 Mg Tablet) 5 mg PO QHS PRN PRN PRN Reason: INSOMNIA Last Admin: 08/28/20 23:45 Dose: 5 mg Documented by: Home Medications: Medications to take at Discharge Aspirin 81 mg PO DAILY 09/30/17 Capsaicin 1 dose TOPICAL TID PRN PRN 09/30/17 Cholecalciferol (VIT D3) [Vitamin D3] 3,000 unit PO DAILY 09/30/17 Divalproex Sodium [Depakote ER] 1,000 mg PO QHS 09/30/17 Lostant-3 Fatty Acids/Fish Oil [Fish Oil 1,000 mg Capsule] 2 cap PO DAILY 09/30/17 Primidone [Mysoline] 50 mg PO QHS 09/30/17 Acetaminophen [Tylenol Tablet] 650 mg PO Q4H PRN PRN tablet 10/06/17 Magnesium Hydroxide [Milk Of Magnesia] 30 ml PO DAILY PRN PRN udc 10/06/17 Amlodipine [Norvasc] 10 mg PO DAILY 08/28/20 Buspirone HCl 7.5 mg PO DAILY 08/28/20 Famotidine 20 mg PO DAILY 08/28/20 Gabapentin [Neurontin] 600 mg PO TIDCM 08/28/20 Lactulose 30 ml PO DAILY 08/28/20 Metoprolol Tartrate [Lopressor (beta ramy)] 50 mg PO BID 08/28/20 Mineral Oil/Petrolatum,White [Eucerin] 1 applic TOPICAL BID PRN PRN 08/28/20 Pravastatin Sodium 40 mg PO BID 12/22/20 Sumatriptan Succinate [Imitrex] 25 mg PO Q2H PRN PRN 08/28/20 Tamsulosin HCl [Flomax] 0.4 mg PO QHS 08/28/20 Tramadol HCl 50 mg PO Q8H PRN PRN 08/28/20 Cefdinir 300 mg PO BID #4 cap 09/01/20 Dexamethasone [Decadron] 6 mg PO DAILY #4 tab 09/01/20 Hydralazine HCl 25 mg PO TID #0 09/01/20 Insulin Aspart [Novolog Flexpen] 25 units SC TIDCM #0 09/01/20 Insulin Glargine [Lantus SoloStar Pen] 70 units SC BID pen 09/01/20 Quetiapine Fumarate [Seroquel] 400 mg PO QHS tab 09/01/20 Following Prescriptions Were Given to Patient: Cefdinir 300 mg PO BID #4 cap Dexamethasone [Decadron] 6 mg PO DAILY #4 tab Primary Care Physician: Care Physician,No Primary [NON-STAFF] - Please follow up with [facility] Medical Necessity - Tobacco Use Smoking Status: Unknown if ever smoked Meaningful Use Info Meaningful Use Diagnoses (Choose all that apply): None applicable Inpatient E&M: [id number] [facility]
[2020-09-01] MEDS: Insulin Lispro 100 UNIT/ML INSULN.PEN SC (11:53)
[2020-09-01 12:10] LABS: Bedside Glucose 327 mg/dL (70-110)
== END 2020-09-01 13:40 | disposition skilled nursing facility (03) | DRG 871 ==
LOC: ED 08-28 02:33 → MS2 08-28 02:46
PROVIDERS: Internal Medicine; Internal Medicine Infectious Disease; Admitting Provider Hospitalist; Emergency Provider Emergency Medicine; PCP Family Medicine; Referring Provider Hospitalist; Visit Provider Internal Medicine
DX: A41.89 Other specified sepsis (principal); U07.1 COVID-19; J12.89 Other viral pneumonia; J15.9 Unspecified bacterial pneumonia; L02.611 Cutaneous abscess of right foot; I10 Essential (primary) hypertension; F31.9 Bipolar disorder, unspecified; E78.5 Hyperlipidemia, unspecified; E11.51 Type 2 diabetes mellitus with diabetic peripheral angiopathy without gangrene; E11.42 Type 2 diabetes mellitus with diabetic polyneuropathy; E11.610 Type 2 diabetes mellitus with diabetic neuropathic arthropathy; F17.200 Nicotine dependence, unspecified, uncomplicated; R09.02 Hypoxemia; E11.628 Type 2 diabetes mellitus with other skin complications; D69.6 Thrombocytopenia, unspecified; L97.519 Non-pressure chronic ulcer of other part of right foot with unspecified severity; N40.0 Benign prostatic hyperplasia without lower urinary tract symptoms
CPT/HCPCS: 36415; 71045; 71275; 80053; 80164; 82550; 82962; 83605; 83615; 83880; 84145; 84484; 85025; 85027; 85379; 85384; 85610; 86140; 87040; 87449; 93005; 97110; 97116; 97162; 97166; 97530; 97535; 99251; 99285; J7030; J7040; J7050; Q9967; A4216; G0463; J0696